=== PATIENT | male | born 1970 | race Caucasian/White ===

== ENCOUNTER 2022-06-12 12:04 | Inpatient (IN) ==
[2022-06-12] MEDS ORDERED: NALOXONE HCL 0.4 MG/1 ML VIAL/CARP ONE (12:19)
[2022-06-12] MEDS ORDERED: NALOXONE HCL 0.4 MG/1 ML VIAL/CARP IV STA (12:19)
--- NOTE | 2022-06-12 12:56 | CT Scan Report ---
CT SCAN OF THE BRAIN WITHOUT IV CONTRAST CLINICAL HISTORY: Change in mental status. COMPARISON STUDY: No priors TECHNIQUE: Unenhanced axial CT scan of the brain is performed from the vertex to the skull base. A d ose lowering technique was utilized adhering to the principles of ALARA. The patient was scanned twic e due to motion artifact. The examination is motion degraded. FINDINGS: Brain parenchyma: The brain parenchyma is normal in appearance. There is no hemorrhage, mass effect, or evidence of acute territorial ischemia by CT criteria. Seymour-white matter differentiation is preser ramone. No extra-axial fluid collection is seen. Ventricles, sulci, cisterns: Normal in configuration. Intracranial vasculature: The visualized intracranial vasculature at the skull base is normal in appe arance. Calvarium: Unremarkable. Sinuses and mastoids: There is trace mucosal thickening in the left maxillary antrum. The remaining p aranasal sinuses are clear. The mastoid air cells are well pneumatized. Orbits: The bony orbits are grossly intact. IMPRESSION: There is no hemorrhage, mass effect, or evidence of acute territorial ischemia by CT rashard flores. ACT 112: Negative or not required by law. Electronically signed by: Giovanni Vásquez M.D. 06/12/2022 12:54 PM
--- NOTE | 2022-06-12 13:00 | CT Scan Report ---
CT SCAN OF THE CERVICAL SPINE CLINICAL HISTORY: Change in mental status. Found unconscious. COMPARISON STUDY: No priors. TECHNIQUE: CT scan of the cervical spine is performed from the skull base to the upper thoracic spine . Images are reviewed in the axial, sagittal, and coronal planes. IV contrast was not administered fo r this examination. A dose lowering technique was utilized adhering to the principles of ALARA. CT DOSE: 2001.39 mGy.cm FINDINGS: Skeletal structures: The skeletal structures are well mineralized. There is no evidence of fracture o r subluxation involving the cervical spine. Vertebral body height and alignment are maintained. There are small anterior osteophytes. The odontoid process and lateral masses are intact. The atlantoaxial articulation is preserved no destructive productive degenerative change. The spinous processes appea r intact. Intervertebral discs: There is moderate to severe disc space narrowing at C6-C7. Only mild disc space narrowing is seen at the remaining cervical levels. Central canal: Posterior disc osteophyte complexes at C5-C6 and C6-C7 may contribute to mild acquired compromise of the central canal. Soft tissues: The prevertebral and paraspinous soft tissues are within normal limits. Calvarium: The visualized calvarium at the skull base appears intact. Brain parenchyma: Partially visualized brain parenchyma at the skull base is within normal limits. Sinuses and mastoids: The visualized paranasal sinuses are clear. The mastoid air cells are well pneu matized. Lung apices: Clear as visualized. IMPRESSION: There is no evidence of fracture or subluxation involving the cervical spine. ACT 112: Negative or not required by law. Electronically signed by: Giovanni Vásquez M.D. 06/12/2022 12:58 PM
[2022-06-12] MEDS ORDERED: SODIUM CHLORIDE 0.9% 1000ML 1,000 ML IV ONE (13:02)
[2022-06-12 13:15] LABS: Appearance Urine Cloudy (Clear); Bacteria Urine Automated Negative (Negative); Bilirubin Urine Negative (Negative); Blood Urine 2+ (Negative); Color Urine Yellow; Glucose Urine UA Negative (Negative); Ketones Urine 1+ (Negative); Leukocyte Esterase Urine Negative (Negative); Nitrite Urine Negative (Negative); Protein Urine Negative (Negative); RBC Urine Automated 0-4 /hpf (0-4); Urobilinogen Urine Negative (Negative); pH Urine 5.5 (4.5-7.5)
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
--- NOTE | 2022-06-12 13:27 | XRay Report ---
XR chest 1V portable CLINICAL HISTORY: ams TECHNIQUE: Single frontal radiograph of the chest was obtained. Comparison: None available at the time of this dictation. FINDINGS: No lines and tubes are seen. The cardiomediastinal silhouette is normal. The lungs are clear. No evid ence of pleural effusion or pneumothorax. IMPRESSION: No acute chest disease. ACT 112: Negative or not required by law. Electronically signed by: Dane Meadows M.D. 06/12/2022 1:25 PM
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
[2022-06-12 13:56] LABS: Acetaminophen < 3 ug/ml (10-30); Albumin Level 4.4 gm/dl (3.4-5.0); BUN Creatinine Ratio 20.5 (10-20); Bilirubin Direct 0.3 mg/dl (0-0.2); Bilirubin,Total 2.2 mg/dl (0.2-1.0); Creatinine Clr Calc Pharmacy 129.8 ml/min; Est GFR (African American) 115.3 ml/min; Est GFR (Non-African American) 99.5 ml/min; Magnesium 2.1 mg/dl (1.7-2.4); Potassium 3.8 mmol/L (3.5-5.1); Salicylate < 3.0 mg/dl (3.0-30); Total Protein 7.7 gm/dl (6.0-8.3)
[2022-06-12 13:59] LABS: Troponin I High Sensitivity 6.8 pg/ml (0-20)
[2022-06-12 14:00] LABS: Amphetamines+Metham, Urine Neg (Neg); Barbiturates, Urine Neg (Neg); Benzodiazepine, Urine Neg (Neg); Cocaine, Urine Neg (Neg); MDMA (Ecstacy), Urine Neg (Neg); Methadone, Urine Neg (Neg); Opiate, Urine Neg (Neg); Phencyclidine, Urine Neg (Neg)
[2022-06-12 14:17] LABS: Hematocrit (blood only) 44.4 % (40.1-51.0); Hemoglobin 15.3 g/dl (14.0-18.0); Mean Corpuscular Hemoglobin 30.7 pg (25.0-34.0); Mean Corpuscular Hgb Conc 34.5 g/dL (32.0-36.0); Mean Corpuscular Volume 89.2 fL (80.0-100.0); Mean Platelet Volume 9.6 fL (9.4-12.4); Platelet Count 280 K/uL (130-400); RDW Coefficient of Variation 13.2 % (11.5-14.5); RDW Standard Deviation 42.9 fL (36.4-46.3); Red Blood Count 4.98 M/uL (4.63-6.08)
[2022-06-12 14:20] LABS: INR 1.1 (0.9-1.1); Partial Thromboplastin Ratio 0.7; Partial Thromboplastin Time 20.5 Seconds (21.0-31.0); Prothrombin Time 11.3 Seconds (9.0-12.0)
[2022-06-12 14:28] LABS: Base Excess VBG 0.9 mEq/L; HCO3 VBG 24 mmol/L; Oxygen Saturation VBG 97.1 %; PCO2 VBG 32 mmHg (38-50); PO2 VBG 74 mmHg; pH VBG 7.48 (7.36-7.41)
[2022-06-12] MEDS ORDERED: RAPID SEQUENCE INDUCTION BAG ONE (14:29)
[2022-06-12 14:36] LABS: Basophils # (auto) 0.02 K/uL (0-0.2); Basophils % (auto) 0.1 %; Immature Granulocytes # (auto) 0.17 K/uL (0.00-0.02); Immature Granulocytes % (auto) 0.9 %; Lymphocytes # (auto) 0.73 K/uL (1.2-3.4); Lymphocytes % (auto) 3.8 %; Monocytes # (auto) 0.71 K/uL (0.24-0.82); Monocytes % (auto) 3.7 %; Neutrophils # (auto) 17.37 K/uL (1.4-6.5); Neutrophils % (auto) 91.5 %
[2022-06-12] MEDS ORDERED: PROPOFOL IV EMULSION 10 MG/ML 100 ML VIAL IV ONE (14:39)
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
[2022-06-12] MEDS ORDERED: VANCOMYCIN CONSULT ACTIVE PRN (14:47)
[2022-06-12] MEDS ORDERED: VANCOMYCIN HCL 2,750 MG in SODIUM CHLORIDE 0.9% 500 ML IV ONE (14:47)
[2022-06-12] MEDS ORDERED: cefTRIAXone SODIUM 2,000 MG/70 ML BAG IV STA (14:47)
[2022-06-12] MEDS: propofoL 1,000 MG/100 ML VIAL IV SCH ×3 (14:47→22:27)
[2022-06-12] MEDS ORDERED: fentaNYL citrate 2,500 MCG/250 ML BAG IV ONE (14:52)
[2022-06-12] MEDS ORDERED: fentaNYL BOLUS from BAG IV PRN (14:53)
[2022-06-12] MEDS ORDERED: PROPOFOL BOLUS FROM BAG IV PRN (14:53)
[2022-06-12] MEDS ORDERED: STAT IV Infusion **Titration per Protocol STA ×2 (14:53→16:45)
[2022-06-12] MEDS: fentaNYL citrate 2,500 MCG/250 ML BAG IV SCH (14:59)
[2022-06-12] MEDS ORDERED: VECURONIUM BROMIDE 10 MG VIAL IV ONE (15:19)
--- NOTE | 2022-06-12 15:30 | XRay Report ---
XR chest 1V portable CLINICAL HISTORY: ett placement TECHNIQUE: Single frontal radiograph of the chest was obtained. Comparison: Comparison is made to chest radiograph 06/12/2022 FINDINGS: An endotracheal tube is in place with the tip approximately 0.5 cm from the lissa. Cardiomegaly is n oted. Lungs are underinflated but clear. No evidence of pleural effusion or pneumothorax. IMPRESSION: Endotracheal tube is 0.5 cm above lissa and can be withdrawn approximately 2.5 cm for improved posit ioning. The lungs are clear. ACT 112: Negative or not required by law. Electronically signed by: Dane Meadows M.D. 06/12/2022 3:29 PM
[2022-06-12] MEDS ORDERED: XYLOCAINE 1%/SOD BICARB 20 ML VIAL INFIL ONE (15:33)
--- NOTE | 2022-06-12 16:42 | Electrocardiogram Report ---
Test Reason : Blood Pressure : / mmHG Vent. Rate : 078 BPM Atrial Rate : 078 BPM P-R Int : 162 ms QRS Dur : 108 ms QT Int : 384 ms P-R-T Axes : 040 047 042 degrees QTc Int : 437 ms Normal sinus rhythm Possible Left atrial enlargement Borderline ECG No previous ECGs available Confirmed by Oswaldo Osorio ([id number]) on 06/12/2022 4:42:18 PM Referred By: ED Confirmed By:Oswaldo Osorio
[2022-06-12] MEDS ORDERED: fentaNYL citrate 2,500 MCG/250 ML BAG IV SCH (16:45)
[2022-06-12] MEDS ORDERED: propofoL 1,000 MG/100 ML VIAL IV SCH (16:45)
[2022-06-12] MEDS ORDERED: AMPICILLIN 2,000 MG in SODIUM CHLOR 0.9% AD-VAN 100 ML IV STA (16:47)
[2022-06-12 16:51] LABS: Appearance CSF Hazy; CSF Count Tube # 3; CSF Xanthrochromic No xanthochromia; Color CSF Pink; Red Blood Cell CSF (A) 4000 /uL (0-); White Blood Cell CSF (A) 186 /uL (0-5)
[2022-06-12] MEDS ORDERED: DEXTROSE 5% IV STA (16:51)
[2022-06-12] MEDS ORDERED: ACYCLOVIR SOD IV STA (16:51)
[2022-06-12 16:57] LABS: Total Protein CSF 96.7 mg/dl (15-45)
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
[2022-06-12 17:41] LABS: Albumin Globulin Ratio 1.3 (0.9-2); Albumin Level 4.1 gm/dl (3.4-5.0); BUN Creatinine Ratio 20.2 (10-20); Calcium 8.2 mg/dl (8.5-10.1); Creatinine Clr Calc Pharmacy 109.8 ml/min; Est GFR (African American) 95.9 ml/min; Est GFR (Non-African American) 82.7 ml/min; Globulin 3.2 gm/dl (2.5-4.0); Phosphorus 2.4 mg/dl (2.5-4.9); Potassium 3.8 mmol/L (3.5-5.1); Total Protein 7.3 gm/dl (6.0-8.3)
[2022-06-12 17:44] LABS: Cryptococcus neoformans/ga PCR Not Detected (NotDetected); Cytomegalovirus PCR Not Detected (NotDetected); Enterovirus PCR Not Detected (NotDetected); Escherichia coli K1 PCR Not Detected (NotDetected); Haemophilius influenzae PCR Not Detected (NotDetected); Herpes Simplex Virus 1 PCR Not Detected (NotDetected); Herpes Simplex Virus 2 PCR Not Detected (NotDetected); Human Herpes Virus 6 PCR Not Detected (NotDetected); Human Parechovirus PCR Not Detected (NotDetected); Listeria monocytogenes PCR Not Detected (NotDetected); Neisseria meningitidis PCR Not Detected (NotDetected); Streptococcus agalactiae PCR Not Detected (NotDetected); Streptococcus pneumoniae PCR Not Detected (NotDetected); Varicella Zoster Virus PCR Not Detected (NotDetected)
--- NOTE | 2022-06-12 17:50 | Billing Data ---
Date of Service June 12, 2022 Coding Level of Care Code Critical Care 1st 30-74 mins Time Spent (min) 62
[2022-06-12] MEDS ORDERED: POTASSIUM PHOS 3 MMOL/1 ML INFUSION IV STA (17:53)
[2022-06-12] MEDS ORDERED: NORMOSOL-R 1,000 ML IV SCH (18:00)
[2022-06-12] MEDS ORDERED: ICU PROTOCOL FOR HYPERGLYCEMIA PRN (18:00)
[2022-06-12 18:13] LABS: Lyme Ab IgG w/WB Rflx Negative (Negative); Lyme Ab IgM w/WB Rflx Negative (Negative)
[2022-06-12 18:17] LABS: Mononuclear WBC CSF 85.9 %; Polynuclear WBC CSF 14.1 %
--- NOTE | 2022-06-12 18:44 | XRay Report ---
XR chest 1V portable HISTORY: NG tube placement. COMPARISON: Chest 06/12/2022. FINDINGS: Endotracheal tube terminates approximately 1.6 cm from the lissa. Nasogastric tube termina mireya below the diaphragm is within the distal stomach. No pneumothorax. No pleural effusions. There ar e low lung volumes. There is mild central pulmonary vascular congestion without overt edema. The hear t remains mildly enlarged. Right distal clavicle deformity appears to be chronic. Right suprahilar de nsity is likely due to the overlapping first rib. There is a right anterior shoulder dislocation. IMPRESSION: 1. The endotracheal tube terminates 1.6 cm from the lissa. 2. Nasogastric tube terminates at the distal stomach. 3. Right anterior shoulder dislocation. 4. Mild cardiomegaly with mild central pulmonary vascular congestion. ACT 112: Negative or not required by law. Electronically signed by: Oscar Vaughn M.D. 06/12/2022 6:42 PM
[2022-06-12] MEDS ORDERED: POTASSIUM PHOSPHATE 15 MMOL in SODIUM CHLORIDE 0.9% 250 ML IV ONE (18:45)
[2022-06-12] MEDS: PANTOprazole 40 MG in SYRINGE 0 ML IV SCH (18:57)
[2022-06-12 18:59] LABS: Thyroid Stimulating Hormone 0.287 uIu/ml (0.300-4.500)
[2022-06-12] MEDS: ACETAMINOPHEN 1000 MG/100 ML IV IV PRN (19:03)
[2022-06-12] MEDS: methylPREDNISolone 40 MG in SYRINGE 0 ML IV SCH (19:08)
[2022-06-12] MEDS ORDERED: ETOMIDATE 2 MG/ML 20 ML VIAL IV ONE (19:25)
[2022-06-12] MEDS ORDERED: SUCCINYLCHOLINE CHLORIDE 20 MG/ML 10 ML VIAL IV ONE (19:25)
[2022-06-12 19:39] LABS: T4 Free Thyroxine 0.71 ng/dl (0.61-1.60)
--- NOTE | 2022-06-12 20:33 | XRay Report ---
XR chest 1V portable HISTORY: while intubated, check line placments/lung wilson COMPARISON: Chest 06/12/2022. FINDINGS: There is a right anterior shoulder dislocation with a Hill-Sachs impaction fracture. This r emains unchanged. There are low lung volumes. The endotracheal tube terminates approximately 1.7 cm f rom the lissa. This remains unchanged. Nasogastric tube terminates in the distal stomach. The lungs appear clear. No pleural effusions. No pneumothorax. Stable mild cardiomegaly. Distal right clavicle deformity may represent an acute fracture. IMPRESSION: 1. Satisfactory support line placement as described above. 2. Right anterior shoulder dislocation with a Hill-Sachs impaction fracture. 3. Stable mild cardiomegaly. 4. Distal right clavicle deformity may represent an acute fracture. Follow-up dedicated right shoulde r radiograph recommended for further evaluation. ACT 112: Negative or not required by law. Electronically signed by: Oscar Vaughn M.D. 06/12/2022 8:31 PM
[2022-06-12] MEDS ORDERED: GADOBUTROL 65ML VIAL IV ONE (21:04)
[2022-06-12] MEDS: NORMOSOL-R 1,000 ML IV SCH (21:55)
[2022-06-12] MEDS: HEPARIN SOD 5,000 UNIT/0.5 ML VIAL SQ SCH (21:56)
[2022-06-12] MEDS ORDERED: ICU MODERATE HYPERGLYCEMIA PROTOCOL ONE (22:47)
[2022-06-12] MEDS ORDERED: PHARMACY GLYCEMIC MGMT CONSULT PRN (22:57)
[2022-06-12] MEDS ORDERED: CARBOHYDRATES FOR HYPOGLYCEMIA PO PRN (23:00)
[2022-06-12] MEDS ORDERED: GLUCAGON FOR INJ 1 MG VIAL IM PRN (23:00)
[2022-06-12] MEDS ORDERED: GLUCOSE 40% GEL 15 GM TUBE PO PRN (23:00)
[2022-06-12] MEDS ORDERED: DEXTROSE 50% 50 ML SYRINGE IV PRN (23:00)
[2022-06-12] MEDS ORDERED: GLUCOSE 10 TAB/TUBE PO PRN (23:00)
[2022-06-12] MEDS ORDERED: LANTUS PER UNIT CHARGE SQ ONE (23:15)
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
[2022-06-12] MEDS: INSULIN ASPART PER UNIT SC SCH (23:50)
[2022-06-12] MEDS: ALBUT/IPRATROP 3MG/0.5MG NEB 3 ML VIAL NEB SCH (23:56)
[2022-06-13] MEDS: propofoL 1,000 MG/100 ML VIAL IV SCH ×10 (00:56→21:29)
[2022-06-13] MEDS: AMPICILLIN 2,000 MG in SODIUM CHLOR 0.9% AD-VAN 100 ML IV SCH ×6 (01:37→21:48)
[2022-06-13] MEDS: cefTRIAXone SODIUM 2,000 MG in DEXTROSE 5% 50 ML IV SCH ×2 (03:02→15:10)
[2022-06-13] MEDS: VANCOMYCIN HCL 1,500 MG in SODIUM CHLORIDE 0.9% 500 ML IV SCH ×2 (03:36→15:11)
[2022-06-13] MEDS: INSULIN ASPART PER UNIT SC SCH ×5 (03:46→20:50)
[2022-06-13 04:34] LABS: iSTAT Allen Test Pass; iSTAT Art Bld Gas pCO2 Correct 44 mmHg (35-46); iSTAT Art Bld Gas pH Corrected 7.362 (7.35-7.45); iSTAT Arterial Blood Gas HCO3 25 meg/L (19-24); iSTAT Arterial Blood Gas pCO2 43 mmHg (35-46); iSTAT Arterial Blood Gas pH 7.37 (7.35-7.45); iSTAT Arterial Blood Gas pO2 90 mmHg (80-95); iSTAT Arterial Blood Gas pO2 C 94; iSTAT Carbon Dioxide 26 mmol/L (24-31); iSTAT FiO2 30 %; iSTAT Hematocrit 37 % (42-52); iSTAT Hemoglobin 12.6 g/dl (14.0-18.0); iSTAT Potassium 3.6 mmol/L (3.3-5.0); iSTAT Site L Radial; iSTAT Sodium 141 mmol/L (135-144)
[2022-06-13] MEDS: methylPREDNISolone 40 MG in SYRINGE 0 ML IV SCH ×2 (04:49→16:22)
[2022-06-13 05:15] LABS: Basophils # (auto) 0.02 K/uL (0-0.2); Basophils % (auto) 0.1 %; Hematocrit (blood only) 38.1 % (40.1-51.0); Hemoglobin 13.1 g/dl (14.0-18.0); Immature Granulocytes % (auto) 0.5 %; Lymphocytes # (auto) 1.58 K/uL (1.2-3.4); Lymphocytes % (auto) 8.1 %; Mean Corpuscular Hemoglobin 30.9 pg (25.0-34.0); Mean Corpuscular Hgb Conc 34.4 g/dL (32.0-36.0); Mean Corpuscular Volume 89.9 fL (80.0-100.0); Mean Platelet Volume 9.5 fL (9.4-12.4); Monocytes # (auto) 1.55 K/uL (0.24-0.82); Neutrophils # (auto) 16.15 K/uL (1.4-6.5); Neutrophils % (auto) 83.3 %; Platelet Count 195 K/uL (130-400); RDW Coefficient of Variation 13.5 % (11.5-14.5); RDW Standard Deviation 44.6 fL (36.4-46.3); Red Blood Count 4.24 M/uL (4.63-6.08)
[2022-06-13] MEDS: HEPARIN SOD 5,000 UNIT/0.5 ML VIAL SQ SCH ×3 (05:35→21:47)
[2022-06-13 05:47] LABS: Albumin Level 3.6 gm/dl (3.4-5.0); BUN Creatinine Ratio 21.3 (10-20); Bilirubin Direct 0.2 mg/dl (0-0.2); Bilirubin,Total 0.9 mg/dl (0.2-1.0); Calcium 7.7 mg/dl (8.5-10.1); Creatinine Clr Calc Pharmacy 103.9 ml/min; Est GFR (African American) 108.4 ml/min; Est GFR (Non-African American) 93.5 ml/min; Magnesium 2.2 mg/dl (1.7-2.4); Potassium 3.7 mmol/L (3.5-5.1); Total Protein 6.3 gm/dl (6.0-8.3)
[2022-06-13] MEDS: DEXTROSE 5% IV SCH ×3 (06:00→21:47)
[2022-06-13] MEDS: ACYCLOVIR SOD IV SCH ×3 (06:00→21:47)
[2022-06-13 06:24] LABS: A calco-baum cmplx NotReported Not Detected (NotDetected); Bact fragilis Not Reported Not Detected (NotDetected); C auris Not Reported Not Detected (NotDetected); Calbicans Not Reported Not Detected (NotDetected); Candida glabrata Not Reported Not Detected (NotDetected); Candida krusei Not Reported Not Detected (NotDetected); Cneoformans/gatti Not Reported Not Detected (NotDetected); Cparapsilosis Not Reported Not Detected (NotDetected); Ctropicalis Not Reported Not Detected (NotDetected); E cloacae compx Not Reported Not Detected (NotDetected); Efaecalis Not Reported Not Detected (NotDetected); Efaecium Not Reported Not Detected (NotDetected); Enterobacterales Not Reported Not Detected (NotDetected); Escherichia coli Not Reported Not Detected (NotDetected); H influenzae Not Reported Not Detected (NotDetected); K aerogenes Not Reported Not Detected (NotDetected); Koxytoca Not Reported Not Detected (NotDetected); Kpneumoniae grp Not Reported Not Detected (NotDetected); Lmonocyt Not Reported Not Detected (NotDetected); N meningitidis Not Reported Not Detected (NotDetected); P aeruginosa Not Reported Not Detected (NotDetected); Proteus spp Not Reported Not Detected (NotDetected); Salmonella spp Not Reported Not Detected (NotDetected); Smarcescens Not Reported Not Detected (NotDetected); Staph lugdunensis Not Reported DETECTED (NotDetected); Staph spp. Not Reported DETECTED (NotDetected); Staphaureus Not Reported Not Detected (NotDetected); Staphepi Not Reported DETECTED (NotDetected); Stenmaltophilia Not Reported Not Detected (NotDetected); Strep agal(GrpB) Not Reported Not Detected (NotDetected); Strep pneum Not Reported Not Detected (NotDetected); Strep pyog (GrpA) Not Reported Not Detected (NotDetected); Strep spp Not Reported Not Detected (NotDetected); mecAC Resistant Gene Not Detected (NotDetected)
[2022-06-13 06:27] LABS: Staphylococcus epidermidis DETECTED (NotDetected); Staphylococcus spp. DETECTED (NotDetected)
[2022-06-13 06:28] LABS: Staphylococcus lugdunensis DETECTED (NotDetected)
[2022-06-13] MEDS: ACETAMINOPHEN 1000 MG/100 ML IV IV PRN ×2 (06:33→16:22)
[2022-06-13] MEDS: NORMOSOL-R 1,000 ML IV SCH (06:46)
[2022-06-13] MEDS: ALBUT/IPRATROP 3MG/0.5MG NEB 3 ML VIAL NEB SCH ×3 (07:00→22:21)
--- NOTE | 2022-06-13 07:50 | XRay Report ---
SINGLE VIEW RIGHT SHOULDER CLINICAL HISTORY: Postreduction examination. FINDINGS: An AP view of the right shoulder is compared to study performed earlier the same day 022. The skeletal structures are well mineralized. There is persistent anterior shoulder dislocation. Again seen is a displaced avulsion fracture of the right humeral head and neck with a large dorsally displaced fragment. No additional fracture is clearly seen. Overlying soft tissue edema is noted pro ductive degenerative change is present at the acromioclavicular joint. The right lung parenchyma is c lear as imaged. IMPRESSION: 1. Persistent anterior shoulder dislocation. 2. A displaced fracture of the right humeral head and neck is again noted. Electronically signed by: Giovanni Vásquez M.D. 06/13/2022 7:49 AM
--- NOTE | 2022-06-13 08:11 | Magnetic Resonance Report ---
MRI OF THE BRAIN COMBO CLINICAL HISTORY: Change in mental status. Found unresponsive. Concern for meningitis. COMPARISON STUDY: CT of the brain dated 06/12/2022. TECHNIQUE: MRI of the brain was performed utilizing various T1 and T2-weighted sequences in the axial , sagittal, and coronal planes. Contrast-enhanced sequences were acquired following the administratio n of 12 cc of Gadavist. FINDINGS: Brain parenchyma: There is no hemorrhage or mass effect. There is no restricted diffusion to suggest acute ischemia. Question subtle leptomeningeal enhancement along the cerebellar cortex. This is best seen on axial postcontrast image #9. No enhancing mass lesion is identified on the postcontrast image s. Seymour-white matter differentiation is preserved. No extra-axial fluid collection is seen. The cereb ellar tonsils are normal in configuration. Ventricles, sulci, and cisterns: Normal in configuration. Pituitary and sella: Unremarkable. Intracranial vasculature: Normal flow voids are maintained at the skull base. Orbits: The bony orbits are grossly intact. Orbital contents are normal in appearance. Sinuses and mastoids: CT of the brain dated 06/12/2022. There is moderate mucosal thickening within th e ethmoid sinuses. Mild mucosal thickening is noted within the maxillary, frontal, and sphenoid sinus es. There is a small left mastoid effusion. Calvarium: Unremarkable. Cervical cord: Partially visualized cervical spinal cord is normal in morphology and signal intensity . IMPRESSION: 1. There is no hemorrhage, mass effect, or evidence of acute ischemia. 2. Question subtle leptomeningeal enhancement along the cerebellar cortex. This could be seen with me alex in the appropriate clinical setting. Correlate with clinical findings and lumbar puncture re sults. ACT 112: Negative or not required by law. Electronically signed by: Giovanni Vásquez M.D. 06/13/2022 8:08 AM
--- NOTE | 2022-06-13 08:34 | Critical Care Progress Note ---
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 (280-300) mOsm/kg Lactate (0.4-2.0) mmol/L Calcium (8.5-10.1) mg/dl Phosphorus (2.5-4.9) mg/dl Magnesium (1.7-2.4) mg/dl Total Bilirubin (0.2-1.0) mg/dl Direct Bilirubin (0-0.2) mg/dl AST (13-39) U/L ALT (7-52) U/L Alkaline Phosphatase (34-104) U/L Ammonia Troponin I High Sens (0-20) pg/ml Total Protein (6.0-8.3) gm/dl Albumin (3.4-5.0) gm/dl Globulin (2.5-4.0) gm/dl Albumin/Globulin Ratio (0.9-2) Lipase (11-82) U/L Procalcitonin (0-0.5) ng/ml TSH 0.287 L (0.300-4.500) uIu/ml Free T4 0.71 (0.61-1.60) ng/dl Prolactin ng/ml Urine Color Urine Appearance (Clear) Urine pH (4.5-7.5) Ur Specific [place] (1.000-1.030) Urine Protein (Negative) Urine Glucose (UA) (Negative) Urine Ketones (Negative) Urine Blood (Negative) Urine Nitrite (Negative) Urine Bilirubin (Negative) Urine Urobilinogen (Negative) Ur Leukocyte Esterase (Negative) Urine WBC (Auto) (0-5) /hpf Urine RBC (Auto) (0-4) /hpf U Hyaline Cast (Auto) (0-5) /lpf U Epithel Cells (Auto) (0-5) /lpf Urine Bacteria (Auto) (Negative) Urine Osmolality 741 (500-800) mOsm/kg Fluid Comment CSF Appearance CSF Color Xanthrochromic CSF WBC (0-5) /uL CSF RBC (0-) /uL CSF Cell Count Tube # CSF Mononuclear WBCs % % CSF Polynuclear WBCs % % CSF Chemistry Tube # CSF Glucose (40-70) mg/dl CSF Total Protein (15-45) mg/dl CSF VDRL CSF C.neoform/gat PCR (NotDetected) CSF CMV DNA (PCR) (NotDetected) CSF Enterovirus (PCR) (NotDetected) CSF E. coli K1 (PCR) (NotDetected) CSF H. influenzae (PCR) (NotDetected) CSF HSV I (PCR) (NotDetected) CSF HSV II (PCR) (NotDetected) CSF HHV 6 (PCR) (NotDetected) CSF L.monocytogenes PCR (NotDetected) CSF N. meningitidis PCR (NotDetected) CSF Parechovirus (PCR) (NotDetected) CSF S. agalactiae (PCR) (NotDetected) CSF S. pneumoniae (PCR) (NotDetected) CSF VZV DNA (PCR) (NotDetected) Nasal Screen MRSA (PCR) Negative (Negative) Salicylates (3.0-30) mg/dl Urine Opiates Screen (Neg) Ur Methadone, Qual (Neg) Acetaminophen (10-30) ug/ml Urine Barbiturates (Neg) Ur Phencyclidine (PCP) (Neg) U Amphetamin/Meth Scrn (Neg) MDMA (Ecstasy) Screen (Neg) U Benzodiazepines Scrn (Neg) Ur Cocaine Metabolite (Neg) U Marijuana (THC) Screen (Neg) U Marijuana THC Carboxy Drug Screen Comment Ethyl Alcohol mg/dL (<10.0) mg/dl Anaplasma Smear Babesia Smear Lyme Disease IgG Ab (Negative) Lyme IgG (Western Blot) Lyme IgG 18 kDa Band Lyme IgG 23 kDa Band Lyme IgG 28 kDa Band Lyme IgG 30 kDa Band Lyme IgG 39 kDa Band Lyme IgG 41 kDa Band Lyme IgG 45 kDa Band Lyme IgG 58 kDa Band Lyme IgG 66 kDa Band Lyme IgG 93 kDa Band Lyme IgM Ab (WB) Lyme Disease IgM Ab (Negative) Lyme IgM 23 kDa Band Lyme IgM 39 kDa Band Lyme IgM 41 kDa Band E.chaffeensis DNA (PCR) Q Fever Phase I IgG Ab Q Fever Phase I IgM Ab Q Fever Phase II IgG Ab Q Fever Phase II IgM Ab Rickettsia IgG Ab Rickettsia IgM Ab SARS-CoV-2, RNA, NAAT (NEGATIVE) Staphylococcus sp PCR (NotDetected) mecA/C-Methicil Resis Gene (NotDetected) Staph epidermidis (PCR) (NotDetected) Staph lugdunensis PCR (NotDetected) Typhus Fever IgG Ab Typhus Fever IgM Ab Bld Cult ID Panel PCR (NotDetected) 06/12/22 06/12/22 06/12/22 Range/Units 17:03 17:03 17:03 WBC (4.8-10.8) K/ul RBC (4.63-6.08) M/uL Hgb (14.0-18.0) g/dl POC Hgb (14.0-18.0) g/dl Hct (40.1-51.0) % POC Hct (42-52) % MCV (80.0-100.0) fL MCH (25.0-34.0) pg MCHC (32.0-36.0) g/dL RDW Std Deviation (36.4-46.3) fL RDW Coeff of Rob (11.5-14.5) % Plt Count (130-400) K/uL MPV (9.4-12.4) fL Immature Gran % (Auto) % Neut % (Auto) % Lymph % (Auto) % [place] % (Auto) % Eos % (Auto) % Baso % (Auto) % Neut # (Auto) (1.4-6.5) K/uL Lymph # (Auto) (1.2-3.4) K/uL [place] # (Auto) (0.24-0.82) K/uL Eos # (Auto) (0-0.50) K/uL Baso # (Auto) (0-0.2) K/uL Immature Gran # (Auto) (0.00-0.02) K/uL PT INR APTT PTT Ratio Sample Site POC pH (7.35-7.45) POC pCO2 (35-46) mmHg POC pO2 (80-95) mmHg POC HCO3 (19-24) angelito/L POC Total CO2 (24-31) mmol/L POC Base Excess (-9-1.8) angelito/L ABG pH (Temp Correct) (7.35-7.45) ABG pCO2 (Temp Corrct (35-46) mmHg POC ABG pO2 at Pt Temp POC ABG O2 Sat (90-95) % Lior Test VBG pH (7.36-7.41) VBG pCO2 (38-50) mmHg VBG pO2 mmHg VBG HCO3 mmol/L VBG O2 Saturation % VBG Base Excess mEq/L Carboxyhemoglobin % THgb O2 Delivery Device POC O2 Rate Minute Ventilation POC FiO2 % Tidal Volume PEEP POC Sodium (135-144) mmol/L Sodium (136-145) mmol/L POC Potassium (3.3-5.0) mmol/L Potassium (3.5-5.1) mmol/L Chloride (98-107) mmol/L Carbon Dioxide (21-32) mmol/L Anion Gap (3-11) BUN (6-23) mg/dl Creatinine (0.6-1.4) mg/dl Est Cr Clr Drug Dosing ml/min Est GFR ( Amer) ml/min Est GFR (Non-Af Amer) ml/min BUN/Creatinine Ratio (10-20) Glucose (70-99(Fasting)) mg/dl POC Glucose (70-99) mg/dl Osmolality (280-300) mOsm/kg Lactate (0.4-2.0) mmol/L Calcium (8.5-10.1) mg/dl Phosphorus (2.5-4.9) mg/dl Magnesium (1.7-2.4) mg/dl Total Bilirubin (0.2-1.0) mg/dl Direct Bilirubin (0-0.2) mg/dl AST (13-39) U/L ALT (7-52) U/L Alkaline Phosphatase (34-104) U/L Ammonia Troponin I High Sens (0-20) pg/ml Total Protein (6.0-8.3) gm/dl Albumin (3.4-5.0) gm/dl Globulin (2.5-4.0) gm/dl Albumin/Globulin Ratio (0.9-2) Lipase (11-82) U/L Procalcitonin (0-0.5) ng/ml TSH (0.300-4.500) uIu/ml Free T4 (0.61-1.60) ng/dl Prolactin ng/ml Urine Color Urine Appearance (Clear) Urine pH (4.5-7.5) Ur Specific [place] (1.000-1.030) Urine Protein (Negative) Urine Glucose (UA) (Negative) Urine Ketones (Negative) Urine Blood (Negative) Urine Nitrite (Negative) Urine Bilirubin (Negative) Urine Urobilinogen (Negative) Ur Leukocyte Esterase (Negative) Urine WBC (Auto) (0-5) /hpf Urine RBC (Auto) (0-4) /hpf U Hyaline Cast (Auto) (0-5) /lpf U Epithel Cells (Auto) (0-5) /lpf Urine Bacteria (Auto) (Negative) Urine Osmolality (500-800) mOsm/kg Fluid Comment CSF Appearance CSF Color Xanthrochromic CSF WBC (0-5) /uL CSF RBC (0-) /uL CSF Cell Count Tube # CSF Mononuclear WBCs % % CSF Polynuclear WBCs % % CSF Chemistry Tube # CSF Glucose (40-70) mg/dl CSF Total Protein (15-45) mg/dl CSF VDRL CSF C.neoform/gat PCR (NotDetected) CSF CMV DNA (PCR) (NotDetected) CSF Enterovirus (PCR) (NotDetected) CSF E. coli K1 (PCR) (NotDetected) CSF H. influenzae (PCR) (NotDetected) CSF HSV I (PCR) (NotDetected) CSF HSV II (PCR) (NotDetected) CSF HHV 6 (PCR) (NotDetected) CSF L.monocytogenes PCR (NotDetected) CSF N. meningitidis PCR (NotDetected) CSF Parechovirus (PCR) (NotDetected) CSF S. agalactiae (PCR) (NotDetected) CSF S. pneumoniae (PCR) (NotDetected) CSF VZV DNA (PCR) (NotDetected) Nasal Screen MRSA (PCR) (Negative) Salicylates (3.0-30) mg/dl Urine Opiates Screen (Neg) Ur Methadone, Qual (Neg) Acetaminophen (10-30) ug/ml Urine Barbiturates (Neg) Ur Phencyclidine (PCP) (Neg) U Amphetamin/Meth Scrn (Neg) MDMA (Ecstasy) Screen (Neg) U Benzodiazepines Scrn (Neg) Ur Cocaine Metabolite (Neg) U Marijuana (THC) Screen (Neg) U Marijuana THC Carboxy Drug Screen Comment Ethyl Alcohol mg/dL (<10.0) mg/dl Anaplasma Smear See Comment Babesia Smear See Comment Lyme Disease IgG Ab (Negative) Lyme IgG (Western Blot) Lyme IgG 18 kDa Band Lyme IgG 23 kDa Band Lyme IgG 28 kDa Band Lyme IgG 30 kDa Band Lyme IgG 39 kDa Band Lyme IgG 41 kDa Band Lyme IgG 45 kDa Band Lyme IgG 58 kDa Band Lyme IgG 66 kDa Band Lyme IgG 93 kDa Band Lyme IgM Ab (WB) Lyme Disease IgM Ab (Negative) Lyme IgM 23 kDa Band Lyme IgM 39 kDa Band Lyme IgM 41 kDa Band E.chaffeensis DNA (PCR) Pending Q Fever Phase I IgG Ab Pending Q Fever Phase I IgM Ab Pending Q Fever Phase II IgG Ab Pending Q Fever Phase II IgM Ab Pending [place] IgG Ab Pending [place] IgM Ab Pending SARS-CoV-2, RNA, NAAT (NEGATIVE) Staphylococcus sp PCR (NotDetected) mecA/C-Methicil Resis Gene (NotDetected) Staph epidermidis (PCR) (NotDetected) Staph lugdunensis PCR (NotDetected) Typhus Fever IgG Ab Pending Typhus Fever IgM Ab Pending Bld Cult ID Panel PCR (NotDetected) 06/12/22 06/12/22 06/12/22 Range/Units 17:03 16:36 16:36 WBC (4.8-10.8) K/ul RBC (4.63-6.08) M/uL Hgb (14.0-18.0) g/dl POC Hgb (14.0-18.0) g/dl Hct (40.1-51.0) % POC Hct (42-52) % MCV (80.0-100.0) fL MCH (25.0-34.0) pg MCHC (32.0-36.0) g/dL RDW Std Deviation (36.4-46.3) fL RDW Coeff of Rob (11.5-14.5) % Plt Count (130-400) K/uL MPV (9.4-12.4) fL Immature Gran % (Auto) % Neut % (Auto) % Lymph % (Auto) % [place] % (Auto) % Eos % (Auto) % Baso % (Auto) % Neut # (Auto) (1.4-6.5) K/uL Lymph # (Auto) (1.2-3.4) K/uL [place] # (Auto) (0.24-0.82) K/uL Eos # (Auto) (0-0.50) K/uL Baso # (Auto) (0-0.2) K/uL Immature Gran # (Auto) (0.00-0.02) K/uL PT INR APTT PTT Ratio Sample Site POC pH (7.35-7.45) POC pCO2 (35-46) mmHg POC pO2 (80-95) mmHg POC HCO3 (19-24) angelito/L POC Total CO2 (24-31) mmol/L POC Base Excess (-9-1.8) angelito/L ABG pH (Temp Correct) (7.35-7.45) ABG pCO2 (Temp Corrct (35-46) mmHg POC ABG pO2 at Pt Temp POC ABG O2 Sat (90-95) % Lior Test VBG pH (7.36-7.41) VBG pCO2 (38-50) mmHg VBG pO2 mmHg VBG HCO3 mmol/L VBG O2 Saturation % VBG Base Excess mEq/L Carboxyhemoglobin % THgb O2 Delivery Device POC O2 Rate Minute Ventilation POC FiO2 % Tidal Volume PEEP POC Sodium (135-144) mmol/L Sodium 139 (136-145) mmol/L POC Potassium (3.3-5.0) mmol/L Potassium 3.8 (3.5-5.1) mmol/L Chloride 108 H (98-107) mmol/L Carbon Dioxide 24 (21-32) mmol/L Anion Gap 7 (3-11) BUN 21 (6-23) mg/dl Creatinine 1.04 (0.6-1.4) mg/dl Est Cr Clr Drug Dosing 109.8 ml/min Est GFR ( Amer) 95.9 ml/min Est GFR (Non-Af Amer) 82.7 ml/min BUN/Creatinine Ratio 20.2 H (10-20) Glucose 169 H (70-99(Fasting)) mg/dl POC Glucose (70-99) mg/dl Osmolality (280-300) mOsm/kg Lactate (0.4-2.0) mmol/L Calcium 8.2 L (8.5-10.1) mg/dl Phosphorus 2.4 L (2.5-4.9) mg/dl Magnesium 2.0 (1.7-2.4) mg/dl Total Bilirubin 2.0 H (0.2-1.0) mg/dl Direct Bilirubin (0-0.2) mg/dl AST 31 (13-39) U/L ALT 25 (7-52) U/L Alkaline Phosphatase 39 (34-104) U/L Ammonia Troponin I High Sens (0-20) pg/ml Total Protein 7.3 (6.0-8.3) gm/dl Albumin 4.1 (3.4-5.0) gm/dl Globulin 3.2 (2.5-4.0) gm/dl Albumin/Globulin Ratio 1.3 (0.9-2) Lipase (11-82) U/L Procalcitonin (0-0.5) ng/ml TSH (0.300-4.500) uIu/ml Free T4 (0.61-1.60) ng/dl Prolactin ng/ml Urine Color Urine Appearance (Clear) Urine pH (4.5-7.5) Ur Specific [place] (1.000-1.030) Urine Protein (Negative) Urine Glucose (UA) (Negative) Urine Ketones (Negative) Urine Blood (Negative) Urine Nitrite (Negative) Urine Bilirubin (Negative) Urine Urobilinogen (Negative) Ur Leukocyte Esterase (Negative) Urine WBC (Auto) (0-5) /hpf Urine RBC (Auto) (0-4) /hpf U Hyaline Cast (Auto) (0-5) /lpf U Epithel Cells (Auto) (0-5) /lpf Urine Bacteria (Auto) (Negative) Urine Osmolality (500-800) mOsm/kg Fluid Comment CSF Appearance CSF Color Xanthrochromic CSF WBC (0-5) /uL CSF RBC (0-) /uL CSF Cell Count Tube # CSF Mononuclear WBCs % % CSF Polynuclear WBCs % % CSF Chemistry Tube # CSF Glucose (40-70) mg/dl CSF Total Protein (15-45) mg/dl CSF VDRL CSF C.neoform/gat PCR (NotDetected) CSF CMV DNA (PCR) (NotDetected) CSF Enterovirus (PCR) (NotDetected) CSF E. coli K1 (PCR) (NotDetected) CSF H. influenzae (PCR) (NotDetected) CSF HSV I (PCR) (NotDetected) CSF HSV II (PCR) (NotDetected) CSF HHV 6 (PCR) (NotDetected) CSF L.monocytogenes PCR (NotDetected) CSF N. meningitidis PCR (NotDetected) CSF Parechovirus (PCR) (NotDetected) CSF S. agalactiae (PCR) (NotDetected) CSF S. pneumoniae (PCR) (NotDetected) CSF VZV DNA (PCR) (NotDetected) Nasal Screen MRSA (PCR) (Negative) Salicylates (3.0-30) mg/dl Urine Opiates Screen (Neg) Ur Methadone, Qual (Neg) Acetaminophen (10-30) ug/ml Urine Barbiturates (Neg) Ur Phencyclidine (PCP) (Neg) U Amphetamin/Meth Scrn (Neg) MDMA (Ecstasy) Screen (Neg) U Benzodiazepines Scrn (Neg) Ur Cocaine Metabolite (Neg) U Marijuana (THC) Screen (Neg) U Marijuana THC Carboxy Drug Screen Comment Ethyl Alcohol mg/dL (<10.0) mg/dl Anaplasma Smear Babesia Smear Lyme Disease IgG Ab Negative (Negative) Lyme IgG (Western Blot) Pending Lyme IgG 18 kDa Band Pending Lyme IgG 23 kDa Band Pending Lyme IgG 28 kDa Band Pending Lyme IgG 30 kDa Band Pending Lyme IgG 39 kDa Band Pending Lyme IgG 41 kDa Band Pending Lyme IgG 45 kDa Band Pending Lyme IgG 58 kDa Band Pending Lyme IgG 66 kDa Band Pending Lyme IgG 93 kDa Band Pending Lyme IgM Ab (WB) Pending Lyme Disease IgM Ab Negative (Negative) Lyme IgM 23 kDa Band Pending Lyme IgM 39 kDa Band Pending Lyme IgM 41 kDa Band Pending E.chaffeensis DNA (PCR) Q Fever Phase I IgG Ab Q Fever Phase I IgM Ab Q Fever Phase II IgG Ab Q Fever Phase II IgM Ab [place]ettsia IgG Ab Rickettsia IgM Ab SARS-CoV-2, RNA, NAAT (NEGATIVE) Staphylococcus sp PCR (NotDetected) mecA/C-Methicil Resis Gene (NotDetected) Staph epidermidis (PCR) (NotDetected) Staph lugdunensis PCR (NotDetected) Typhus Fever IgG Ab Typhus Fever IgM Ab Bld Cult ID Panel PCR (NotDetected) 06/12/22 06/12/22 06/12/22 Range/Units 15:59 15:45 15:45 WBC (4.8-10.8) K/ul RBC (4.63-6.08) M/uL Hgb (14.0-18.0) g/dl POC Hgb (14.0-18.0) g/dl Hct (40.1-51.0) % POC Hct (42-52) % MCV (80.0-100.0) fL MCH (25.0-34.0) pg MCHC (32.0-36.0) g/dL RDW Std Deviation (36.4-46.3) fL RDW Coeff of Rob (11.5-14.5) % Plt Count (130-400) K/uL MPV (9.4-12.4) fL Immature Gran % (Auto) % Neut % (Auto) % Lymph % (Auto) % [place] % (Auto) % Eos % (Auto) % Baso % (Auto) % Neut # (Auto) (1.4-6.5) K/uL Lymph # (Auto) (1.2-3.4) K/uL [place] # (Auto) (0.24-0.82) K/uL Eos # (Auto) (0-0.50) K/uL Baso # (Auto) (0-0.2) K/uL Immature Gran # (Auto) (0.00-0.02) K/uL PT INR APTT PTT Ratio Sample Site POC pH (7.35-7.45) POC pCO2 (35-46) mmHg POC pO2 (80-95) mmHg POC HCO3 (19-24) angelito/L POC Total CO2 (24-31) mmol/L POC Base Excess (-9-1.8) angelito/L ABG pH (Temp Correct) (7.35-7.45) ABG pCO2 (Temp Corrct (35-46) mmHg POC ABG pO2 at Pt Temp POC ABG O2 Sat (90-95) % Lior Test VBG pH (7.36-7.41) VBG pCO2 (38-50) mmHg VBG pO2 mmHg VBG HCO3 mmol/L VBG O2 Saturation % VBG Base Excess mEq/L Carboxyhemoglobin % THgb O2 Delivery Device POC O2 Rate Minute Ventilation POC FiO2 % Tidal Volume PEEP POC Sodium (135-144) mmol/L Sodium (136-145) mmol/L POC Potassium (3.3-5.0) mmol/L Potassium (3.5-5.1) mmol/L Chloride (98-107) mmol/L Carbon Dioxide (21-32) mmol/L Anion Gap (3-11) BUN (6-23) mg/dl Creatinine (0.6-1.4) mg/dl Est Cr Clr Drug Dosing ml/min Est GFR ( Amer) ml/min Est GFR (Non-Af Amer) ml/min BUN/Creatinine Ratio (10-20) Glucose (70-99(Fasting)) mg/dl POC Glucose (70-99) mg/dl Osmolality (280-300) mOsm/kg Lactate (0.4-2.0) mmol/L Calcium (8.5-10.1) mg/dl Phosphorus (2.5-4.9) mg/dl Magnesium (1.7-2.4) mg/dl Total Bilirubin (0.2-1.0) mg/dl Direct Bilirubin (0-0.2) mg/dl AST (13-39) U/L ALT (7-52) U/L Alkaline Phosphatase (34-104) U/L Ammonia Troponin I High Sens (0-20) pg/ml Total Protein (6.0-8.3) gm/dl Albumin (3.4-5.0) gm/dl Globulin (2.5-4.0) gm/dl Albumin/Globulin Ratio (0.9-2) Lipase (11-82) U/L Procalcitonin (0-0.5) ng/ml TSH (0.300-4.500) uIu/ml Free T4 (0.61-1.60) ng/dl Prolactin ng/ml Urine Color Urine Appearance (Clear) Urine pH (4.5-7.5) Ur Specific [place] (1.000-1.030) Urine Protein (Negative) Urine Glucose (UA) (Negative) Urine Ketones (Negative) Urine Blood (Negative) Urine Nitrite (Negative) Urine Bilirubin (Negative) Urine Urobilinogen (Negative) Ur Leukocyte Esterase (Negative) Urine WBC (Auto) (0-5) /hpf Urine RBC (Auto) (0-4) /hpf U Hyaline Cast (Auto) (0-5) /lpf U Epithel Cells (Auto) (0-5) /lpf Urine Bacteria (Auto) (Negative) Urine Osmolality (500-800) mOsm/kg Fluid Comment CSF Appearance CSF Color Xanthrochromic CSF WBC (0-5) /uL CSF RBC (0-) /uL CSF Cell Count Tube # CSF Mononuclear WBCs % % CSF Polynuclear WBCs % % CSF Chemistry Tube # CSF Glucose (40-70) mg/dl CSF Total Protein (15-45) mg/dl CSF VDRL Pending CSF C.neoform/gat PCR Not Detected (NotDetected) CSF CMV DNA (PCR) Not Detected (NotDetected) CSF Enterovirus (PCR) Not Detected (NotDetected) CSF E. coli K1 (PCR) Not Detected (NotDetected) CSF H. influenzae (PCR) Not Detected (NotDetected) CSF HSV I (PCR) Not Detected (NotDetected) CSF HSV II (PCR) Not Detected (NotDetected) CSF HHV 6 (PCR) Not Detected (NotDetected) CSF L.monocytogenes PCR Not Detected (NotDetected) CSF N. meningitidis PCR Not Detected (NotDetected) CSF Parechovirus (PCR) Not Detected (NotDetected) CSF S. agalactiae (PCR) Not Detected (NotDetected) CSF S. pneumoniae (PCR) Not Detected (NotDetected) CSF VZV DNA (PCR) Not Detected (NotDetected) Nasal Screen MRSA (PCR) (Negative) Salicylates (3.0-30) mg/dl Urine Opiates Screen (Neg) Ur Methadone, Qual (Neg) Acetaminophen (10-30) ug/ml Urine Barbiturates (Neg) Ur Phencyclidine (PCP) (Neg) U Amphetamin/Meth Scrn (Neg) MDMA (Ecstasy) Screen (Neg) U Benzodiazepines Scrn (Neg) Ur Cocaine Metabolite (Neg) U Marijuana (THC) Screen (Neg) U Marijuana THC Carboxy Drug Screen Comment Ethyl Alcohol mg/dL (<10.0) mg/dl Anaplasma Smear Babesia Smear Lyme Disease IgG Ab (Negative) Lyme IgG (Western Blot) Lyme IgG 18 kDa Band Lyme IgG 23 kDa Band Lyme IgG 28 kDa Band Lyme IgG 30 kDa Band Lyme IgG 39 kDa Band Lyme IgG 41 kDa Band Lyme IgG 45 kDa Band Lyme IgG 58 kDa Band Lyme IgG 66 kDa Band Lyme IgG 93 kDa Band Lyme IgM Ab (WB) Lyme Disease IgM Ab (Negative) Lyme IgM 23 kDa Band Lyme IgM 39 kDa Band Lyme IgM 41 kDa Band E.chaffeensis DNA (PCR) Q Fever Phase I IgG Ab Q Fever Phase I IgM Ab Q Fever Phase II IgG Ab Q Fever Phase II IgM Ab [place]etts[place] IgG Ab Ricketts[place] IgM Ab SARS-CoV-2, RNA, NAAT NEGATIVE (NEGATIVE) Staphylococcus sp PCR (NotDetected) mecA/C-Methicil Resis Gene (NotDetected) Staph epidermidis (PCR) (NotDetected) Staph lugdunensis PCR (NotDetected) Typhus Fever IgG Ab Typhus Fever IgM Ab Bld Cult ID Panel PCR (NotDetected) 06/12/22 06/12/22 06/12/22 Range/Units 15:45 15:45 14:10 WBC (4.8-10.8) K/ul RBC (4.63-6.08) M/uL Hgb (14.0-18.0) g/dl POC Hgb (14.0-18.0) g/dl Hct (40.1-51.0) % POC Hct (42-52) % MCV (80.0-100.0) fL MCH (25.0-34.0) pg MCHC (32.0-36.0) g/dL RDW Std Deviation (36.4-46.3) fL RDW Coeff of Rob (11.5-14.5) % Plt Count (130-400) K/uL MPV (9.4-12.4) fL Immature Gran % (Auto) % Neut % (Auto) % Lymph % (Auto) % [place] % (Auto) % Eos % (Auto) % Baso % (Auto) % Neut # (Auto) (1.4-6.5) K/uL Lymph # (Auto) (1.2-3.4) K/uL [place] # (Auto) (0.24-0.82) K/uL Eos # (Auto) (0-0.50) K/uL Baso # (Auto) (0-0.2) K/uL Immature Gran # (Auto) (0.00-0.02) K/uL PT INR APTT PTT Ratio Sample Site POC pH (7.35-7.45) POC pCO2 (35-46) mmHg POC pO2 (80-95) mmHg POC HCO3 (19-24) angelito/L POC Total CO2 (24-31) mmol/L POC Base Excess (-9-1.8) angelito/L ABG pH (Temp Correct) (7.35-7.45) ABG pCO2 (Temp Corrct (35-46) mmHg POC ABG pO2 at Pt Temp POC ABG O2 Sat (90-95) % Lior Test VBG pH (7.36-7.41) VBG pCO2 (38-50) mmHg VBG pO2 mmHg VBG HCO3 mmol/L VBG O2 Saturation % VBG Base Excess mEq/L Carboxyhemoglobin % THgb O2 Delivery Device POC O2 Rate Minute Ventilation POC FiO2 % Tidal Volume PEEP POC Sodium (135-144) mmol/L Sodium (136-145) mmol/L POC Potassium (3.3-5.0) mmol/L Potassium (3.5-5.1) mmol/L Chloride (98-107) mmol/L Carbon Dioxide (21-32) mmol/L Anion Gap (3-11) BUN (6-23) mg/dl Creatinine (0.6-1.4) mg/dl Est Cr Clr Drug Dosing ml/min Est GFR ( Amer) ml/min Est GFR (Non-Af Amer) ml/min BUN/Creatinine Ratio (10-20) Glucose (70-99(Fasting)) mg/dl POC Glucose (70-99) mg/dl Osmolality (280-300) mOsm/kg Lactate (0.4-2.0) mmol/L Calcium (8.5-10.1) mg/dl Phosphorus (2.5-4.9) mg/dl Magnesium (1.7-2.4) mg/dl Total Bilirubin (0.2-1.0) mg/dl Direct Bilirubin (0-0.2) mg/dl AST (13-39) U/L ALT (7-52) U/L Alkaline Phosphatase (34-104) U/L Ammonia Troponin I High Sens (0-20) pg/ml Total Protein (6.0-8.3) gm/dl Albumin (3.4-5.0) gm/dl Globulin (2.5-4.0) gm/dl Albumin/Globulin Ratio (0.9-2) Lipase (11-82) U/L Procalcitonin (0-0.5) ng/ml TSH (0.300-4.500) uIu/ml Free T4 (0.61-1.60) ng/dl Prolactin ng/ml Urine Color Urine Appearance (Clear) Urine pH (4.5-7.5) Ur Specific [place] (1.000-1.030) Urine Protein (Negative) Urine Glucose (UA) (Negative) Urine Ketones (Negative) Urine Blood (Negative) Urine Nitrite (Negative) Urine Bilirubin (Negative) Urine Urobilinogen (Negative) Ur Leukocyte Esterase (Negative) Urine WBC (Auto) (0-5) /hpf Urine RBC (Auto) (0-4) /hpf U Hyaline Cast (Auto) (0-5) /lpf U Epithel Cells (Auto) (0-5) /lpf Urine Bacteria (Auto) (Negative) Urine Osmolality (500-800) mOsm/kg Fluid Comment CSF Appearance Hazy CSF Color [place] Xanthrochromic No xanthochromia CSF WBC 186 H* (0-5) /uL CSF RBC 4000 (0-) /uL CSF Cell Count Tube # 3 CSF Mononuclear WBCs % 85.9 % CSF Polynuclear WBCs % 14.1 % CSF Chemistry Tube # 1 CSF Glucose 109 H (40-70) mg/dl CSF Total Protein 96.7 H (15-45) mg/dl CSF VDRL CSF C.neoform/gat PCR (NotDetected) CSF CMV DNA (PCR) (NotDetected) CSF Enterovirus (PCR) (NotDetected) CSF E. coli K1 (PCR) (NotDetected) CSF H. influenzae (PCR) (NotDetected) CSF HSV I (PCR) (NotDetected) CSF HSV II (PCR) (NotDetected) CSF HHV 6 (PCR) (NotDetected) CSF L.monocytogenes PCR (NotDetected) CSF N. meningitidis PCR (NotDetected) CSF Parechovirus (PCR) (NotDetected) CSF S. agalactiae (PCR) (NotDetected) CSF S. pneumoniae (PCR) (NotDetected) CSF VZV DNA (PCR) (NotDetected) Nasal Screen MRSA (PCR) (Negative) Salicylates (3.0-30) mg/dl Urine Opiates Screen (Neg) Ur Methadone, Qual (Neg) Acetaminophen (10-30) ug/ml Urine Barbiturates (Neg) Ur Phencyclidine (PCP) (Neg) U Amphetamin/Meth Scrn (Neg) MDMA (Ecstasy) Screen (Neg) U Benzodiazepines Scrn (Neg) Ur Cocaine Metabolite (Neg) U Marijuana (THC) Screen (Neg) U Marijuana THC Carboxy Drug Screen Comment Ethyl Alcohol mg/dL < 10.0 (<10.0) mg/dl Anaplasma Smear Babesia Smear Lyme Disease IgG Ab (Negative) Lyme IgG (Western Blot) Lyme IgG 18 kDa Band Lyme IgG 23 kDa Band Lyme IgG 28 kDa Band Lyme IgG 30 kDa Band Lyme IgG 39 kDa Band Lyme IgG 41 kDa Band Lyme IgG 45 kDa Band Lyme IgG 58 kDa Band Lyme IgG 66 kDa Band Lyme IgG 93 kDa Band Lyme IgM Ab (WB) Lyme Disease IgM Ab (Negative) Lyme IgM 23 kDa Band Lyme IgM 39 kDa Band Lyme IgM 41 kDa Band E.chaffeensis DNA (PCR) Q Fever Phase I IgG Ab Q Fever Phase I IgM Ab Q Fever Phase II IgG Ab Q Fever Phase II IgM Ab [place] IgG Ab [place] IgM Ab SARS-CoV-2, RNA, NAAT (NEGATIVE) Staphylococcus sp PCR (NotDetected) mecA/C-Methicil Resis Gene (NotDetected) Staph epidermidis (PCR) (NotDetected) Staph lugdunensis PCR (NotDetected) Typhus Fever IgG Ab Typhus Fever IgM Ab Bld Cult ID Panel PCR (NotDetected) 06/12/22 06/12/22 06/12/22 Range/Units 14:08 14:08 14:07 WBC (4.8-10.8) K/ul RBC (4.63-6.08) M/uL Hgb (14.0-18.0) g/dl POC Hgb (14.0-18.0) g/dl Hct (40.1-51.0) % POC Hct (42-52) % MCV (80.0-100.0) fL MCH (25.0-34.0) pg MCHC (32.0-36.0) g/dL RDW Std Deviation (36.4-46.3) fL RDW Coeff of Rob (11.5-14.5) % Plt Count (130-400) K/uL MPV (9.4-12.4) fL Immature Gran % (Auto) % Neut % (Auto) % Lymph % (Auto) % [place] % (Auto) % Eos % (Auto) % Baso % (Auto) % Neut # (Auto) (1.4-6.5) K/uL Lymph # (Auto) (1.2-3.4) K/uL [place] # (Auto) (0.24-0.82) K/uL Eos # (Auto) (0-0.50) K/uL Baso # (Auto) (0-0.2) K/uL Immature Gran # (Auto) (0.00-0.02) K/uL PT INR APTT PTT Ratio Sample Site POC pH (7.35-7.45) POC pCO2 (35-46) mmHg POC pO2 (80-95) mmHg POC HCO3 (19-24) angelito/L POC Total CO2 (24-31) mmol/L POC Base Excess (-9-1.8) angelito/L ABG pH (Temp Correct) (7.35-7.45) ABG pCO2 (Temp Corrct (35-46) mmHg POC ABG pO2 at Pt Temp POC ABG O2 Sat (90-95) % Lior Test VBG pH (7.36-7.41) VBG pCO2 (38-50) mmHg VBG pO2 mmHg VBG HCO3 mmol/L VBG O2 Saturation % VBG Base Excess mEq/L Carboxyhemoglobin 2.3 % THgb O2 Delivery Device POC O2 Rate Minute Ventilation POC FiO2 % Tidal Volume PEEP POC Sodium (135-144) mmol/L Sodium (136-145) mmol/L POC Potassium (3.3-5.0) mmol/L Potassium (3.5-5.1) mmol/L Chloride (98-107) mmol/L Carbon Dioxide (21-32) mmol/L Anion Gap (3-11) BUN (6-23) mg/dl Creatinine (0.6-1.4) mg/dl Est Cr Clr Drug Dosing ml/min Est GFR ( Amer) ml/min Est GFR (Non-Af Amer) ml/min BUN/Creatinine Ratio (10-20) Glucose (70-99(Fasting)) mg/dl POC Glucose (70-99) mg/dl Osmolality 299 (280-300) mOsm/kg Lactate (0.4-2.0) mmol/L Calcium (8.5-10.1) mg/dl Phosphorus (2.5-4.9) mg/dl Magnesium (1.7-2.4) mg/dl Total Bilirubin (0.2-1.0) mg/dl Direct Bilirubin (0-0.2) mg/dl AST (13-39) U/L ALT (7-52) U/L Alkaline Phosphatase (34-104) U/L Ammonia Troponin I High Sens (0-20) pg/ml Total Protein (6.0-8.3) gm/dl Albumin (3.4-5.0) gm/dl Globulin (2.5-4.0) gm/dl Albumin/Globulin Ratio (0.9-2) Lipase (11-82) U/L Procalcitonin < 0.05 (0-0.5) ng/ml TSH (0.300-4.500) uIu/ml Free T4 (0.61-1.60) ng/dl Prolactin ng/ml Urine Color Urine Appearance (Clear) Urine pH (4.5-7.5) Ur Specific [place] (1.000-1.030) Urine Protein (Negative) Urine Glucose (UA) (Negative) Urine Ketones (Negative) Urine Blood (Negative) Urine Nitrite (Negative) Urine Bilirubin (Negative) Urine Urobilinogen (Negative) Ur Leukocyte Esterase (Negative) Urine WBC (Auto) (0-5) /hpf Urine RBC (Auto) (0-4) /hpf U Hyaline Cast (Auto) (0-5) /lpf U Epithel Cells (Auto) (0-5) /lpf Urine Bacteria (Auto) (Negative) Urine Osmolality (500-800) mOsm/kg Fluid Comment CSF Appearance CSF Color Xanthrochromic CSF WBC (0-5) /uL CSF RBC (0-) /uL CSF Cell Count Tube # CSF Mononuclear WBCs % % CSF Polynuclear WBCs % % CSF Chemistry Tube # CSF Glucose (40-70) mg/dl CSF Total Protein (15-45) mg/dl CSF VDRL CSF C.neoform/gat PCR (NotDetected) CSF CMV DNA (PCR) (NotDetected) CSF Enterovirus (PCR) (NotDetected) CSF E. coli K1 (PCR) (NotDetected) CSF H. influenzae (PCR) (NotDetected) CSF HSV I (PCR) (NotDetected) CSF HSV II (PCR) (NotDetected) CSF HHV 6 (PCR) (NotDetected) CSF L.monocytogenes PCR (NotDetected) CSF N. meningitidis PCR (NotDetected) CSF Parechovirus (PCR) (NotDetected) CSF S. agalactiae (PCR) (NotDetected) CSF S. pneumoniae (PCR) (NotDetected) CSF VZV DNA (PCR) (NotDetected) Nasal Screen MRSA (PCR) (Negative) Salicylates (3.0-30) mg/dl Urine Opiates Screen (Neg) Ur Methadone, Qual (Neg) Acetaminophen (10-30) ug/ml Urine Barbiturates (Neg) Ur Phencyclidine (PCP) (Neg) U Amphetamin/Meth Scrn (Neg) MDMA (Ecstasy) Screen (Neg) U Benzodiazepines Scrn (Neg) Ur Cocaine Metabolite (Neg) U Marijuana (THC) Screen (Neg) U Marijuana THC Carboxy Drug Screen Comment Ethyl Alcohol mg/dL (<10.0) mg/dl Anaplasma Smear Babesia Smear Lyme Disease IgG Ab (Negative) Lyme IgG (Western Blot) Lyme IgG 18 kDa Band Lyme IgG 23 kDa Band Lyme IgG 28 kDa Band Lyme IgG 30 kDa Band Lyme IgG 39 kDa Band Lyme IgG 41 kDa Band Lyme IgG 45 kDa Band Lyme IgG 58 kDa Band Lyme IgG 66 kDa Band Lyme IgG 93 kDa Band Lyme IgM Ab (WB) Lyme Disease IgM Ab (Negative) Lyme IgM 23 kDa Band Lyme IgM 39 kDa Band Lyme IgM 41 kDa Band E.chaffeensis DNA (PCR) Q Fever Phase I IgG Ab Q Fever Phase I IgM Ab Q Fever Phase II IgG Ab Q Fever Phase II IgM Ab [place]ettsia IgG Ab Rickettsia IgM Ab SARS-CoV-2, RNA, NAAT (NEGATIVE) Staphylococcus sp PCR (NotDetected) mecA/C-Methicil Resis Gene (NotDetected) Staph epidermidis (PCR) (NotDetected) Staph lugdunensis PCR (NotDetected) Typhus Fever IgG Ab Typhus Fever IgM Ab Bld Cult ID Panel PCR (NotDetected) 06/12/22 06/12/22 06/12/22 Range/Units 14:07 13:45 13:45 WBC (4.8-10.8) K/ul RBC (4.63-6.08) M/uL Hgb (14.0-18.0) g/dl POC Hgb (14.0-18.0) g/dl Hct (40.1-51.0) % POC Hct (42-52) % MCV (80.0-100.0) fL MCH (25.0-34.0) pg MCHC (32.0-36.0) g/dL RDW Std Deviation (36.4-46.3) fL RDW Coeff of Rob (11.5-14.5) % Plt Count (130-400) K/uL MPV (9.4-12.4) fL Immature Gran % (Auto) % Neut % (Auto) % Lymph % (Auto) % [place] % (Auto) % Eos % (Auto) % Baso % (Auto) % Neut # (Auto) (1.4-6.5) K/uL Lymph # (Auto) (1.2-3.4) K/uL [place] # (Auto) (0.24-0.82) K/uL Eos # (Auto) (0-0.50) K/uL Baso # (Auto) (0-0.2) K/uL Immature Gran # (Auto) (0.00-0.02) K/uL PT INR APTT PTT Ratio Sample Site POC pH (7.35-7.45) POC pCO2 (35-46) mmHg POC pO2 (80-95) mmHg POC HCO3 (19-24) angelito/L POC Total CO2 (24-31) mmol/L POC Base Excess (-9-1.8) angelito/L ABG pH (Temp Correct) (7.35-7.45) ABG pCO2 (Temp Corrct (35-46) mmHg POC ABG pO2 at Pt Temp POC ABG O2 Sat (90-95) % Lior Test VBG pH 7.48 H (7.36-7.41) VBG pCO2 32 L (38-50) mmHg VBG pO2 74 mmHg VBG HCO3 24 mmol/L VBG O2 Saturation 97.1 % VBG Base Excess 0.9 mEq/L Carboxyhemoglobin % THgb O2 Delivery Device POC O2 Rate Minute Ventilation POC FiO2 % Tidal Volume PEEP POC Sodium (135-144) mmol/L Sodium (136-145) mmol/L POC Potassium (3.3-5.0) mmol/L Potassium (3.5-5.1) mmol/L Chloride (98-107) mmol/L Carbon Dioxide (21-32) mmol/L Anion Gap (3-11) BUN (6-23) mg/dl Creatinine (0.6-1.4) mg/dl Est Cr Clr Drug Dosing ml/min Est GFR ( Amer) ml/min Est GFR (Non-Af Amer) ml/min BUN/Creatinine Ratio (10-20) Glucose (70-99(Fasting)) mg/dl POC Glucose (70-99) mg/dl Osmolality (280-300) mOsm/kg Lactate (0.4-2.0) mmol/L Calcium (8.5-10.1) mg/dl Phosphorus (2.5-4.9) mg/dl Magnesium (1.7-2.4) mg/dl Total Bilirubin (0.2-1.0) mg/dl Direct Bilirubin (0-0.2) mg/dl AST (13-39) U/L ALT (7-52) U/L Alkaline Phosphatase (34-104) U/L Ammonia 33.0 Troponin I High Sens (0-20) pg/ml Total Protein (6.0-8.3) gm/dl Albumin (3.4-5.0) gm/dl Globulin (2.5-4.0) gm/dl Albumin/Globulin Ratio (0.9-2) Lipase (11-82) U/L Procalcitonin (0-0.5) ng/ml TSH (0.300-4.500) uIu/ml Free T4 (0.61-1.60) ng/dl Prolactin ng/ml Urine Color Urine Appearance (Clear) Urine pH (4.5-7.5) Ur Specific [place] (1.000-1.030) Urine Protein (Negative) Urine Glucose (UA) (Negative) Urine Ketones (Negative) Urine Blood (Negative) Urine Nitrite (Negative) Urine Bilirubin (Negative) Urine Urobilinogen (Negative) Ur Leukocyte Esterase (Negative) Urine WBC (Auto) (0-5) /hpf Urine RBC (Auto) (0-4) /hpf U Hyaline Cast (Auto) (0-5) /lpf U Epithel Cells (Auto) (0-5) /lpf Urine Bacteria (Auto) (Negative) Urine Osmolality (500-800) mOsm/kg Fluid Comment CSF Appearance CSF Color Xanthrochromic CSF WBC (0-5) /uL CSF RBC (0-) /uL CSF Cell Count Tube # CSF Mononuclear WBCs % % CSF Polynuclear WBCs % % CSF Chemistry Tube # CSF Glucose (40-70) mg/dl CSF Total Protein (15-45) mg/dl CSF VDRL CSF C.neoform/gat PCR (NotDetected) CSF CMV DNA (PCR) (NotDetected) CSF Enterovirus (PCR) (NotDetected) CSF E. coli K1 (PCR) (NotDetected) CSF H. influenzae (PCR) (NotDetected) CSF HSV I (PCR) (NotDetected) CSF HSV II (PCR) (NotDetected) CSF HHV 6 (PCR) (NotDetected) CSF L.monocytogenes PCR (NotDetected) CSF N. meningitidis PCR (NotDetected) CSF Parechovirus (PCR) (NotDetected) CSF S. agalactiae (PCR) (NotDetected) CSF S. pneumoniae (PCR) (NotDetected) CSF VZV DNA (PCR) (NotDetected) Nasal Screen MRSA (PCR) (Negative) Salicylates (3.0-30) mg/dl Urine Opiates Screen (Neg) Ur Methadone, Qual (Neg) Acetaminophen (10-30) ug/ml Urine Barbiturates (Neg) Ur Phencyclidine (PCP) (Neg) U Amphetamin/Meth Scrn (Neg) MDMA (Ecstasy) Screen (Neg) U Benzodiazepines Scrn (Neg) Ur Cocaine Metabolite (Neg) U Marijuana (THC) Screen (Neg) U Marijuana THC Carboxy Drug Screen Comment Ethyl Alcohol mg/dL (<10.0) mg/dl Anaplasma Smear Babesia Smear Lyme Disease IgG Ab (Negative) Lyme IgG (Western Blot) Lyme IgG 18 kDa Band Lyme IgG 23 kDa Band Lyme IgG 28 kDa Band Lyme IgG 30 kDa Band Lyme IgG 39 kDa Band Lyme IgG 41 kDa Band Lyme IgG 45 kDa Band Lyme IgG 58 kDa Band Lyme IgG 66 kDa Band Lyme IgG 93 kDa Band Lyme IgM Ab (WB) Lyme Disease IgM Ab (Negative) Lyme IgM 23 kDa Band Lyme IgM 39 kDa Band Lyme IgM 41 kDa Band E.chaffeensis DNA (PCR) Q Fever Phase I IgG Ab Q Fever Phase I IgM Ab Q Fever Phase II IgG Ab Q Fever Phase II IgM Ab [place] IgG Ab Ricketts[place] IgM Ab SARS-CoV-2, RNA, NAAT (NEGATIVE) Staphylococcus sp PCR DETECTED A (NotDetected) mecA/C-Methicil Resis Gene Not Detected (NotDetected) Staph epidermidis (PCR) DETECTED A (NotDetected) Staph lugdunensis PCR DETECTED A (NotDetected) Typhus Fever IgG Ab Typhus Fever IgM Ab Bld Cult ID Panel PCR See PCR Comment (NotDetected) 06/12/22 06/12/22 06/12/22 Range/Units 13:45 13:45 13:45 WBC 19.00 H (4.8-10.8) K/ul RBC 4.98 (4.63-6.08) M/uL Hgb 15.3 (14.0-18.0) g/dl POC Hgb (14.0-18.0) g/dl Hct 44.4 (40.1-51.0) % POC Hct (42-52) % MCV 89.2 (80.0-100.0) fL MCH 30.7 (25.0-34.0) pg MCHC 34.5 (32.0-36.0) g/dL RDW Std Deviation 42.9 (36.4-46.3) fL RDW Coeff of Rob 13.2 (11.5-14.5) % Plt Count 280 (130-400) K/uL MPV 9.6 (9.4-12.4) fL Immature Gran % (Auto) 0.9 % Neut % (Auto) 91.5 % Lymph % (Auto) 3.8 % [place] % (Auto) 3.7 % Eos % (Auto) 0.0 % Baso % (Auto) 0.1 % Neut # (Auto) 17.37 H (1.4-6.5) K/uL Lymph # (Auto) 0.73 L (1.2-3.4) K/uL [place] # (Auto) 0.71 (0.24-0.82) K/uL Eos # (Auto) 0.00 (0-0.50) K/uL Baso # (Auto) 0.02 (0-0.2) K/uL Immature Gran # (Auto) 0.17 H (0.00-0.02) K/uL PT 11.3 INR 1.1 APTT 20.5 L PTT Ratio 0.7 Sample Site POC pH (7.35-7.45) POC pCO2 (35-46) mmHg POC pO2 (80-95) mmHg POC HCO3 (19-24) angelito/L POC Total CO2 (24-31) mmol/L POC Base Excess (-9-1.8) angelito/L ABG pH (Temp Correct) (7.35-7.45) ABG pCO2 (Temp Corrct (35-46) mmHg POC ABG pO2 at Pt Temp POC ABG O2 Sat (90-95) % Lior Test VBG pH (7.36-7.41) VBG pCO2 (38-50) mmHg VBG pO2 mmHg VBG HCO3 mmol/L VBG O2 Saturation % VBG Base Excess mEq/L Carboxyhemoglobin % THgb O2 Delivery Device POC O2 Rate Minute Ventilation POC FiO2 % Tidal Volume PEEP POC Sodium (135-144) mmol/L Sodium (136-145) mmol/L POC Potassium (3.3-5.0) mmol/L Potassium (3.5-5.1) mmol/L Chloride (98-107) mmol/L Carbon Dioxide (21-32) mmol/L Anion Gap (3-11) BUN (6-23) mg/dl Creatinine (0.6-1.4) mg/dl Est Cr Clr Drug Dosing ml/min Est GFR ( Amer) ml/min Est GFR (Non-Af Amer) ml/min BUN/Creatinine Ratio (10-20) Glucose (70-99(Fasting)) mg/dl POC Glucose (70-99) mg/dl Osmolality (280-300) mOsm/kg Lactate (0.4-2.0) mmol/L Calcium (8.5-10.1) mg/dl Phosphorus (2.5-4.9) mg/dl Magnesium (1.7-2.4) mg/dl Total Bilirubin (0.2-1.0) mg/dl Direct Bilirubin (0-0.2) mg/dl AST (13-39) U/L ALT (7-52) U/L Alkaline Phosphatase (34-104) U/L Ammonia Troponin I High Sens (0-20) pg/ml Total Protein (6.0-8.3) gm/dl Albumin (3.4-5.0) gm/dl Globulin (2.5-4.0) gm/dl Albumin/Globulin Ratio (0.9-2) Lipase (11-82) U/L Procalcitonin (0-0.5) ng/ml TSH (0.300-4.500) uIu/ml Free T4 (0.61-1.60) ng/dl Prolactin 2.57 ng/ml Urine Color Urine Appearance (Clear) Urine pH (4.5-7.5) Ur Specific [place] (1.000-1.030) Urine Protein (Negative) Urine Glucose (UA) (Negative) Urine Ketones (Negative) Urine Blood (Negative) Urine Nitrite (Negative) Urine Bilirubin (Negative) Urine Urobilinogen (Negative) Ur Leukocyte Esterase (Negative) Urine WBC (Auto) (0-5) /hpf Urine RBC (Auto) (0-4) /hpf U Hyaline Cast (Auto) (0-5) /lpf U Epithel Cells (Auto) (0-5) /lpf Urine Bacteria (Auto) (Negative) Urine Osmolality (500-800) mOsm/kg Fluid Comment CSF Appearance CSF Color Xanthrochromic CSF WBC (0-5) /uL CSF RBC (0-) /uL CSF Cell Count Tube # CSF Mononuclear WBCs % % CSF Polynuclear WBCs % % CSF Chemistry Tube # CSF Glucose (40-70) mg/dl CSF Total Protein (15-45) mg/dl CSF VDRL CSF C.neoform/gat PCR (NotDetected) CSF CMV DNA (PCR) (NotDetected) CSF Enterovirus (PCR) (NotDetected) CSF E. coli K1 (PCR) (NotDetected) CSF H. influenzae (PCR) (NotDetected) CSF HSV I (PCR) (NotDetected) CSF HSV II (PCR) (NotDetected) CSF HHV 6 (PCR) (NotDetected) CSF L.monocytogenes PCR (NotDetected) CSF N. meningitidis PCR (NotDetected) CSF Parechovirus (PCR) (NotDetected) CSF S. agalactiae (PCR) (NotDetected) CSF S. pneumoniae (PCR) (NotDetected) CSF VZV DNA (PCR) (NotDetected) Nasal Screen MRSA (PCR) (Negative) Salicylates (3.0-30) mg/dl Urine Opiates Screen (Neg) Ur Methadone, Qual (Neg) Acetaminophen (10-30) ug/ml Urine Barbiturates (Neg) Ur Phencyclidine (PCP) (Neg) U Amphetamin/Meth Scrn (Neg) MDMA (Ecstasy) Screen (Neg) U Benzodiazepines Scrn (Neg) Ur Cocaine Metabolite (Neg) U Marijuana (THC) Screen (Neg) U Marijuana THC Carboxy Drug Screen Comment Ethyl Alcohol mg/dL (<10.0) mg/dl Anaplasma Smear Babesia Smear Lyme Disease IgG Ab (Negative) Lyme IgG (Western Blot) Lyme IgG 18 kDa Band Lyme IgG 23 kDa Band Lyme IgG 28 kDa Band Lyme IgG 30 kDa Band Lyme IgG 39 kDa Band Lyme IgG 41 kDa Band Lyme IgG 45 kDa Band Lyme IgG 58 kDa Band Lyme IgG 66 kDa Band Lyme IgG 93 kDa Band Lyme IgM Ab (WB) Lyme Disease IgM Ab (Negative) Lyme IgM 23 kDa Band Lyme IgM 39 kDa Band Lyme IgM 41 kDa Band E.chaffeensis DNA (PCR) Q Fever Phase I IgG Ab Q Fever Phase I IgM Ab Q Fever Phase II IgG Ab Q Fever Phase II IgM Ab [place] IgG Ab [place] IgM Ab SARS-CoV-2, RNA, NAAT (NEGATIVE) Staphylococcus sp PCR (NotDetected) mecA/C-Methicil Resis Gene (NotDetected) Staph epidermidis (PCR) (NotDetected) Staph lugdunensis PCR (NotDetected) Typhus Fever IgG Ab Typhus Fever IgM Ab Bld Cult ID Panel PCR (NotDetected) 06/12/22 06/12/22 06/12/22 Range/Units 13:13 13:13 13:13 WBC (4.8-10.8) K/ul RBC (4.63-6.08) M/uL Hgb (14.0-18.0) g/dl POC Hgb (14.0-18.0) g/dl Hct (40.1-51.0) % POC Hct (42-52) % MCV (80.0-100.0) fL MCH (25.0-34.0) pg MCHC (32.0-36.0) g/dL RDW Std Deviation (36.4-46.3) fL RDW Coeff of Rob (11.5-14.5) % Plt Count (130-400) K/uL MPV (9.4-12.4) fL Immature Gran % (Auto) % Neut % (Auto) % Lymph % (Auto) % [place] % (Auto) % Eos % (Auto) % Baso % (Auto) % Neut # (Auto) (1.4-6.5) K/uL Lymph # (Auto) (1.2-3.4) K/uL [place] # (Auto) (0.24-0.82) K/uL Eos # (Auto) (0-0.50) K/uL Baso # (Auto) (0-0.2) K/uL Immature Gran # (Auto) (0.00-0.02) K/uL PT Cancelled INR Cancelled APTT Cancelled PTT Ratio Cancelled Sample Site POC pH (7.35-7.45) POC pCO2 (35-46) mmHg POC pO2 (80-95) mmHg POC HCO3 (19-24) angelito/L POC Total CO2 (24-31) mmol/L POC Base Excess (-9-1.8) angelito/L ABG pH (Temp Correct) (7.35-7.45) ABG pCO2 (Temp Corrct (35-46) mmHg POC ABG pO2 at Pt Temp POC ABG O2 Sat (90-95) % Lior Test VBG pH (7.36-7.41) VBG pCO2 (38-50) mmHg VBG pO2 mmHg VBG HCO3 mmol/L VBG O2 Saturation % VBG Base Excess mEq/L Carboxyhemoglobin % THgb O2 Delivery Device POC O2 Rate Minute Ventilation POC FiO2 % Tidal Volume PEEP POC Sodium (135-144) mmol/L Sodium (136-145) mmol/L POC Potassium (3.3-5.0) mmol/L Potassium (3.5-5.1) mmol/L Chloride (98-107) mmol/L Carbon Dioxide (21-32) mmol/L Anion Gap (3-11) BUN (6-23) mg/dl Creatinine (0.6-1.4) mg/dl Est Cr Clr Drug Dosing ml/min Est GFR ( Amer) ml/min Est GFR (Non-Af Amer) ml/min BUN/Creatinine Ratio (10-20) Glucose (70-99(Fasting)) mg/dl POC Glucose (70-99) mg/dl Osmolality (280-300) mOsm/kg Lactate 2.0 (0.4-2.0) mmol/L Calcium (8.5-10.1) mg/dl Phosphorus (2.5-4.9) mg/dl Magnesium (1.7-2.4) mg/dl Total Bilirubin (0.2-1.0) mg/dl Direct Bilirubin (0-0.2) mg/dl AST (13-39) U/L ALT (7-52) U/L Alkaline Phosphatase (34-104) U/L Ammonia Troponin I High Sens (0-20) pg/ml Total Protein (6.0-8.3) gm/dl Albumin (3.4-5.0) gm/dl Globulin (2.5-4.0) gm/dl Albumin/Globulin Ratio (0.9-2) Lipase (11-82) U/L Procalcitonin (0-0.5) ng/ml TSH (0.300-4.500) uIu/ml Free T4 (0.61-1.60) ng/dl Prolactin ng/ml Urine Color Urine Appearance (Clear) Urine pH (4.5-7.5) Ur Specific [place] (1.000-1.030) Urine Protein (Negative) Urine Glucose (UA) (Negative) Urine Ketones (Negative) Urine Blood (Negative) Urine Nitrite (Negative) Urine Bilirubin (Negative) Urine Urobilinogen (Negative) Ur Leukocyte Esterase (Negative) Urine WBC (Auto) (0-5) /hpf Urine RBC (Auto) (0-4) /hpf U Hyaline Cast (Auto) (0-5) /lpf U Epithel Cells (Auto) (0-5) /lpf Urine Bacteria (Auto) (Negative) Urine Osmolality (500-800) mOsm/kg Fluid Comment CSF Appearance CSF Color Xanthrochromic CSF WBC (0-5) /uL CSF RBC (0-) /uL CSF Cell Count Tube # CSF Mononuclear WBCs % % CSF Polynuclear WBCs % % CSF Chemistry Tube # CSF Glucose (40-70) mg/dl CSF Total Protein (15-45) mg/dl CSF VDRL CSF C.neoform/gat PCR (NotDetected) CSF CMV DNA (PCR) (NotDetected) CSF Enterovirus (PCR) (NotDetected) CSF E. coli K1 (PCR) (NotDetected) CSF H. influenzae (PCR) (NotDetected) CSF HSV I (PCR) (NotDetected) CSF HSV II (PCR) (NotDetected) CSF HHV 6 (PCR) (NotDetected) CSF L.monocytogenes PCR (NotDetected) CSF N. meningitidis PCR (NotDetected) CSF Parechovirus (PCR) (NotDetected) CSF S. agalactiae (PCR) (NotDetected) CSF S. pneumoniae (PCR) (NotDetected) CSF VZV DNA (PCR) (NotDetected) Nasal Screen MRSA (PCR) (Negative) Salicylates < 3.0 L (3.0-30) mg/dl Urine Opiates Screen (Neg) Ur Methadone, Qual (Neg) Acetaminophen < 3 L (10-30) ug/ml Urine Barbiturates (Neg) Ur Phencyclidine (PCP) (Neg) U Amphetamin/Meth Scrn (Neg) MDMA (Ecstasy) Screen (Neg) U Benzodiazepines Scrn (Neg) Ur Cocaine Metabolite (Neg) U Marijuana (THC) Screen (Neg) U Marijuana THC Carboxy Drug Screen Comment Ethyl Alcohol mg/dL (<10.0) mg/dl Anaplasma Smear Babesia Smear Lyme Disease IgG Ab (Negative) Lyme IgG (Western Blot) Lyme IgG 18 kDa Band Lyme IgG 23 kDa Band Lyme IgG 28 kDa Band Lyme IgG 30 kDa Band Lyme IgG 39 kDa Band Lyme IgG 41 kDa Band Lyme IgG 45 kDa Band Lyme IgG 58 kDa Band Lyme IgG 66 kDa Band Lyme IgG 93 kDa Band Lyme IgM Ab (WB) Lyme Disease IgM Ab (Negative) Lyme IgM 23 kDa Band Lyme IgM 39 kDa Band Lyme IgM 41 kDa Band E.chaffeensis DNA (PCR) Q Fever Phase I IgG Ab Q Fever Phase I IgM Ab Q Fever Phase II IgG Ab Q Fever Phase II IgM Ab [place] IgG Ab [place] IgM Ab SARS-CoV-2, RNA, NAAT (NEGATIVE) Staphylococcus sp PCR (NotDetected) mecA/C-Methicil Resis Gene (NotDetected) Staph epidermidis (PCR) (NotDetected) Staph lugdunensis PCR (NotDetected) Typhus Fever IgG Ab Typhus Fever IgM Ab Bld Cult ID Panel PCR (NotDetected) 06/12/22 06/12/22 06/12/22 Range/Units 13:13 13:13 12:14 WBC (4.8-10.8) K/ul RBC (4.63-6.08) M/uL Hgb (14.0-18.0) g/dl POC Hgb (14.0-18.0) g/dl Hct (40.1-51.0) % POC Hct (42-52) % MCV (80.0-100.0) fL MCH (25.0-34.0) pg MCHC (32.0-36.0) g/dL RDW Std Deviation (36.4-46.3) fL RDW Coeff of Rob (11.5-14.5) % Plt Count (130-400) K/uL MPV (9.4-12.4) fL Immature Gran % (Auto) % Neut % (Auto) % Lymph % (Auto) % [place] % (Auto) % Eos % (Auto) % Baso % (Auto) % Neut # (Auto) (1.4-6.5) K/uL Lymph # (Auto) (1.2-3.4) K/uL [place] # (Auto) (0.24-0.82) K/uL Eos # (Auto) (0-0.50) K/uL Baso # (Auto) (0-0.2) K/uL Immature Gran # (Auto) (0.00-0.02) K/uL PT INR APTT PTT Ratio Sample Site POC pH (7.35-7.45) POC pCO2 (35-46) mmHg POC pO2 (80-95) mmHg POC HCO3 (19-24) angelito/L POC Total CO2 (24-31) mmol/L POC Base Excess (-9-1.8) angelito/L ABG pH (Temp Correct) (7.35-7.45) ABG pCO2 (Temp Corrct (35-46) mmHg POC ABG pO2 at Pt Temp POC ABG O2 Sat (90-95) % Lior Test VBG pH (7.36-7.41) VBG pCO2 (38-50) mmHg VBG pO2 mmHg VBG HCO3 mmol/L VBG O2 Saturation % VBG Base Excess mEq/L Carboxyhemoglobin % THgb O2 Delivery Device POC O2 Rate Minute Ventilation POC FiO2 % Tidal Volume PEEP POC Sodium (135-144) mmol/L Sodium 140 (136-145) mmol/L POC Potassium (3.3-5.0) mmol/L Potassium 3.8 (3.5-5.1) mmol/L Chloride 107 (98-107) mmol/L Carbon Dioxide 23 (21-32) mmol/L Anion Gap 10 (3-11) BUN 18 (6-23) mg/dl Creatinine 0.88 (0.6-1.4) mg/dl Est Cr Clr Drug Dosing 129.8 ml/min Est GFR ( Amer) 115.3 ml/min Est GFR (Non-Af Amer) 99.5 ml/min BUN/Creatinine Ratio 20.5 H (10-20) Glucose 168 H (70-99(Fasting)) mg/dl POC Glucose 155 H (70-99) mg/dl Osmolality (280-300) mOsm/kg Lactate (0.4-2.0) mmol/L Calcium 9.0 (8.5-10.1) mg/dl Phosphorus (2.5-4.9) mg/dl Magnesium 2.1 (1.7-2.4) mg/dl Total Bilirubin 2.2 H (0.2-1.0) mg/dl Direct Bilirubin 0.3 H (0-0.2) mg/dl AST 26 (13-39) U/L ALT 26 (7-52) U/L Alkaline Phosphatase 40 (34-104) U/L Ammonia Cancelled Troponin I High Sens 6.8 (0-20) pg/ml Total Protein 7.7 (6.0-8.3) gm/dl Albumin 4.4 (3.4-5.0) gm/dl Globulin (2.5-4.0) gm/dl Albumin/Globulin Ratio (0.9-2) Lipase 21 (11-82) U/L Procalcitonin (0-0.5) ng/ml TSH (0.300-4.500) uIu/ml Free T4 (0.61-1.60) ng/dl Prolactin ng/ml Urine Color Urine Appearance (Clear) Urine pH (4.5-7.5) Ur Specific [place] (1.000-1.030) Urine Protein (Negative) Urine Glucose (UA) (Negative) Urine Ketones (Negative) Urine Blood (Negative) Urine Nitrite (Negative) Urine Bilirubin (Negative) Urine Urobilinogen (Negative) Ur Leukocyte Esterase (Negative) Urine WBC (Auto) (0-5) /hpf Urine RBC (Auto) (0-4) /hpf U Hyaline Cast (Auto) (0-5) /lpf U Epithel Cells (Auto) (0-5) /lpf Urine Bacteria (Auto) (Negative) Urine Osmolality (500-800) mOsm/kg Fluid Comment CSF Appearance CSF Color Xanthrochromic CSF WBC (0-5) /uL CSF RBC (0-) /uL CSF Cell Count Tube # CSF Mononuclear WBCs % % CSF Polynuclear WBCs % % CSF Chemistry Tube # CSF Glucose (40-70) mg/dl CSF Total Protein (15-45) mg/dl CSF VDRL CSF C.neoform/gat PCR (NotDetected) CSF CMV DNA (PCR) (NotDetected) CSF Enterovirus (PCR) (NotDetected) CSF E. coli K1 (PCR) (NotDetected) CSF H. influenzae (PCR) (NotDetected) CSF HSV I (PCR) (NotDetected) CSF HSV II (PCR) (NotDetected) CSF HHV 6 (PCR) (NotDetected) CSF L.monocytogenes PCR (NotDetected) CSF N. meningitidis PCR (NotDetected) CSF Parechovirus (PCR) (NotDetected) CSF S. agalactiae (PCR) (NotDetected) CSF S. pneumoniae (PCR) (NotDetected) CSF VZV DNA (PCR) (NotDetected) Nasal Screen MRSA (PCR) (Negative) Salicylates (3.0-30) mg/dl Urine Opiates Screen (Neg) Ur Methadone, Qual (Neg) Acetaminophen (10-30) ug/ml Urine Barbiturates (Neg) Ur Phencyclidine (PCP) (Neg) U Amphetamin/Meth Scrn (Neg) MDMA (Ecstasy) Screen (Neg) U Benzodiazepines Scrn (Neg) Ur Cocaine Metabolite (Neg) U Marijuana (THC) Screen (Neg) U Marijuana THC Carboxy Drug Screen Comment Ethyl Alcohol mg/dL (<10.0) mg/dl Anaplasma Smear Babesia Smear Lyme Disease IgG Ab (Negative) Lyme IgG (Western Blot) Lyme IgG 18 kDa Band Lyme IgG 23 kDa Band Lyme IgG 28 kDa Band Lyme IgG 30 kDa Band Lyme IgG 39 kDa Band Lyme IgG 41 kDa Band Lyme IgG 45 kDa Band Lyme IgG 58 kDa Band Lyme IgG 66 kDa Band Lyme IgG 93 kDa Band Lyme IgM Ab (WB) Lyme Disease IgM Ab (Negative) Lyme IgM 23 kDa Band Lyme IgM 39 kDa Band Lyme IgM 41 kDa Band E.chaffeensis DNA (PCR) Q Fever Phase I IgG Ab Q Fever Phase I IgM Ab Q Fever Phase II IgG Ab Q Fever Phase II IgM Ab Rickettsia IgG Ab Rickettsia IgM Ab SARS-CoV-2, RNA, NAAT (NEGATIVE) Staphylococcus sp PCR (NotDetected) mecA/C-Methicil Resis Gene (NotDetected) Staph epidermidis (PCR) (NotDetected) Staph lugdunensis PCR (NotDetected) Typhus Fever IgG Ab Typhus Fever IgM Ab Bld Cult ID Panel PCR (NotDetected) Medications Administered Current Inpatient Medications Acetaminophen (Acetaminophen 1000 Mg/100 Ml Iv) 1,000 mg IV Q8 PRN PRN Reason: Temp > 38 C Stop: 06/15/22 16:42 Last Admin: 06/13/22 06:33 Dose: 1,000 mg Albuterol (Albut/Ipratrop 3mg/0.5mg Neb 3 Ml Vial) 3 ml NEB Q8R REZA; Protocol Stop: 07/12/22 22:59 Last Admin: 06/13/22 07:00 Dose: 3 ml Dextrose (Dextrose 50% 50 Ml Syringe) 25 - 50 ml IV UD PRN; Protocol PRN Reason: Hypoglycemia Protocol Stop: 07/12/22 22:59 Fentanyl Citrate (Fentanyl Bolus From Bag) 50 mcg IV Q60M PRN PRN Reason: Pain or Agitation Stop: 06/26/22 16:44 Glucagon (Glucagon For Inj 1 Mg Vial) 1 mg IM UD PRN; Protocol PRN Reason: Hypoglycemia Protocol Stop: 07/12/22 22:59 Glucose (Glucose 40% Gel 15 Gm Tube) 15 - 30 gm PO UD PRN; Protocol PRN Reason: Hypoglycemia Protocol Stop: 07/12/22 22:59 Glucose (Glucose 10 Tab/Tube) 4 - 8 tab PO UD PRN; Protocol PRN Reason: Hypoglycemia Protocol Stop: 07/12/22 22:59 Heparin Sodium (Porcine) (Heparin Sod 5,000 Unit/0.5 Ml Vial) 5,000 units SQ Q8 [facility] Stop: 07/12/22 21:59 Last Admin: 06/13/22 05:35 Dose: 5,000 units Propofol (Diprivan) 1,000 mg in 100 mls @ 18.225 mls/hr IV .Q5H30M [facility]; Protocol Stop: 06/15/22 14:59 Last Admin: 06/13/22 07:31 Dose: Not Given Fentanyl Citrate (Fentanyl Citrate) 2,500 mcg in 250 mls @ 5 mls/hr IV .Q50H [facility]; Protocol Stop: 06/26/22 14:59 Last Titration: 06/13/22 07:00 Dose: 50 mcg/hr, 5 mls/hr Methylprednisolone 40 mg/ (Syringe) 0.64 mls @ 1.5 mls/min IV Q12H [facility] Stop: 07/12/22 17:14 Last Admin: 06/13/22 04:49 Dose: 1.5 mls/min Ceftriaxone Sodium 2,000 mg/ (Dextrose) 70 mls @ 100 mls/hr IV Q12H [facility]; Protocol Stop: 06/15/22 03:59 Last Infusion: 06/13/22 03:46 Dose: Infused Pantoprazole Sodium 40 mg/ (Syringe) 10 mls @ 5 mls/min IV DAILY [facility] Stop: 07/12/22 18:14 Last Admin: 06/12/22 18:57 Dose: 5 mls/min Vancomycin HCl 1,500 mg/ (Sodium Chloride) 530 mls @ 200 mls/hr IV Q12H [facility] Stop: 06/23/22 03:59 Last Infusion: 06/13/22 06:19 Dose: Infused Acyclovir Sodium 920 mg/ (Dextrose) 268.4 mls @ 250 mls/hr IV Q8H [facility] Stop: 06/23/22 00:59 Last Infusion: 06/13/22 07:07 Dose: Infused Ampicillin Sodium 2,000 mg/ (Sodium Chloride) 100 mls @ 200 mls/hr IV Q4H [facility] Stop: 06/22/22 21:59 Last Infusion: 06/13/22 06:06 Dose: Infused Insulin Aspart (Insulin Aspart Per Unit) 0 units SC Q4 [facility] Stop: 07/12/22 22:59 Last Admin: 06/13/22 03:46 Dose: Not Given Miscellaneous (Carbohydrates For Hypoglycemia ) 15 - 30 gm PO UD PRN PRN Reason: Hypoglycemia Treatment Stop: 07/12/22 22:59 Miscellaneous Information (Vancomycin Consult Active) 1 each N/A UD PRN PRN Reason: Consult Stop: 07/12/22 14:46 Miscellaneous Information (Pharmacy Glycemic Mgmt Consult) 1 each N/A UD PRN; Protocol PRN Reason: Consult Stop: 07/12/22 22:56 Propofol (Propofol Bolus From Bag) 20 mg IV Q5M PRN PRN Reason: Sedation Stop: 06/15/22 16:44 Resident Activity Tracking Resident Involvement: Resident Care Provided Care Provided: Adult Hospital Medicine
[2022-06-13] MEDS: PANTOprazole 40 MG in SYRINGE 0 ML IV SCH (08:59)
--- NOTE | 2022-06-13 10:32 | XRay Report ---
SINGLE VIEW RIGHT SHOULDER CLINICAL HISTORY: Right shoulder injury. FINDINGS: An AP view of the right shoulder is obtained. No prior studies are available for comparison at the time of dictation. The skeletal structures are well mineralized. There is anterior shoulder d islocation. There is a displaced avulsion fracture of the right humeral head and neck with a large do rsally displaced fragment. No additional fracture is clearly seen. Overlying soft tissue edema is not ed. Productive degenerative change is present at the acromioclavicular joint. The right lung parenchy ma is clear as imaged. IMPRESSION: 1. Anterior shoulder dislocation. 2. Displaced fracture of the right humeral head and neck. Electronically signed by: Giovanni Vásquez M.D. 06/13/2022 10:31 AM
--- NOTE | 2022-06-13 10:39 | Pharmacy Report ---
Pharmacy Vanc AUC Short Note - Date of Service June 13, 2022 - Assessment & Plan Assessment * 52 year old M receiving VANCOMYCIN + CEFTRIAXONE + AMPICILLIN + ACYCLOVIR for treatment of meningitis/encephalitis. * Pertinent microbiologic data includes: * CSF fluid: WBC 186, RBC 4000, protein 96.7, Glu 109 * CSF gram stain: many WBC but no organisms ID'd * CSF biofire panel negative * BLCX's: 1/2 growing GPC in clusters. * BLCX biofire: two CoN staph species ID'd: staph lugdunensis and staph epi, no methicillin resistance gene ID'd * anaplasma and babesia smears negative * multiple serologies pending: Lyme bands, e chaffeensis, q fever, rickettsia, typhus, CSF VDRL * Pharmacy is consulted to dose Vancomycin Plan Vancomycin * AUC/DARIAN is the preferred PK/PD target for vancomycin * AUC guided dosing is effective and associated with decreased risk of neph rotoxicity compared to traditional trough targets * 2750mg load x 1 given yesterday * Maint dose of 1500mg IV Q 12 hrs is predicted to achieve target AUC/DARIAN of 400-600 mg/L.hr and may be associated with a 15 % risk of nephrotoxicity * Will check trough w/ 3rd maint dose Pharmacy will continue to follow and will adjust dose/frequency as necessary. Thank you.
--- NOTE | 2022-06-13 10:42 | XRay Report ---
SINGLE VIEW CHEST CLINICAL HISTORY: Respiratory failure. FINDINGS: An AP, portable, upright chest radiograph is compared to study dated 06/12/2022. An enteric tube has been placed. This projects below the diaphragm over the distal stomach. An endotracheal tube is unchanged in position. The cardiomediastinal silhouette is top normal for projection. There is bi basilar scarring/atelectasis. No airspace consolidation or large pleural effusion is identified. No p neumothorax is seen. The bony thorax is grossly intact. IMPRESSION: 1. Endotracheal and enteric tubes are in place as above. 2. The lungs appear clear. ACT 112: Negative or not required by law. Electronically signed by: Giovanni Vásquez M.D. 06/13/2022 10:41 AM
--- NOTE | 2022-06-13 11:06 | Pharmacy Report ---
Pharmacy Glycemic Short Note 2 - Date of Service June 13, 2022 - Glycemic Short BSG Results (Last 24 hours): 06/12/22 06/12/22 06/12/22 12:14 13:13 17:03 Glucose 168 H 169 H POC Glucose 155 H 06/12/22 06/13/22 06/13/22 22:37 03:43 05:04 Glucose 135 H POC Glucose 188 H 167 H 06/13/22 08:18 Glucose POC Glucose 138 H OUTPATIENT ANTIDIABETIC REGIMEN: * No home meds reported * a1C = ? ASSESSMENT: * Critically ill 52 yo admitted to ICU for altered mental status, possible meningitis/encephalitis, need for mechanical ventilation * No known h/o diabetes however access to PMH limited. No A1c available for review. * Pt is currently receiving IV steroid, abx, and mechanical ventilation likely to continue at this time. Pt remains NPO, no plans for feeds yet. * Lantus 30 units given last night, however will hold off on ordering additional given uncertain PMH and ongoing NPO status * Novolog was started based upon weight and "moderate" stress level - would be reasonable to continue at this time. PLAN FOR INPATIENT GLYCEMIC CONTROL: * Check A1c * Basal insulin * None at this time * Bolus insulin * NovoLog per scale Q 4 hrs * Goal Range: Low 110 mg/dL - High 180 mg/dL * Correction Factor: 20 mg/dL/unit * Nutritional / Prandial insulin per carb ratio of 1 unit per 7 grams CHO consumed
--- NOTE | 2022-06-13 11:41 | Billing Data ---
Date of Service June 13, 2022 Coding Level of Care Code Critical Care 1st 30-74 mins Time Spent (min) 45
--- NOTE | 2022-06-13 12:14 | XRay Report ---
XR shoulder RT min 2V routine HISTORY: 52 years-old Male shoulder dislocation follow-up study in a patient with recent shoulder di slocation COMPARISON: Right shoulder radiographs 06/12/2022 TECHNIQUE: 2 views the right shoulder FINDINGS: The glenohumeral joint is located. Mild glenohumeral and AC joint osteoarthritis. Bony spurring versu s bone fragment along the inferior anterior margin of the glenoid. There is an acute fracture of the greater tuberosity and posterior surgical neck of the humerus which is displaced posterior laterally 11 mm. Possible acute nondisplaced distal right clavicular fracture. IMPRESSION: 1. Acute and displaced fracture of the greater tuberosity humerus and cortex of the surgical neck red emonstrated. 2. No dislocation. 3. Equivocal bone fragment along the anteroinferior glenoid. 4. Cortical irregularity of the distal clavicle redemonstrated. Correlate with point tenderness to ex clude an acute nondisplaced distal clavicular fracture. ACT 112: Negative or not required by law. The above report was generated using voice recognition software. It may contain grammatical, syntax o r spelling errors. Electronically signed by: Juancho Rutherford M.D. 06/13/2022 12:12 PM
[2022-06-13 13:09] LABS: Estimated Average Glucose 126 mg/dl
[2022-06-13] MEDS: TUBE FEEDING WATER FLUSH OG SCH ×4 (15:38→22:58)
[2022-06-13] MEDS: PROPOFOL BOLUS FROM BAG IV PRN ×2 (15:39→18:06)
[2022-06-13] MEDS: fentaNYL BOLUS from BAG IV PRN ×2 (15:40→18:06)
[2022-06-13] MEDS: fentaNYL citrate 2,500 MCG/250 ML BAG IV SCH (16:21)
[2022-06-13] MEDS: PEPTAMEN INTENSE VHP 1.0 CAL 1,000 ML BAG OG SCH (16:22)
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
[2022-06-13] MEDS: Patient's ALLERGY Info needs ENTERED SCH ×4 (17:11→18:36)
--- NOTE | 2022-06-13 17:13 | Hospitalist Progress Note ---
Date of Service June 13, 2022 Assessment & Plan (1) Altered mental state: Plan: Altered mental status. DDx includes toxic/drug-induced and infectious - Per Daughter Khushi: history of chest pain and hypertension. Does not take any prescription medications. No history of heart attack to their knowledge. Per daughter smokes electronic vaping/marijuana but not sure how much or often or where he gets it.Thinks ~twice per week. Smokes cigarettes. No other drug use to her knowledge. Does not think he drinks alcohol. No recent history of illnesses to her knowledge. Family is coming from [place] and will be arriving today/tomorrow. DIL #[phone] Ifeanyi will be available if other phone number does not work. Reduce GCS of 9 with clinical decline. Intubated in ER. Patient on propofol drip for sedation Family #[phone]. Given Rocephin in ER No anion gap, no acidosis -CThead: No acute findings CTC-spine: No acute fracture/subluxation -CXR: No acute findings -CT of the abdomen/pelvis degraded by motion artifact, T12/L1 compression fracture appreciated, hepatic steatosis, no bowel wall thickening/obstruction, normal appendix. Leukocytosis to 19 Hemoglobin normal VBG 7.4 8/32/74/24. Carboxyhemoglobin 2.3% Sodium, potassium, creatinine normal No transaminitis. Total bili 2.2. Prolactin normal. UA not infected appearing Toxicology positive for marijuana, otherwise negative. Ethyl alcohol pending. LP on 06/12 with [employer] negative. => Still intubated in ICU. Presently on empiric treatment for meningitis per ICU provider while we await culture data. DVT prophylaxis: SCDs Diet: N.p.o. Disposition: ICU, ETT in place (2) Endotracheally intubated: Admission and Anticipated Discharge Date Admission Date: June 12, 2022 Subjective Intubated and sedated Review of Systems Review of Systems: Unobtainable due to endotracheal tube and Unobtainable due to reduced consciousness Physical Exam Constitutional: + acute distress and + ill appearing Eyes: no conjunctival abnormality and + EOM not intact (Unable to participate) ENMT: external ear and nose normal, oropharynx normal Neck: trachea midline, no thyromegaly normal visual inspection Intubated Respiratory: normal respiratory effort, lungs clear to auscultation no respiratory distress Cardiovascular: RRR, no murmur, no edema Gastrointestinal (Abdomen): Inspection/Auscultation: abdomen normal to inspection; abdomen not distended Skin: no rashes, warm and dry Neurologic: + does not move all extremities and + not awake Psychiatric: Orientation: + not alert Results & Data Results & Data ([facility]) Vital Signs (Past 12 Hours) Vital Signs Temp Pulse Pulse Resp BP Pulse Ox O2 Del Method 06/13/22 15:30 38.0 C H 84 17 89 L 06/13/22 15:30 121/75 06/13/22 15:00 38.0 C H 80 19 06/13/22 15:00 113/61 06/13/22 14:30 38.1 C H 66 15 06/13/22 14:30 120/67 06/13/22 14:00 37.9 C H 71 17 06/13/22 14:00 125/68 06/13/22 13:30 37.9 C H 68 16 95 06/13/22 13:30 118/67 06/13/22 13:00 37.9 C H 70 17 06/13/22 13:00 114/68 06/13/22 12:30 37.7 C H 72 22 95 06/13/22 12:30 139/85 06/13/22 12:00 37.5 C 70 21 06/13/22 12:00 131/72 06/13/22 11:30 37.5 C 68 16 95 06/13/22 11:30 114/67 06/13/22 11:00 37.5 C 66 16 06/13/22 11:00 113/65 06/13/22 10:30 37.5 C 69 19 06/13/22 10:30 112/70 06/13/22 10:00 37.6 C H 69 18 06/13/22 10:00 117/66 06/13/22 09:30 37.6 C H 72 18 94 06/13/22 09:30 116/68 06/13/22 09:00 37.7 C H 75 17 06/13/22 09:00 105/68 06/13/22 16:00 06/13/22 08:00 Mechanical Vent 06/13/22 12:00 06/13/22 15:11 66 21 94 06/13/22 14:41 20 97 Mechanical Vent 06/13/22 10:58 66 20 98 06/13/22 08:30 37.6 C H 80 20 06/13/22 08:30 119/72 06/13/22 08:00 37.6 C H 86 21 90 06/13/22 08:00 135/80 06/13/22 07:30 119/74 06/13/22 07:30 37.6 C H 87 24 06/13/22 07:00 37.6 C H 72 22 91 06/13/22 07:00 130/67 06/13/22 08:00 06/13/22 07:11 74 18 97 06/13/22 07:10 74 18 97 Mechanical Vent 06/13/22 06:30 37.7 C H 72 18 106/72 95 Mechanical Vent 06/13/22 06:00 37.8 C H 68 20 110/66 96 Mechanical Vent 06/13/22 05:30 104/65 06/13/22 05:30 37.8 C H 69 21 104/65 95 Mechanical Vent FiO2 06/13/22 15:30 06/13/22 15:30 06/13/22 15:00 06/13/22 15:00 06/13/22 14:30 06/13/22 14:30 06/13/22 14:00 06/13/22 14:00 06/13/22 13:30 06/13/22 13:30 06/13/22 13:00 06/13/22 13:00 06/13/22 12:30 06/13/22 12:30 06/13/22 12:00 06/13/22 12:00 06/13/22 11:30 06/13/22 11:30 06/13/22 11:00 06/13/22 11:00 06/13/22 10:30 06/13/22 10:30 06/13/22 10:00 06/13/22 10:00 06/13/22 09:30 06/13/22 09:30 06/13/22 09:00 06/13/22 09:00 06/13/22 16:00 30 06/13/22 08:00 30 06/13/22 12:00 30 06/13/22 15:11 30 06/13/22 14:41 30 06/13/22 10:58 30 06/13/22 08:30 06/13/22 08:30 06/13/22 08:00 06/13/22 08:00 06/13/22 07:30 06/13/22 07:30 06/13/22 07:00 06/13/22 07:00 06/13/22 08:00 30 06/13/22 07:11 30 06/13/22 07:10 30 06/13/22 06:30 30 06/13/22 06:00 30 06/13/22 05:30 06/13/22 05:30 30 PG Care Time/CCT Total # of Minutes Spent Total Time Spent with Patient: Total time spent is greater than 50% in coordination of care (as documented) at patient's floor/unit and/or counseling patient: Coding Level of Care Code 09722 Subseq Hosp Care Lvl 3 Diagnoses Altered mental state R41.82 Endotracheally intubated Z97.8
--- NOTE | 2022-06-13 22:15 | CT Scan Report ---
CT shoulder RT wo con CLINICAL HISTORY: r/o humeral head/glenoid fx TECHNIQUE: Multidetector row helical CT of the right shoulder was performed without intravenous contr ast. Coronal and sagittal reformations were obtained. Automated dose lowering techniques and/or adjus tment according to patient size were utilized for this examination. CT DOSE: 1455.54 mGy.cm Comparison: Comparison is made to right shoulder radiographs 06/13/2022 FINDINGS: There is a acute comminuted fracture of the humerus at the greater tuberosity which does not involve the humeral head. Bone fragments are seen in the anterior inferior aspect of the glenoid. The glenohu meral articulation is a normal anatomic arrangement. No joint effusion is seen. Soft tissue swelling and intramuscular hematoma of the subscapularis are seen. A few foci of subcutaneous emphysema are s een. Well-corticated ossicle at the tip of the glenoid is a chronic finding. IMPRESSION: 1. Acute displaced fracture of the greater tuberosity of the humerus in the cortex of the surgical n ever. 2. There is a mildly comminuted fracture of the anterior-inferior glenoid. 3. No shoulder dislocation. 4. The distal clavicle demonstrates a well-corticated ossicle which is a chronic finding. 5. Soft tissue swelling, subcutaneous emphysema, and intramuscular hematoma the subscapularis. ACT 112: Negative or not required by law. Electronically signed by: Dane Meadows M.D. 06/13/2022 10:12 PM
[2022-06-14] MEDS: propofoL 1,000 MG/100 ML VIAL IV SCH ×11 (00:16→21:45)
[2022-06-14] MEDS: INSULIN ASPART PER UNIT SC SCH ×7 (00:27→23:36)
[2022-06-14] MEDS: AMPICILLIN 2,000 MG in SODIUM CHLOR 0.9% AD-VAN 100 ML IV SCH ×6 (01:54→21:29)
[2022-06-14] MEDS: TUBE FEEDING WATER FLUSH OG SCH ×6 (03:10→23:32)
[2022-06-14] MEDS ORDERED: VANCOMYCIN LEVEL ONE (03:30)
[2022-06-14 03:41] LABS: Basophils # (auto) 0.02 K/uL (0-0.2); Basophils % (auto) 0.1 %; Hematocrit (blood only) 34.4 % (40.1-51.0); Hemoglobin 11.7 g/dl (14.0-18.0); Immature Granulocytes # (auto) 0.11 K/uL (0.00-0.02); Immature Granulocytes % (auto) 0.6 %; Lymphocytes # (auto) 1.49 K/uL (1.2-3.4); Lymphocytes % (auto) 8.7 %; Mean Corpuscular Volume 91.2 fL (80.0-100.0); Mean Platelet Volume 9.6 fL (9.4-12.4); Monocytes # (auto) 1.32 K/uL (0.24-0.82); Monocytes % (auto) 7.7 %; Neutrophils # (auto) 14.28 K/uL (1.4-6.5); Neutrophils % (auto) 82.9 %; Platelet Count 177 K/uL (130-400); RDW Coefficient of Variation 13.3 % (11.5-14.5); RDW Standard Deviation 44.9 fL (36.4-46.3); Red Blood Count 3.77 M/uL (4.63-6.08); White Blood Count 17.22 K/ul (4.8-10.8)
[2022-06-14] MEDS: cefTRIAXone SODIUM 2,000 MG in DEXTROSE 5% 50 ML IV SCH ×2 (03:41→15:38)
[2022-06-14] MEDS: VANCOMYCIN HCL 1,500 MG in SODIUM CHLORIDE 0.9% 500 ML IV SCH (03:42)
[2022-06-14 04:06] LABS: Alanine Aminotransferase 21 U/L (7-52); Albumin Level 3.2 gm/dl (3.4-5.0); Alkaline Phosphatase 27 U/L (34-104); Anion Gap 1 (3-11); Aspartate Aminotransferase 25 U/L (13-39); BUN Creatinine Ratio 23.4 (10-20); Bilirubin,Total 0.5 mg/dl (0.2-1.0); Blood Urea Nitrogen 18 mg/dl (6-23); Calcium 7.8 mg/dl (8.5-10.1); Carbon Dioxide 29 mmol/L (21-32); Chloride 108 mmol/L (98-107); Est GFR (African American) 121.8 ml/min; Est GFR (Non-African American) 105.1 ml/min; Glucose 120 mg/dl (70-99(Fasting)); Magnesium 2.5 mg/dl (1.7-2.4); Potassium 4.4 mmol/L (3.5-5.1); Sodium 138 mmol/L (136-145)
[2022-06-14] MEDS: methylPREDNISolone 40 MG in SYRINGE 0 ML IV SCH (04:24)
[2022-06-14] MEDS: HEPARIN SOD 5,000 UNIT/0.5 ML VIAL SQ SCH ×3 (05:24→21:29)
[2022-06-14] MEDS: ACYCLOVIR SOD IV SCH ×3 (05:27→21:28)
[2022-06-14] MEDS: DEXTROSE 5% IV SCH ×3 (05:27→21:28)
[2022-06-14] MEDS: fentaNYL citrate 2,500 MCG/250 ML BAG IV SCH ×3 (07:38→13:06)
[2022-06-14] MEDS: ALBUT/IPRATROP 3MG/0.5MG NEB 3 ML VIAL NEB SCH ×2 (07:41→15:05)
--- NOTE | 2022-06-14 07:53 | Critical Care Progress Note ---
Date of Service June 14, 2022 Assessment & Plan (1) Endotracheally intubated: Plan: ICU Assessment and Plans Reason Critically Ill: 52yo Male with PMH chest pain HTN brought to ED by EMS found in AMS which progressed to reduced consciousness, admitted to ICU for AMS tachypnea and fever. Neuro - [facility] ICU: POSITIVE Sedation: Propofol, fentanyl Analgesia: PRN fentanyl, IV tylenol RASS -2 AMS -based on chart check, patient arrived altered later became unresponsive -urine drug screen +marijuana -ammonia 33, no anion gap -no response to naloxone -Head CT and cervical spine CT unremarkable -CXR: Endotracheal tube is 0.5 cm above lissa and can be withdrawn approximately 2.5 cm for improved positioning. The lungs are clear. -CT Abd/Pelvis: Suboptimal study due to the motion and streak artifact. Acute to subacute mild superior endplate compression fractures at T12 and L1. Hepatic steatosis. No bowel wall thickening or obstruction. Normal appendix. Cardiac - HTN -on admit 173/88 improved with propofol -EKG Normal sinus rhythm. Possible Left atrial enlargement -echo ordered, dificult study given body habitus. Normal EF. Unable to assess endocarditis Respiratory - Intubated -CXR: Endotracheal tube is 0.5 cm above lissa and can be withdrawn approximately 2.5 cm for improved positioning. The lungs are clear. -POC pH 7.37, pCO2 43 -VT 450, RR 15, PEEP 5, FiO2 30 -noted breathing over vent. Wheeze-improved -ordered methylprednisolone 40mg IV daily -albuterol NEB q8R GI - NPO NG tube in place, recieiving nutritional formula UD Protonix 40mg IV Daily RENAL/LYTES - No significant electrolyte derangement. Replace lytes as needed Mg 2.5 Ca 7.8 - No concerns at this time. De La Vega present ENDO - No concerns at this time SSI A1c 6 TSH 0.287, free t4 wnl HEME - Stable H&H. 13.1-->11.7 Will monitor for any drops in the setting of Heparin gtt ID - Concern for Meningitis -Ongoing fever 37.7C, WBC 19.4-->17.22 -IV tylenol q8 -lactate procal wnl, normal prolactin -continue Rocephin for possible strep -continue Vancomycin for possible rocephin-resistant strep -continue Acyclovir for possible herpes -continue ampicillin for possible listeria -hold doxycycline for tick borne illness at this time peripheral smear negative tick panel pending -UA neg -CSF culture pending -blood culture pending -CSF WBC 186, glu 109, TP 96.7, biofire neg -Brain MRI: Question subtle leptomeningeal enhancement along the cerebellar cortex. This could be seen with meningitis in the appropriate clinical setting. Bacteremia -serology + staph, staph epidermidis, staph lugdunensis -blood cultures gram + cocci in clusters, blood cultures repeated 06/13, awaiting sensitivities INTEGUMENTARY - skin clean dry intact no rashes noted Anterior dislocation of right shoulder -reduced in ED, confirmed by shoulder XR -ortho consulted, noted fracture, repeat CT when stable, may repair in 2 weeks when stable -right arm in sling LINES/IV ACCESS - PIVs intact. Intubated NG tube present De La Vega present soft restraints on right and left wrist for removal of medical equipment DVT PROPHYLAXIS - Heparin gtt. Thank you for allowing us to be part of this patient's care. Please refer to Dr. Fletcher's documentation for any further recommendations. (2) Altered mental state: (3) Hypertension: Admission and Anticipated Discharge Date Admission Date: June 12, 2022 Supervising Physician Co-Signing Physician Notes Dr. Jackson was the resident-physician during care of patient. I separately evaluated patient for slater portions of the history and the exam. I was present during the critical portion of medical decision making, and I discussed the case with the resident. I generally agree with the findings and plan except for any additions/exceptions noted. Patient seen and examined at bedside. No acute distress, no adverse events overnight. Patient is still spiking fever T-max 37.7. He was fighting the vent at the time of examination for which she was given bolus of propofol as well as fentanyl was increased Constitutional: No acute distress HEENT: PERRLA, positive ETT Respiratory system: Decreased air entry bilaterally, no wheeze, no rhonchi, no crackles CVS: S1-S2 positive, no murmurs or gallops Abdomen: Soft, nontender, nondistended, positive bowel sounds x4, obese Extremities: +2 pulses bilaterally radialis/ dorsalis pedis, no cyanosis, no ed danna, right arm in sling Neuro: Intubated and sedated, breathing over the vent, opening his eyes, not following commands Psych: Unable to assess G/U: Positive De La Vega --Prophylaxis VTE: Heparin GI: Protonix Lines: Peripheral Diet: Start tube feeds Plan: In/out: +2.9 L, urine output 1475 Chest x-ray does not show any significant change compared to yesterday. ET tube we will titrate by 1 cm again We will give a dose of Lasix 20 mg Decreased Solu-Medrol to 40 mg once a day 2D echo was a poor study. Valvular structures were not able to be visualized properly. Repeat blood cultures have been negative so far. I do not think there is indication for RIANA. CT of the right shoulder does acute displaced fracture of the greater tuberosity of the humerus, mildly comminuted fracture of the anterior-inferior glenoid. No dislocation. Continue with antibiotics for meningitis. Patient's family was at bedside but updated regarding patient's condition. I have personally spent 40 minutes of critical care time in the direct management of this patient. This is a life/limb threatening event. This includes time spent evaluating patient, direct bedside care, chart review, placing orders, interpretation of diagnostic studies, discussion with c onsultants, patient, and/or family members regarding treatment decisions, as well as other required patient management activities. This time is exclusive of all separately billable procedures, and teaching time and separate from and in addition to any other critical care service time. Subjective Patient seen at bedside, intubated sedated will open eyes in response to physical stimulation, still unable to follow commands. No acute events overnight. Review of Systems Review of Systems: Unobtainable due to reduced consciousness Physical Exam Constitutional: + morbidly obese, + altered mental status and + mechanically ventilated Eyes: PERRL ENMT: external ear and nose normal, oropharynx normal Neck: trachea midline, no thyromegaly Respiratory: Auscultation: no crackles, no rales and no wheezes decreased air entry b/l, breathing over vent Cardiovascular: RRR, no murmur, no edema Gastrointestinal (Abdomen): Inspection/Auscultation: abdomen normal to inspection Percussion/Palpation: abdomen soft Skin: no rashes, warm and dry Neurologic: + obtunded Genitourinary: De La Vega present Results & Data Results & Data ([facility]) Vital Signs (Past 12 Hours) Vital Signs Temp Pulse Pulse Resp BP Pulse Ox O2 Del Method 06/14/22 06:30 37.3 C 66 17 92 06/14/22 06:30 109/59 L 06/14/22 06:00 37.4 C 67 14 94 06/14/22 06:00 108/59 L 06/14/22 05:30 37.3 C 63 13 95 06/14/22 05:30 105/63 06/14/22 05:00 37.3 C 61 14 96 06/14/22 05:00 108/61 06/14/22 04:30 37.3 C 62 16 96 06/14/22 04:30 104/57 L 06/14/22 04:00 37.3 C 62 15 96 06/14/22 04:00 104/61 06/14/22 03:30 37.3 C 64 15 95 06/14/22 03:30 103/62 06/14/22 04:00 06/14/22 02:35 67 16 95 06/14/22 03:00 37.3 C 67 16 106/57 L 95 Mechanical Vent 06/14/22 02:45 37.3 C 67 16 103/58 L 95 Mechanical Vent 06/14/22 02:30 37.3 C 68 16 106/62 95 Mechanical Vent 06/14/22 02:15 37.3 C 68 17 100/63 95 Mechanical Vent 06/14/22 02:00 37.3 C 68 17 103/56 L 95 Mechanical Vent 06/14/22 01:30 37.4 C 75 18 110/55 L 95 Mechanical Vent 06/14/22 01:15 37.4 C 77 19 108/58 L 95 Mechanical Vent 06/14/22 01:00 37.5 C 78 19 104/59 L 95 Mechanical Vent 06/14/22 00:45 37.5 C 74 23 116/66 95 Mechanical Vent 06/14/22 00:30 37.5 C 80 18 104/59 L 95 Mechanical Vent 06/14/22 00:15 37.5 C 81 18 105/59 L 95 Mechanical Vent 06/14/22 00:00 37.5 C 85 20 121/60 94 Mechanical Vent 06/13/22 23:30 37.5 C 87 20 117/63 91 Mechanical Vent 06/13/22 23:15 37.5 C 90 19 104/66 91 Mechanical Vent 06/14/22 00:00 06/13/22 23:20 93 H 06/13/22 23:00 37.5 C 92 H 21 90 06/13/22 23:00 108/62 06/13/22 22:45 37.5 C 93 H 23 91 06/13/22 22:45 110/58 L 06/13/22 22:30 37.5 C 78 19 94 06/13/22 22:30 104/48 L 06/13/22 22:15 109/57 L 06/13/22 22:15 37.6 C H 70 18 94 06/13/22 22:00 37.6 C H 65 17 94 06/13/22 22:00 109/57 L 06/13/22 21:45 37.7 C H 65 17 94 06/13/22 21:45 106/55 L 06/13/22 21:30 37.7 C H 65 17 94 06/13/22 21:30 106/59 L 06/13/22 21:19 105/59 L 06/13/22 21:19 37.7 C H 66 18 94 06/13/22 22:43 93 H 19 93 06/13/22 22:43 73 19 94 Mechanical Vent 06/13/22 20:00 Mechanical Vent 06/13/22 21:00 37.7 C H 68 19 94 06/13/22 20:30 37.8 C H 69 19 93 06/13/22 20:13 68 20 93 06/13/22 20:13 97/59 L 06/13/22 20:01 72 21 94 06/13/22 20:00 06/13/22 20:08 69 20 93 FiO2 06/14/22 06:30 06/14/22 06:30 06/14/22 06:00 06/14/22 06:00 06/14/22 05:30 06/14/22 05:30 06/14/22 05:00 06/14/22 05:00 06/14/22 04:30 06/14/22 04:30 06/14/22 04:00 06/14/22 04:00 06/14/22 03:30 06/14/22 03:30 06/14/22 04:00 30 06/14/22 02:35 30 06/14/22 03:00 30 06/14/22 02:45 06/14/22 02:30 06/14/22 02:15 06/14/22 02:00 06/14/22 01:30 06/14/22 01:15 06/14/22 01:00 06/14/22 00:45 06/14/22 00:30 06/14/22 00:15 06/14/22 00:00 06/13/22 23:30 06/13/22 23:15 06/14/22 00:00 06/13/22 23:20 06/13/22 23:00 06/13/22 23:00 06/13/22 22:45 06/13/22 22:45 06/13/22 22:30 06/13/22 22:30 06/13/22 22:15 06/13/22 22:15 06/13/22 22:00 06/13/22 22:00 06/13/22 21:45 06/13/22 21:45 06/13/22 21:30 06/13/22 21:30 06/13/22 21:19 06/13/22 21:19 06/13/22 22:43 06/13/22 22:43 30 06/13/22 20:00 30 06/13/22 21:00 06/13/22 20:30 06/13/22 20:13 06/13/22 20:13 06/13/22 20:01 06/13/22 20:00 06/13/22 20:08 30 Laboratory Results 06/14/22 06/14/22 06/14/22 Range/Units 07:44 03:35 03:30 WBC (4.8-10.8) K/ul RBC (4.63-6.08) M/uL Hgb (14.0-18.0) g/dl Hct (40.1-51.0) % MCV (80.0-100.0) fL MCH (25.0-34.0) pg MCHC (32.0-36.0) g/dL RDW Std Deviation (36.4-46.3) fL RDW Coeff of Rob (11.5-14.5) % Plt Count (130-400) K/uL MPV (9.4-12.4) fL Immature Gran % (Auto) % Neut % (Auto) % Lymph % (Auto) % [place] % (Auto) % Eos % (Auto) % Baso % (Auto) % Neut # (Auto) (1.4-6.5) K/uL Lymph # (Auto) (1.2-3.4) K/uL [place] # (Auto) (0.24-0.82) K/uL Eos # (Auto) (0-0.50) K/uL Baso # (Auto) (0-0.2) K/uL Immature Gran # (Auto) (0.00-0.02) K/uL Sodium (136-145) mmol/L Potassium (3.5-5.1) mmol/L Chloride (98-107) mmol/L Carbon Dioxide (21-32) mmol/L Anion Gap (3-11) BUN (6-23) mg/dl Creatinine (0.6-1.4) mg/dl Est Cr Clr Drug Dosing ml/min Est GFR ( Amer) ml/min Est GFR (Non-Af Amer) ml/min BUN/Creatinine Ratio (10-20) Glucose (70-99(Fasting)) mg/dl POC Glucose 110 H 121 H (70-99) mg/dl Estimat Average Glucose mg/dl Hemoglobin A1c (4.5-5.6) % Calcium (8.5-10.1) mg/dl Phosphorus (2.5-4.9) mg/dl Magnesium (1.7-2.4) mg/dl Total Bilirubin (0.2-1.0) mg/dl Direct Bilirubin AST (13-39) U/L ALT (7-52) U/L Alkaline Phosphatase (34-104) U/L Total Protein (6.0-8.3) gm/dl Albumin (3.4-5.0) gm/dl Vancomycin Trough 5.8 L (10-20) mcg/ml 06/14/22 06/14/22 06/13/22 Range/Units 03:30 03:30 Unknown WBC 17.22 H (4.8-10.8) K/ul RBC 3.77 L (4.63-6.08) M/uL Hgb 11.7 L (14.0-18.0) g/dl Hct 34.4 L (40.1-51.0) % MCV 91.2 (80.0-100.0) fL MCH 31.0 (25.0-34.0) pg MCHC 34.0 (32.0-36.0) g/dL RDW Std Deviation 44.9 (36.4-46.3) fL RDW Coeff of Rob 13.3 (11.5-14.5) % Plt Count 177 (130-400) K/uL MPV 9.6 (9.4-12.4) fL Immature Gran % (Auto) 0.6 % Neut % (Auto) 82.9 % Lymph % (Auto) 8.7 % [place] % (Auto) 7.7 % Eos % (Auto) 0.0 % Baso % (Auto) 0.1 % Neut # (Auto) 14.28 H (1.4-6.5) K/uL Lymph # (Auto) 1.49 (1.2-3.4) K/uL [place] # (Auto) 1.32 H (0.24-0.82) K/uL Eos # (Auto) 0.00 (0-0.50) K/uL Baso # (Auto) 0.02 (0-0.2) K/uL Immature Gran # (Auto) 0.11 H (0.00-0.02) K/uL Sodium 138 (136-145) mmol/L Potassium 4.4 (3.5-5.1) mmol/L Chloride 108 H (98-107) mmol/L Carbon Dioxide 29 (21-32) mmol/L Anion Gap 1 L (3-11) BUN 18 (6-23) mg/dl Creatinine 0.77 (0.6-1.4) mg/dl Est Cr Clr Drug Dosing 148.0 ml/min Est GFR ( Amer) 121.8 ml/min Est GFR (Non-Af Amer) 105.1 ml/min BUN/Creatinine Ratio 23.4 H (10-20) Glucose 120 H (70-99(Fasting)) mg/dl POC Glucose (70-99) mg/dl Estimat Average Glucose 126 mg/dl Hemoglobin A1c 6.0 H (4.5-5.6) % Calcium 7.8 L (8.5-10.1) mg/dl Phosphorus 3.0 (2.5-4.9) mg/dl Magnesium 2.5 H (1.7-2.4) mg/dl Total Bilirubin 0.5 (0.2-1.0) mg/dl Direct Bilirubin TNP AST 25 (13-39) U/L ALT 21 (7-52) U/L Alkaline Phosphatase 27 L (34-104) U/L Total Protein 6.0 (6.0-8.3) gm/dl Albumin 3.2 L (3.4-5.0) gm/dl Vancomycin Trough (10-20) mcg/ml 06/13/22 06/13/22 06/13/22 Range/Units 23:53 20:34 15:29 WBC (4.8-10.8) K/ul RBC (4.63-6.08) M/uL Hgb (14.0-18.0) g/dl Hct (40.1-51.0) % MCV (80.0-100.0) fL MCH (25.0-34.0) pg MCHC (32.0-36.0) g/dL RDW Std Deviation (36.4-46.3) fL RDW Coeff of Rob (11.5-14.5) % Plt Count (130-400) K/uL MPV (9.4-12.4) fL Immature Gran % (Auto) % Neut % (Auto) % Lymph % (Auto) % [place] % (Auto) % Eos % (Auto) % Baso % (Auto) % Neut # (Auto) (1.4-6.5) K/uL Lymph # (Auto) (1.2-3.4) K/uL [place] # (Auto) (0.24-0.82) K/uL Eos # (Auto) (0-0.50) K/uL Baso # (Auto) (0-0.2) K/uL Immature Gran # (Auto) (0.00-0.02) K/uL Sodium (136-145) mmol/L Potassium (3.5-5.1) mmol/L Chloride (98-107) mmol/L Carbon Dioxide (21-32) mmol/L Anion Gap (3-11) BUN (6-23) mg/dl Creatinine (0.6-1.4) mg/dl Est Cr Clr Drug Dosing ml/min Est GFR ( Amer) ml/min Est GFR (Non-Af Amer) ml/min BUN/Creatinine Ratio (10-20) Glucose (70-99(Fasting)) mg/dl POC Glucose 137 H 124 H 121 H (70-99) mg/dl Estimat Average Glucose mg/dl Hemoglobin A1c (4.5-5.6) % Calcium (8.5-10.1) mg/dl Phosphorus (2.5-4.9) mg/dl Magnesium (1.7-2.4) mg/dl Total Bilirubin (0.2-1.0) mg/dl Direct Bilirubin AST (13-39) U/L ALT (7-52) U/L Alkaline Phosphatase (34-104) U/L Total Protein (6.0-8.3) gm/dl Albumin (3.4-5.0) gm/dl Vancomycin Trough (10-20) mcg/ml 06/13/22 Range/Units 12:50 WBC (4.8-10.8) K/ul RBC (4.63-6.08) M/uL Hgb (14.0-18.0) g/dl Hct (40.1-51.0) % MCV (80.0-100.0) fL MCH (25.0-34.0) pg MCHC (32.0-36.0) g/dL RDW Std Deviation (36.4-46.3) fL RDW Coeff of Rob (11.5-14.5) % Plt Count (130-400) K/uL MPV (9.4-12.4) fL Immature Gran % (Auto) % Neut % (Auto) % Lymph % (Auto) % [place] % (Auto) % Eos % (Auto) % Baso % (Auto) % Neut # (Auto) (1.4-6.5) K/uL Lymph # (Auto) (1.2-3.4) K/uL [place] # (Auto) (0.24-0.82) K/uL Eos # (Auto) (0-0.50) K/uL Baso # (Auto) (0-0.2) K/uL Immature Gran # (Auto) (0.00-0.02) K/uL Sodium (136-145) mmol/L Potassium (3.5-5.1) mmol/L Chloride (98-107) mmol/L Carbon Dioxide (21-32) mmol/L Anion Gap (3-11) BUN (6-23) mg/dl Creatinine (0.6-1.4) mg/dl Est Cr Clr Drug Dosing ml/min Est GFR ( Amer) ml/min Est GFR (Non-Af Amer) ml/min BUN/Creatinine Ratio (10-20) Glucose (70-99(Fasting)) mg/dl POC Glucose 128 H (70-99) mg/dl Estimat Average Glucose mg/dl Hemoglobin A1c (4.5-5.6) % Calcium (8.5-10.1) mg/dl Phosphorus (2.5-4.9) mg/dl Magnesium (1.7-2.4) mg/dl Total Bilirubin (0.2-1.0) mg/dl Direct Bilirubin AST (13-39) U/L ALT (7-52) U/L Alkaline Phosphatase (34-104) U/L Total Protein (6.0-8.3) gm/dl Albumin (3.4-5.0) gm/dl Vancomycin Trough (10-20) mcg/ml Medications Administered Current Inpatient Medications Acetaminophen (Acetaminophen 1000 Mg/100 Ml Iv) 1,000 mg IV Q8 PRN PRN Reason: Temp > 38 C Stop: 06/15/22 16:42 Last Admin: 06/14/22 00:00 Dose: 1,000 mg Albuterol (Albut/Ipratrop 3mg/0.5mg Neb 3 Ml Vial) 3 ml NEB Q8R REZA; Protocol Stop: 07/12/22 22:59 Last Admin: 06/14/22 07:41 Dose: 3 ml Dextrose (Dextrose 50% 50 Ml Syringe) 25 - 50 ml IV UD PRN; Protocol PRN Reason: Hypoglycemia Protocol Stop: 07/12/22 22:59 Fentanyl Citrate (Fentanyl Bolus From Bag) 50 mcg IV Q60M PRN PRN Reason: Pain or Agitation Stop: 06/26/22 16:44 Last Admin: 06/13/22 18:06 Dose: 50 mcg Glucagon (Glucagon For Inj 1 Mg Vial) 1 mg IM UD PRN; Protocol PRN Reason: Hypoglycemia Protocol Stop: 07/12/22 22:59 Glucose (Glucose 40% Gel 15 Gm Tube) 15 - 30 gm PO UD PRN; Protocol PRN Reason: Hypoglycemia Protocol Stop: 07/12/22 22:59 Glucose (Glucose 10 Tab/Tube) 4 - 8 tab PO UD PRN; Protocol PRN Reason: Hypoglycemia Protocol Stop: 07/12/22 22:59 Heparin Sodium (Porcine) (Heparin Sod 5,000 Unit/0.5 Ml Vial) 5,000 units SQ Q8 REZA Stop: 07/12/22 21:59 Last Admin: 06/14/22 05:24 Dose: 5,000 units Propofol (Diprivan) 1,000 mg in 100 mls @ 29.16 mls/hr IV .Q3H26M REZA; Protocol Stop: 06/15/22 14:59 Last Admin: 06/14/22 08:51 Dose: Not Given Fentanyl Citrate (Fentanyl Citrate) 2,500 mcg in 250 mls @ 12.5 mls/hr IV .Q20H REZA; Protocol Stop: 06/26/22 14:59 Last Admin: 06/14/22 07:38 Dose: Not Given Ceftriaxone Sodium 2,000 mg/ (Dextrose) 70 mls @ 100 mls/hr IV Q12H [facility]; Protocol Stop: 06/15/22 03:59 Last Infusion: 06/14/22 04:25 Dose: Infused Pantoprazole Sodium 40 mg/ (Syringe) 10 mls @ 5 mls/min IV DAILY [facility] Stop: 07/12/22 18:14 Last Admin: 06/14/22 08:06 Dose: 5 mls/min Acyclovir Sodium 920 mg/ (Dextrose) 268.4 mls @ 250 mls/hr IV Q8H [facility] Stop: 06/23/22 00:59 Last Infusion: 06/14/22 06:34 Dose: Infused Ampicillin Sodium 2,000 mg/ (Sodium Chloride) 100 mls @ 200 mls/hr IV Q4H REZA Stop: 06/22/22 21:59 Last Infusion: 06/14/22 06:01 Dose: Infused Vancomycin HCl 1,250 mg/ (Sodium Chloride) 275 mls @ 200 mls/hr IV Q8H [facility] Stop: 06/23/22 11:59 Methylprednisolone 40 mg/ (Syringe) 0.64 mls @ 1.5 mls/min IV DAILY [facility] Stop: 07/15/22 08:59 Insulin Aspart (Insulin Aspart Per Unit) 0 units SC Q4 REZA Stop: 07/12/22 22:59 Last Admin: 06/14/22 08:05 Dose: Not Given Miscellaneous (Carbohydrates For Hypoglycemia ) 15 - 30 gm PO UD PRN PRN Reason: Hypoglycemia Treatment Stop: 07/12/22 22:59 Miscellaneous Information (Vancomycin Consult Active) 1 each N/A UD PRN PRN Reason: Consult Stop: 07/12/22 14:46 Miscellaneous Information (Pharmacy Glycemic Mgmt Consult) 1 each N/A UD PRN; Protocol PRN Reason: Consult Stop: 07/12/22 22:56 Nutritional Formula (Peptamen Intense Vhp 1.0 Iban 1,000 Ml Bag) 1,000 ml OG UD REZA; Protocol Stop: 07/13/22 11:29 Last Admin: 06/13/22 16:22 Dose: 1,000 ml Propofol (Propofol Bolus From Bag) 20 mg IV Q5M PRN PRN Reason: Sedation Stop: 06/15/22 16:44 Last Admin: 06/13/22 18:06 Dose: 20 mg Sterile Water (Tube Feeding Water Flush) 175 ml OG Q4H REZA Stop: 07/13/22 11:14 Last Admin: 06/14/22 08:06 Dose: 175 ml Resident Activity Tracking Resident Involvement: Resident Care Provided Care Provided: Adult Hospital Medicine
[2022-06-14] MEDS: PANTOprazole 40 MG in SYRINGE 0 ML IV SCH (08:06)
[2022-06-14] MEDS ORDERED: FUROSEMIDE INJ 20 MG/2 ML VIAL IV ONE (08:15)
--- NOTE | 2022-06-14 09:06 | XRay Report ---
XR chest 1V portable HISTORY: Respiratory failure. while intubated, check line placments/lung wilson COMPARISON: Chest 06/13/2022. FINDINGS: Endotracheal tube terminates approximately 1.4 cm from the lissa. Nasogastric tube termina mireya below the diaphragm. The tip is not included on this study. Right shoulder fractures are better a ppreciated on the prior CT examination. No pneumothorax. No pleural effusions. And a few bibasilar li near densities.. The heart remains enlarged. There is mild central pulmonary vascular congestion with out overt edema. IMPRESSION: 1. Endotracheal tube terminates 1.4 cm from the lissa. This could be pulled back by approximately 1 to 2 cm. 2. Low lung volumes with bibasilar linear densities suggesting subsegmental atelectasis. 3. Nasogastric tube terminates below the diaphragm. 4. Mild central pulmonary vascular congestion without overt edema. 5. Right shoulder fractures are better appreciated on the prior CT examination. ACT 112: Negative or not required by law. Electronically signed by: Oscar Vaughn M.D. 06/14/2022 9:05 AM
--- NOTE | 2022-06-14 09:55 | Orthopedic Progress Note ---
Date of Service June 14, 2022 Assessment & Plan (1) Dislocation of right shoulder joint: Plan: Fracture dislocation with unstable fracture pattern right shoulder. Definitive treatment is going to require an open reduction internal fixation of greater tuberosity fracture and repair of any rotator cuff tear associated with the injury and an open bony Bankart type repair. Timing of this should be within the next 2 weeks when patient is cleared medically for procedure. Admission and Anticipated Discharge Date Admission Date: June 12, 2022 Results & Data ([facility]) Vital Signs (Past 12 Hours) Vital Signs Temp Pulse Pulse Resp BP Pulse Ox O2 Del Method 06/14/22 09:00 37.6 C H 90 19 90 06/14/22 09:00 119/69 06/14/22 08:26 114/67 06/14/22 08:26 37.5 C 95 H 20 95 06/14/22 08:00 37.4 C 98 H 26 H 93 06/14/22 08:00 120/73 06/14/22 07:30 116/70 06/14/22 07:30 37.4 C 67 17 93 06/14/22 07:00 37.3 C 71 15 93 06/14/22 07:00 119/75 06/14/22 06:30 37.3 C 66 17 92 06/14/22 06:30 109/59 L 06/14/22 06:00 37.4 C 67 14 94 06/14/22 06:00 108/59 L 06/14/22 05:30 37.3 C 63 13 95 06/14/22 05:30 105/63 06/14/22 05:00 37.3 C 61 14 96 06/14/22 05:00 108/61 06/14/22 04:30 37.3 C 62 16 96 06/14/22 04:30 104/57 L 06/14/22 04:00 37.3 C 62 15 96 06/14/22 04:00 104/61 06/14/22 03:30 37.3 C 64 15 95 06/14/22 03:30 103/62 06/14/22 04:00 06/14/22 02:35 67 16 95 06/14/22 03:00 37.3 C 67 16 106/57 L 95 Mechanical Vent 06/14/22 02:45 37.3 C 67 16 103/58 L 95 Mechanical Vent 06/14/22 02:30 37.3 C 68 16 106/62 95 Mechanical Vent 06/14/22 02:15 37.3 C 68 17 100/63 95 Mechanical Vent 06/14/22 02:00 37.3 C 68 17 103/56 L 95 Mechanical Vent 06/14/22 01:30 37.4 C 75 18 110/55 L 95 Mechanical Vent 06/14/22 01:15 37.4 C 77 19 108/58 L 95 Mechanical Vent 06/14/22 01:00 37.5 C 78 19 104/59 L 95 Mechanical Vent 06/14/22 00:45 37.5 C 74 23 116/66 95 Mechanical Vent 06/14/22 00:30 37.5 C 80 18 104/59 L 95 Mechanical Vent 06/14/22 00:15 37.5 C 81 18 105/59 L 95 Mechanical Vent 06/14/22 00:00 37.5 C 85 20 121/60 94 Mechanical Vent 06/13/22 23:30 37.5 C 87 20 117/63 91 Mechanical Vent 06/13/22 23:15 37.5 C 90 19 104/66 91 Mechanical Vent 06/14/22 00:00 06/13/22 23:20 93 H 06/13/22 23:00 37.5 C 92 H 21 90 06/13/22 23:00 108/62 06/13/22 22:45 37.5 C 93 H 23 91 06/13/22 22:45 110/58 L 06/13/22 22:30 37.5 C 78 19 94 06/13/22 22:30 104/48 L 06/13/22 22:15 109/57 L 06/13/22 22:15 37.6 C H 70 18 94 06/13/22 22:00 37.6 C H 65 17 94 06/13/22 22:00 109/57 L 06/13/22 22:43 93 H 19 93 06/13/22 22:43 73 19 94 Mechanical Vent FiO2 06/14/22 09:00 06/14/22 09:00 06/14/22 08:26 06/14/22 08:26 06/14/22 08:00 06/14/22 08:00 06/14/22 07:30 06/14/22 07:30 06/14/22 07:00 06/14/22 07:00 06/14/22 06:30 06/14/22 06:30 06/14/22 06:00 06/14/22 06:00 06/14/22 05:30 06/14/22 05:30 06/14/22 05:00 06/14/22 05:00 06/14/22 04:30 06/14/22 04:30 06/14/22 04:00 06/14/22 04:00 06/14/22 03:30 06/14/22 03:30 06/14/22 04:00 30 06/14/22 02:35 30 06/14/22 03:00 30 06/14/22 02:45 30 06/14/22 02:30 30 06/14/22 02:15 06/14/22 02:00 06/14/22 01:30 30 06/14/22 01:15 30 06/14/22 01:00 06/14/22 00:45 30 06/14/22 00:30 30 06/14/22 00:15 30 06/14/22 00:00 30 06/13/22 23:30 30 06/13/22 23:15 30 06/14/22 00:00 30 06/13/22 23:20 06/13/22 23:00 06/13/22 23:00 06/13/22 22:45 06/13/22 22:45 06/13/22 22:30 06/13/22 22:30 06/13/22 22:15 06/13/22 22:15 06/13/22 22:00 06/13/22 22:00 06/13/22 22:43 30 06/13/22 22:[address] scan reviewed demonstrates shoulder is normally located however patient has a bony Bankart lesion inferior glenoid with large fragment and has a displaced large greater tuberosity fracture. Does not apparently have a neck fracture.
[2022-06-14] MEDS: ACETAMINOPHEN 1000 MG/100 ML IV IV PRN ×3 (10:28→20:13)
[2022-06-14] MEDS: VANCOMYCIN HCL 1,250 MG in SODIUM CHLORIDE 0.9% 250 ML IV SCH ×2 (10:45→20:40)
--- NOTE | 2022-06-14 12:44 | Pharmacy Report ---
Pharmacy Vanc AUC Short Note - Date of Service June 14, 2022 - Assessment & Plan Assessment * 52 year old M receiving VANCOMYCIN + CEFTRIAXONE + AMPICILLIN + ACYCLOVIR for treatment of meningitis/encephalitis. * Pertinent microbiologic data includes: * CSF fluid: WBC 186, RBC 4000, protein 96.7, Glu 109 * CSF gram stain: many WBC but no organisms ID'd * CSF biofire panel negative * BLCX's: 1/2 growing GPC in clusters. * BLCX biofire: two CoN staph species ID'd: staph lugdunensis and staph epi, no methicillin resistance gene ID'd * anaplasma and babesia smears negative * multiple serologies pending: Lyme bands, e chaffeensis, q fever, rickettsia, typhus, CSF VDRL * Pharmacy is consulted to dose Vancomycin * Today is Day # 2 ABX therapy Plan Vancomycin * AUC/DARIAN is the preferred PK/PD target for vancomycin * AUC guided dosing is effective and associated with decreased risk of nephrotoxicity compared to traditional trough targets * Patient has been receiving 1500mg IV Q 12 hrs. * Trough level obtained prior to 3rd maint dose = 5.8. Will escalate dose to 1250mg IV q 8 hrs in order to achieve target AUC/DARIAN of 400-600 mg/L.hr This new maint dose may be associated with a 8 % risk of nephrotoxicity * Will check trough w/ 4rd dose of new regimen Pharmacy will continue to follow and will adjust dose/frequency as necessary. Thank you.
--- NOTE | 2022-06-14 13:48 | Billing Data ---
Date of Service June 14, 2022 Coding Level of Care Code Critical Care 1st 30-74 mins Time Spent (min) 40
--- NOTE | 2022-06-14 14:33 | Hospitalist Progress Note ---
Date of Service June 14, 2022 Assessment & Plan (1) Altered mental state: Plan: Altered mental status. DDx includes toxic/drug-induced and infectious Patient arrived hospital and altered mental status, was intubated in the emergency department to protect his airways -CT scan of the head was done, we did not show any acute findings -CT C-spine did not show any fracture or dislocation -Chest x-ray did not show any acute pathology -CT abdomen showed evidence of T12/L1 compression fracture but otherwise normal -Toxicology was positive for marijuana, which his daughter corroborates that he takes -Lumbar puncture has been done, cultures pending -Continues to be intubated and ventilated in the ICU - Family is coming from [place] and will be arriving today/tomorrow. DIL #[phone] Ifeanyi will be available if other phone number does not work. Reduce GCS of 9 with clinical decline. Intubated in ER. Patient on propofol drip for sedation Family #[phone]. => Still intubated in ICU. Presently on empiric treatment for meningitis per ICU provider while we await culture data. (2) Endotracheally intubated: Plan: Intubated and ventilated in the ICU Wean as tolerated (3) Hypertension: Plan: BP 132/80 today Continue to monitor (4) Dislocation of right shoulder joint: Plan: Has been reduced However, per Ortho will need definitive ORIF when medically stable (5) Bacteremia: Plan: Growing gram-positive cocci in clusters Full characterization pending. Continue empiric IV antibiotics Plan DVT prophylaxis: SCDs Diet: N.p.o. Disposition: ICU, ETT in place Admission and Anticipated Discharge Date Admission Date: June 12, 2022 Subjective Patient intubated and ventilated and sedated Review of Systems Review of Systems: unable to obtain Physical Exam Physical Exam: Intubated and Ventilated HEENT--PERRL, EOMI, mucous membranes and oropharynx mildly dry Neck--supple. No JVD. No bruits. Thyroid normal, trachea midline, no adenopathy. Heart--normal S1 and S2. No murmurs, rubs or gallops. Lungs--Reduced air entry Abdomen--normal bowel sounds and soft. Mild epigastric and left sided abdominal pain Extremities--no cyanosis or clubbing. No edema. Dermatologic--normal skin turgor, normal color, no abnormal lymph nodes, no rash. Neurologic--cranial nerves II through XII grossly intact. Rheumatologic--normal range of motion. Psychiatric--unable to assess. Results & Data Results & Data ([facility]) Vital Signs (Past 12 Hours) Vital Signs Temp Pulse Resp BP Pulse Ox O2 Del Method FiO2 06/14/22 14:00 99.7 F H 75 15 94 06/14/22 14:00 132/80 06/14/22 13:00 99.7 F H 63 15 93 06/14/22 13:00 109/61 06/14/22 12:00 99.7 F H 66 15 93 06/14/22 12:00 109/58 L 06/14/22 12:00 30 06/14/22 11:10 71 16 93 30 06/14/22 11:00 99.5 F 74 12 92 06/14/22 11:00 119/63 06/14/22 10:00 99.7 F H 78 15 91 06/14/22 10:00 112/61 06/14/22 08:00 Mechanical Vent 06/14/22 08:00 30 06/14/22 08:00 Mechanical Vent 30 06/14/22 07:35 76 18 96 30 06/14/22 09:00 99.7 F H 90 19 90 06/14/22 09:00 119/69 06/14/22 08:26 114/67 06/14/22 08:26 99.5 F 95 H 20 95 06/14/22 08:00 99.3 F 98 H 26 H 93 06/14/22 08:00 120/73 06/14/22 07:30 116/70 06/14/22 07:30 99.3 F 67 17 93 06/14/22 07:00 99.1 F 71 15 93 06/14/22 07:00 119/75 06/14/22 06:30 99.1 F 66 17 92 06/14/22 06:30 109/59 L 06/14/22 06:00 99.3 F 67 14 94 06/14/22 06:00 108/59 L 06/14/22 05:30 99.1 F 63 13 95 06/14/22 05:30 105/63 06/14/22 05:00 99.1 F 61 14 96 06/14/22 05:00 108/61 06/14/22 04:30 99.1 F 62 16 96 06/14/22 04:30 104/57 L 06/14/22 04:00 99.1 F 62 15 96 06/14/22 04:00 104/61 06/14/22 03:30 99.1 F 64 15 95 06/14/22 03:30 103/62 06/14/22 04:00 30 06/14/22 02:35 67 16 95 30 06/14/22 03:00 99.1 F 67 16 106/57 L 95 Mechanical Vent 30 06/14/22 02:45 99.1 F 67 16 103/58 L 95 Mechanical Vent 30 06/14/22 02:30 99.1 F 68 16 106/62 95 Mechanical Vent 30 PG Care Time/CCT Total # of Minutes Spent Total Time Spent with Patient: Total time spent is greater than 50% in coordination of care (as documented) at patient's floor/unit and/or counseling patient: Coding Level of Care Code 06191 Subseq Hosp Care Lvl 2 Diagnoses Altered mental state R41.82 Endotracheally intubated Z97.8 Hypertension I10 Dislocation of right shoulder joint S43.004A Bacteremia R78.81 Time Spent (min) 35
[2022-06-14 20:41] LABS: Marijuana Quant, GCMS Urine 990 ng/mL (<5)
[2022-06-15] MEDS: ALBUT/IPRATROP 3MG/0.5MG NEB 3 ML VIAL NEB SCH ×4 (00:13→22:51)
[2022-06-15] MEDS: propofoL 1,000 MG/100 ML VIAL IV SCH ×5 (00:38→09:30)
[2022-06-15] MEDS: AMPICILLIN 2,000 MG in SODIUM CHLOR 0.9% AD-VAN 100 ML IV SCH ×6 (02:01→21:45)
[2022-06-15] MEDS: TUBE FEEDING WATER FLUSH OG SCH ×3 (02:01→09:31)
[2022-06-15 02:36] LABS: 18KDIGG Band NON-REACTIVE; 23KDIGG Band NON-REACTIVE; 23KDIGM Band NON-REACTIVE; 28KDIGG Band NON-REACTIVE; 30KDIGG Band NON-REACTIVE; 39KDIGG Band NON-REACTIVE; 39KDIGM Band NON-REACTIVE; 41KDIGG Band NON-REACTIVE; 41KDIGM Band NON-REACTIVE; 45KDIGG Band NON-REACTIVE; 58KDIGG Band REACTIVE; 66KDIGG Band NON-REACTIVE; 93KDIGG Band REACTIVE; Lyme Antibodies, WB IgG NEGATIVE (NEGATIVE); Lyme Antibodies, WB IgM NEGATIVE (NEGATIVE)
[2022-06-15] MEDS: VANCOMYCIN HCL 1,250 MG in SODIUM CHLORIDE 0.9% 250 ML IV SCH ×2 (03:49→12:00)
[2022-06-15] MEDS: INSULIN ASPART PER UNIT SC SCH ×5 (03:56→21:34)
[2022-06-15] MEDS ORDERED: fentaNYL citrate 2,500 MCG/250 ML BAG IV SCH (04:30)
[2022-06-15 04:33] LABS: Basophils # (auto) 0.03 K/uL (0-0.2); Basophils % (auto) 0.2 %; Eosinophils # (auto) 0.02 K/uL (0-0.50); Eosinophils % (auto) 0.2 %; Hematocrit (blood only) 34.1 % (40.1-51.0); Hemoglobin 11.5 g/dl (14.0-18.0); Immature Granulocytes # (auto) 0.17 K/uL (0.00-0.02); Immature Granulocytes % (auto) 1.3 %; Lymphocytes # (auto) 1.96 K/uL (1.2-3.4); Lymphocytes % (auto) 15.5 %; Mean Corpuscular Hemoglobin 30.4 pg (25.0-34.0); Mean Corpuscular Hgb Conc 33.7 g/dL (32.0-36.0); Mean Corpuscular Volume 90.2 fL (80.0-100.0); Monocytes # (auto) 1.09 K/uL (0.24-0.82); Monocytes % (auto) 8.6 %; Neutrophils # (auto) 9.41 K/uL (1.4-6.5); Neutrophils % (auto) 74.2 %; Platelet Count 189 K/uL (130-400); RDW Coefficient of Variation 13.4 % (11.5-14.5); RDW Standard Deviation 44.9 fL (36.4-46.3); Red Blood Count 3.78 M/uL (4.63-6.08); White Blood Count 12.68 K/ul (4.8-10.8)
[2022-06-15] MEDS: PEPTAMEN INTENSE VHP 1.0 CAL 1,000 ML BAG OG SCH (05:18)
[2022-06-15] MEDS: ACYCLOVIR SOD IV SCH ×3 (05:19→21:44)
[2022-06-15] MEDS: DEXTROSE 5% IV SCH ×3 (05:19→21:44)
[2022-06-15 05:25] LABS: BUN Creatinine Ratio 28.1 (10-20); Calcium 7.9 mg/dl (8.5-10.1); Creatinine Clr Calc Pharmacy 203.2 ml/min; Est GFR (African American) 137.8 ml/min; Est GFR (Non-African American) 118.9 ml/min; Magnesium 1.8 mg/dl (1.7-2.4); Phosphorus 2.7 mg/dl (2.5-4.9); Potassium 3.4 mmol/L (3.5-5.1)
[2022-06-15] MEDS: HEPARIN SOD 5,000 UNIT/0.5 ML VIAL SQ SCH ×2 (05:34→14:05)
[2022-06-15] MEDS ORDERED: POTASSIUM CHLORIDE 20 MEQ/15 ML UDC PO STA (06:19)
[2022-06-15 06:28] LABS: iSTAT Allen Test Pass; iSTAT Arterial Blood Gas HCO3 30 meg/L (19-24); iSTAT Arterial Blood Gas pCO2 50 mmHg (35-46); iSTAT Arterial Blood Gas pH 7.38 (7.35-7.45); iSTAT Arterial Blood Gas pO2 73 mmHg (80-95); iSTAT Carbon Dioxide 31 mmol/L (24-31); iSTAT FiO2 30 %; iSTAT Site R Radial
[2022-06-15] MEDS: MAGNESIUM SULFATE / D5W 1 GM/100 ML BAG IV SCH ×2 (06:28→09:13)
--- NOTE | 2022-06-15 08:14 | Critical Care Progress Note ---
Date of Service June 15, 2022 Assessment & Plan (1) Endotracheally intubated: Plan: ICU Assessment and Plans Reason Critically Ill: 52yo Male with PMH chest pain HTN brought to ED by EMS found in AMS which progressed to reduced consciousness, admitted to ICU for AMS tachypnea and fever. Neuro - [facility] ICU: Negative Sedation: Propofol, fentanyl Analgesia: PRN fentanyl, IV tylenol RASS -1 AMS -based on chart check, patient arrived altered later became unresponsive -urine drug screen +marijuana, no response to naloxone -ammonia 33, no anion gap -Head CT and cervical spine CT unremarkable -CT Abd/Pelvis: Suboptimal study due to the motion and streak artifact. Acute to subacute mild superior endplate compression fractures at T12 and L1. Hepatic steatosis. No bowel wall thickening or obstruction. Normal appendix. Cardiac - HTN -on admit 173/88 improved with propofol -EKG Normal sinus rhythm. Possible Left atrial enlargement -echo ordered, dificult study given body habitus. Normal EF. Unable to assess valves for endocarditis Respiratory - Intubated --> extubated -CXR: Endotracheal tube is 0.5 cm above lissa and can be withdrawn approximately 2.5 cm for improved positioning. The lungs are clear. -POC pH 7.38, pCO2 50 Wheeze-improved -on methylprednisolone 40mg IV daily -albuterol NEB q8R GI - NPO NG tube in place, receiving nutritional formula UD Protonix 40mg IV Daily RENAL/LYTES - No significant electrolyte derangement. Replace lytes as needed - No concerns at this time. De La Vega present ENDO - No concerns at this time SSI A1c 6 TSH 0.287, free t4 wnl HEME - Stable H&H. Will monitor for any drops in the setting of Heparin gtt ID - Concern for Meningitis -Max temp 39.9, WBC 19.4 downtrending -IV tylenol q8 -lactate procal wnl, normal prolactin -continue Rocephin for possible strep -continue Vancomycin for possible rocephin-resistant strep -continue Acyclovir for possible herpes -continue ampicillin for possible listeria -hold doxycycline for tick borne illness at this time peripheral smear negative tick panel 2+ lyme bands, overall negative lyme -UA neg -CSF culture pending -blood culture pending -CSF WBC 186, glu 109, TP 96.7, biofire neg -Brain MRI: Question subtle leptomeningeal enhancement along the cerebellar cortex. This could be seen with meningitis in the appropriate clinical setting. Bacteremia -serology + staph, staph epidermidis, staph lugdunensis -blood cultures gram + cocci in clusters, blood cultures repeated 06/13, awaiting sensitivities INTEGUMENTARY - skin clean dry intact no rashes noted Anterior dislocation of right shoulder -reduced in ED, confirmed by shoulder XR -ortho consulted, noted fracture, repeat CT when stable, may repair in 2 weeks when stable -right arm in sling LINES/IV ACCESS - PIVs intact. Extubated NG tube present De La Vega present soft restraints removed DVT PROPHYLAXIS - Heparin gtt. Thank you for allowing us to be part of this patient's care. Please refer to Blossom Fletcher's documentation for any further recommendations. (2) Altered mental state: (3) Hypertension: Admission and Anticipated Discharge Date Admission Date: June 12, 2022 Supervising Physician Co-Signing Physician Notes Dr. Jackson was the resident-physician during care of patient. I separately evaluated patient for slater portions of the history and the exam. I was present during the critical portion of medical decision making, and I discussed the case with the resident. I generally agree with the findings and plan except for any additions/exceptions noted. Patient seen and examined at bedside. No acute distress, no adverse events ov ernight. T-max 37.8 He was on pressure support at time of examination Fentanyl and propofol were paused He was answering questions appropriately. Following commands. Denied any headache, no chest pain, no abdominal pain. Constitutional: No acute distress HEENT: PERRLA, positive ETT Respiratory system: Decreased air entry bilaterally, no wheeze, no rhonchi, positive crackles bilateral lower lobes CVS: S1-S2 positive, no murmurs or gallops Abdomen: Soft, nontender, nondistended, positive bowel sounds x4, obese Extremities: +2 pulses bilaterally radialis/ dorsalis pedis, no cyanosis, no edema, right arm in sling Neuro: Intubated and sedated, breathing over the vent, opening his eyes, following commands Psych: Unable to assess G/U: Positive De La Vega --Prophylaxis VTE: Heparin GI: Protonix Lines: Peripheral Diet: Start tube feeds Plan: In/out: +2.1 L, urine output 2600 mL Chest x-ray from today still shows mild vascular congestion. Improved from yesterday. Will give 40 mg of Lasix today. CSF culture is negative to date. Probability of viral meningitis at presentation is still there. Would continue with antibiotics for the time being. We will try to get infectious disease involved to help with duration and de-escalation of antibiotics. Repeat blood culture was negative. Hypokalemia and hypomagnesemia being replaced. Patient's blood pressure is on the higher side. We will start the patient on hydralazine 10 mg every 6 hours PE RN systolic blood pressure greater than 160 Trial of extubation today. VALENTIN keys today I have personally spent 35 minutes of critical care time in the direct management of this patient. This is a life/limb threatening event. This includes time spent evaluating patient, direct bedside care, chart review, placing orders, interpretation of diagnostic studies, discussion with consultants, patient, and/or family members regarding treatment decisions, as well as other required patient management activities. This time is exclusive of all separately billable procedures, and teaching time and separate from and in addition to any other critical care service time. Subjective Patient seen at bedside awake breathing over vent in distress. NG tube feeds stopped, patient extubated placed on CPAP doing well. Soft restraints removed Review of Systems Review of Systems: Unobtainable due to cognitive status Physical Exam Constitutional: + morbidly obese and + altered mental status Eyes: PERRL ENMT: external ear and nose normal, oropharynx normal Neck: trachea midline, no thyromegaly Respiratory: Auscultation: no crackles, no rales and no wheezes Cardiovascular: RRR, no murmur, no edema Gastrointestinal (Abdomen): Inspection/Auscultation: abdomen normal to inspection Percussion/Palpation: abdomen soft Skin: no rashes, warm and dry Results & Data Results & Data ([facility]) Vital Signs (Past 12 Hours) Vital Signs Temp Pulse Pulse Resp BP BP Pulse Ox 06/15/22 07:28 06/15/22 07:12 16 06/15/22 07:35 37.0 C 84 14 126/65 96 06/15/22 07:29 06/15/22 05:00 16 06/15/22 06:00 37.8 C H 60 16 117/57 L 94 06/15/22 05:30 37.9 C H 58 L 15 94 06/15/22 05:00 37.9 C H 61 16 117/62 94 06/15/22 04:45 37.9 C H 61 18 94 06/15/22 04:30 37.8 C H 64 16 93 06/15/22 04:15 37.8 C H 64 17 92 06/15/22 04:00 37.8 C H 66 20 93 06/15/22 04:00 128/74 06/15/22 03:45 37.8 C H 61 17 93 06/15/22 03:30 37.8 C H 64 18 93 06/15/22 03:15 37.8 C H 60 15 94 06/15/22 03:00 37.8 C H 61 15 94 06/15/22 03:00 119/74 06/15/22 02:45 37.8 C H 61 15 94 06/15/22 02:30 37.8 C H 60 15 95 06/15/22 02:15 37.8 C H 60 15 95 06/15/22 02:00 37.8 C H 60 15 94 06/15/22 02:00 110/65 06/15/22 01:45 37.8 C H 60 15 94 06/15/22 01:30 37.8 C H 60 15 94 06/15/22 01:15 37.8 C H 61 17 94 06/15/22 01:00 37.8 C H 60 17 94 06/15/22 01:00 109/64 06/15/22 00:45 37.8 C H 60 16 94 06/15/22 00:30 37.7 C H 58 L 15 94 06/15/22 00:15 37.7 C H 59 L 16 94 06/15/22 00:00 37.7 C H 59 L 16 94 06/15/22 00:00 104/59 L 06/14/22 23:45 37.6 C H 60 15 94 06/14/22 23:30 37.7 C H 63 15 94 06/14/22 23:15 37.7 C H 65 14 93 06/14/22 23:00 37.7 C H 65 14 93 06/14/22 23:00 110/63 06/14/22 22:45 37.8 C H 67 14 93 06/14/22 22:30 37.8 C H 70 16 93 06/14/22 22:15 37.8 C H 70 15 93 06/14/22 22:00 37.9 C H 76 16 94 06/14/22 22:00 131/75 06/14/22 21:45 38.0 C H 72 17 94 06/14/22 21:30 38.0 C H 69 14 94 06/14/22 21:15 38.1 C H 72 14 94 06/15/22 04:00 06/15/22 00:00 06/14/22 23:54 66 16 94 06/14/22 22:00 65 06/14/22 21:00 38.1 C H 73 15 125/69 93 06/14/22 20:52 65 16 94 O2 Del Method FiO2 06/15/22 07:28 30 06/15/22 07:12 30 06/15/22 07:35 Mechanical Vent 30 06/15/22 07:29 Mechanical Vent 30 06/15/22 05:00 30 06/15/22 06:00 Mechanical Vent 30 06/15/22 05:30 Mechanical Vent 30 06/15/22 05:00 Mechanical Vent 30 06/15/22 04:45 06/15/22 04:30 06/15/22 04:15 06/15/22 04:00 06/15/22 04:00 06/15/22 03:45 06/15/22 03:30 06/15/22 03:15 06/15/22 03:00 06/15/22 03:00 06/15/22 02:45 06/15/22 02:30 06/15/22 02:15 06/15/22 02:00 06/15/22 02:00 06/15/22 01:45 06/15/22 01:30 06/15/22 01:15 06/15/22 01:00 06/15/22 01:00 06/15/22 00:45 06/15/22 00:30 06/15/22 00:15 06/15/22 00:00 06/15/22 00:00 06/14/22 23:45 06/14/22 23:30 06/14/22 23:15 06/14/22 23:00 06/14/22 23:00 06/14/22 22:45 06/14/22 22:30 06/14/22 22:15 06/14/22 22:00 06/14/22 22:00 06/14/22 21:45 06/14/22 21:30 06/14/22 21:15 06/15/22 04:00 30 06/15/22 00:00 30 06/14/22 23:54 30 06/14/22 22:00 06/14/22 21:00 Mechanical Vent 30 06/14/22 20:52 30 Laboratory Results 06/15/22 06/15/22 06/15/22 Range/Units 05:54 04:16 04:16 WBC 12.68 H (4.8-10.8) K/ul RBC 3.78 L (4.63-6.08) M/uL Hgb 11.5 L (14.0-18.0) g/dl Hct 34.1 L (40.1-51.0) % MCV 90.2 (80.0-100.0) fL MCH 30.4 (25.0-34.0) pg MCHC 33.7 (32.0-36.0) g/dL RDW Std Deviation 44.9 (36.4-46.3) fL RDW Coeff of Rob 13.4 (11.5-14.5) % Plt Count 189 (130-400) K/uL MPV 10.0 (9.4-12.4) fL Immature Gran % (Auto) 1.3 % Neut % (Auto) 74.2 % Lymph % (Auto) 15.5 % [place] % (Auto) 8.6 % Eos % (Auto) 0.2 % Baso % (Auto) 0.2 % Neut # (Auto) 9.41 H (1.4-6.5) K/uL Lymph # (Auto) 1.96 (1.2-3.4) K/uL [place] # (Auto) 1.09 H (0.24-0.82) K/uL Eos # (Auto) 0.02 (0-0.50) K/uL Baso # (Auto) 0.03 (0-0.2) K/uL Immature Gran # (Auto) 0.17 H (0.00-0.02) K/uL Sample Site R Radial POC pH 7.38 (7.35-7.45) POC pCO2 50 H (35-46) mmHg POC pO2 73 L (80-95) mmHg POC HCO3 30 H (19-24) angelito/L POC Total CO2 31 (24-31) mmol/L POC Base Excess 5.0 H (-9-1.8) angelito/L POC ABG O2 Sat 94.0 (90-95) % Lior Test Pass O2 Delivery Device Ventilator POC O2 Rate 15 POC FiO2 30 % Tidal Volume 450 PEEP 5 Sodium 140 (136-145) mmol/L Potassium 3.4 L D (3.5-5.1) mmol/L Chloride 106 (98-107) mmol/L Carbon Dioxide 30 (21-32) mmol/L Anion Gap 4 (3-11) BUN 16 (6-23) mg/dl Creatinine 0.57 L (0.6-1.4) mg/dl Est Cr Clr Drug Dosing 203.2 ml/min Est GFR ( Amer) 137.8 ml/min Est GFR (Non-Af Amer) 118.9 ml/min BUN/Creatinine Ratio 28.1 H (10-20) Glucose 98 (70-99(Fasting)) mg/dl POC Glucose (70-99) mg/dl Calcium 7.9 L (8.5-10.1) mg/dl Phosphorus 2.7 (2.5-4.9) mg/dl Magnesium 1.8 (1.7-2.4) mg/dl U Marijuana THC Carboxy (<5) ng/mL Drug Screen Comment Lyme IgG (Western Blot) (NEGATIVE) Lyme IgG 18 kDa Band Lyme IgG 23 kDa Band Lyme IgG 28 kDa Band Lyme IgG 30 kDa Band Lyme IgG 39 kDa Band Lyme IgG 41 kDa Band Lyme IgG 45 kDa Band Lyme IgG 58 kDa Band Lyme IgG 66 kDa Band Lyme IgG 93 kDa Band Lyme IgM Ab (WB) (NEGATIVE) Lyme IgM 23 kDa Band Lyme IgM 39 kDa Band Lyme IgM 41 kDa Band 06/15/22 06/14/22 06/14/22 Range/Units 03:54 23:31 20:05 WBC (4.8-10.8) K/ul RBC (4.63-6.08) M/uL Hgb (14.0-18.0) g/dl Hct (40.1-51.0) % MCV (80.0-100.0) fL MCH (25.0-34.0) pg MCHC (32.0-36.0) g/dL RDW Std Deviation (36.4-46.3) fL RDW Coeff of Rob (11.5-14.5) % Plt Count (130-400) K/uL MPV (9.4-12.4) fL Immature Gran % (Auto) % Neut % (Auto) % Lymph % (Auto) % [place] % (Auto) % Eos % (Auto) % Baso % (Auto) % Neut # (Auto) (1.4-6.5) K/uL Lymph # (Auto) (1.2-3.4) K/uL [place] # (Auto) (0.24-0.82) K/uL Eos # (Auto) (0-0.50) K/uL Baso # (Auto) (0-0.2) K/uL Immature Gran # (Auto) (0.00-0.02) K/uL Sample Site POC pH (7.35-7.45) POC pCO2 (35-46) mmHg POC pO2 (80-95) mmHg POC HCO3 (19-24) angelito/L POC Total CO2 (24-31) mmol/L POC Base Excess (-9-1.8) angelito/L POC ABG O2 Sat (90-95) % Lior Test O2 Delivery Device POC O2 Rate POC FiO2 % Tidal Volume PEEP Sodium (136-145) mmol/L Potassium (3.5-5.1) mmol/L Chloride (98-107) mmol/L Carbon Dioxide (21-32) mmol/L Anion Gap (3-11) BUN (6-23) mg/dl Creatinine (0.6-1.4) mg/dl Est Cr Clr Drug Dosing ml/min Est GFR ( Amer) ml/min Est GFR (Non-Af Amer) ml/min BUN/Creatinine Ratio (10-20) Glucose (70-99(Fasting)) mg/dl POC Glucose 88 91 90 (70-99) mg/dl Calcium (8.5-10.1) mg/dl Phosphorus (2.5-4.9) mg/dl Magnesium (1.7-2.4) mg/dl U Marijuana THC Carboxy (<5) ng/mL Drug Screen Comment Lyme IgG (Western Blot) (NEGATIVE) Lyme IgG 18 kDa Band Lyme IgG 23 kDa Band Lyme IgG 28 kDa Band Lyme IgG 30 kDa Band Lyme IgG 39 kDa Band Lyme IgG 41 kDa Band Lyme IgG 45 kDa Band Lyme IgG 58 kDa Band Lyme IgG 66 kDa Band Lyme IgG 93 kDa Band Lyme IgM Ab (WB) (NEGATIVE) Lyme IgM 23 kDa Band Lyme IgM 39 kDa Band Lyme IgM 41 kDa Band 06/14/22 06/14/22 06/12/22 Range/Units 15:42 10:34 Unknown WBC (4.8-10.8) K/ul RBC (4.63-6.08) M/uL Hgb (14.0-18.0) g/dl Hct (40.1-51.0) % MCV (80.0-100.0) fL MCH (25.0-34.0) pg MCHC (32.0-36.0) g/dL RDW Std Deviation (36.4-46.3) fL RDW Coeff of Rob (11.5-14.5) % Plt Count (130-400) K/uL MPV (9.4-12.4) fL Immature Gran % (Auto) % Neut % (Auto) % Lymph % (Auto) % [place] % (Auto) % Eos % (Auto) % Baso % (Auto) % Neut # (Auto) (1.4-6.5) K/uL Lymph # (Auto) (1.2-3.4) K/uL [place] # (Auto) (0.24-0.82) K/uL Eos # (Auto) (0-0.50) K/uL Baso # (Auto) (0-0.2) K/uL Immature Gran # (Auto) (0.00-0.02) K/uL Sample Site POC pH (7.35-7.45) POC pCO2 (35-46) mmHg POC pO2 (80-95) mmHg POC HCO3 (19-24) angelito/L POC Total CO2 (24-31) mmol/L POC Base Excess (-9-1.8) angelito/L POC ABG O2 Sat (90-95) % Lior Test O2 Delivery Device POC O2 Rate POC FiO2 % Tidal Volume PEEP Sodium (136-145) mmol/L Potassium (3.5-5.1) mmol/L Chloride (98-107) mmol/L Carbon Dioxide (21-32) mmol/L Anion Gap (3-11) BUN (6-23) mg/dl Creatinine (0.6-1.4) mg/dl Est Cr Clr Drug Dosing ml/min Est GFR ( Amer) ml/min Est GFR (Non-Af Amer) ml/min BUN/Creatinine Ratio (10-20) Glucose (70-99(Fasting)) mg/dl POC Glucose 110 H 132 H (70-99) mg/dl Calcium (8.5-10.1) mg/dl Phosphorus (2.5-4.9) mg/dl Magnesium (1.7-2.4) mg/dl U Marijuana THC Carboxy 990 H (<5) ng/mL Drug Screen Comment SEE NOTE Lyme IgG (Western Blot) (NEGATIVE) Lyme IgG 18 kDa Band Lyme IgG 23 kDa Band Lyme IgG 28 kDa Band Lyme IgG 30 kDa Band Lyme IgG 39 kDa Band Lyme IgG 41 kDa Band Lyme IgG 45 kDa Band Lyme IgG 58 kDa Band Lyme IgG 66 kDa Band Lyme IgG 93 kDa Band Lyme IgM Ab (WB) (NEGATIVE) Lyme IgM 23 kDa Band Lyme IgM 39 kDa Band Lyme IgM 41 kDa Band 09/20/22 Range/Units 16:36 WBC (4.8-10.8) K/ul RBC (4.63-6.08) M/uL Hgb (14.0-18.0) g/dl Hct (40.1-51.0) % MCV (80.0-100.0) fL MCH (25.0-34.0) pg MCHC (32.0-36.0) g/dL RDW Std Deviation (36.4-46.3) fL RDW Coeff of Rob (11.5-14.5) % Plt Count (130-400) K/uL MPV (9.4-12.4) fL Immature Gran % (Auto) % Neut % (Auto) % Lymph % (Auto) % [place] % (Auto) % Eos % (Auto) % Baso % (Auto) % Neut # (Auto) (1.4-6.5) K/uL Lymph # (Auto) (1.2-3.4) K/uL [place] # (Auto) (0.24-0.82) K/uL Eos # (Auto) (0-0.50) K/uL Baso # (Auto) (0-0.2) K/uL Immature Gran # (Auto) (0.00-0.02) K/uL Sample Site POC pH (7.35-7.45) POC pCO2 (35-46) mmHg POC pO2 (80-95) mmHg POC HCO3 (19-24) angelito/L POC Total CO2 (24-31) mmol/L POC Base Excess (-9-1.8) angelito/L POC ABG O2 Sat (90-95) % Lior Test O2 Delivery Device POC O2 Rate POC FiO2 % Tidal Volume PEEP Sodium (136-145) mmol/L Potassium (3.5-5.1) mmol/L Chloride (98-107) mmol/L Carbon Dioxide (21-32) mmol/L Anion Gap (3-11) BUN (6-23) mg/dl Creatinine (0.6-1.4) mg/dl Est Cr Clr Drug Dosing ml/min Est GFR ( Amer) ml/min Est GFR (Non-Af Amer) ml/min BUN/Creatinine Ratio (10-20) Glucose (70-99(Fasting)) mg/dl POC Glucose (70-99) mg/dl Calcium (8.5-10.1) mg/dl Phosphorus (2.5-4.9) mg/dl Magnesium (1.7-2.4) mg/dl U Marijuana THC Carboxy (<5) ng/mL Drug Screen Comment Lyme IgG (Western Blot) NEGATIVE (NEGATIVE) Lyme IgG 18 kDa Band NON-REACTIVE Lyme IgG 23 kDa Band NON-REACTIVE Lyme IgG 28 kDa Band NON-REACTIVE Lyme IgG 30 kDa Band NON-REACTIVE Lyme IgG 39 kDa Band NON-REACTIVE Lyme IgG 41 kDa Band NON-REACTIVE Lyme IgG 45 kDa Band NON-REACTIVE Lyme IgG 58 kDa Band REACTIVE A Lyme IgG 66 kDa Band NON-REACTIVE Lyme IgG 93 kDa Band REACTIVE A Lyme IgM Ab (WB) NEGATIVE (NEGATIVE) Lyme IgM 23 kDa Band NON-REACTIVE Lyme IgM 39 kDa Band NON-REACTIVE Lyme IgM 41 kDa Band NON-REACTIVE Medications Administered Current Inpatient Medications Acetaminophen (Acetaminophen 1000 Mg/100 Ml Iv) 1,000 mg IV Q8 PRN PRN Reason: Temp > 38 C Stop: 06/15/22 16:42 Last Admin: 06/14/22 20:13 Dose: 1,000 mg Albuterol (Albut/Ipratrop 3mg/0.5mg Neb 3 Ml Vial) 3 ml NEB Q8R REZA; Protocol Stop: 07/12/22 22:59 Last Admin: 06/15/22 06:54 Dose: 3 ml Dextrose (Dextrose 50% 50 Ml Syringe) 25 - 50 ml IV UD PRN; Protocol PRN Reason: Hypoglycemia Protocol Stop: 07/12/22 22:59 Fentanyl Citrate (Fentanyl Bolus From Bag) 50 mcg IV Q60M PRN PRN Reason: Pain or Agitation Stop: 06/26/22 16:44 Last Admin: 06/13/22 18:06 Dose: 50 mcg Glucagon (Glucagon For Inj 1 Mg Vial) 1 mg IM UD PRN; Protocol PRN Reason: Hypoglycemia Protocol Stop: 07/12/22 22:59 Glucose (Glucose 40% Gel 15 Gm Tube) 15 - 30 gm PO UD PRN; Protocol PRN Reason: Hypoglycemia Protocol Stop: 07/12/22 22:59 Glucose (Glucose 10 Tab/Tube) 4 - 8 tab PO UD PRN; Protocol PRN Reason: Hypoglycemia Protocol Stop: 07/12/22 22:59 Heparin Sodium (Porcine) (Heparin Sod 5,000 Unit/0.5 Ml Vial) 5,000 units SQ Q8 REZA Stop: 07/12/22 21:59 Last Admin: 06/15/22 05:34 Dose: 5,000 units Propofol (Diprivan) 1,000 mg in 100 mls @ 29.16 mls/hr IV .Q3H26M [facility]; Protocol Stop: 06/15/22 14:59 Last Admin: 06/15/22 07:05 Dose: 40 mcg/kg/min, 29.2 mls/hr Pantoprazole Sodium 40 mg/ (Syringe) 10 mls @ 5 mls/min IV DAILY REZA Stop: 07/12/22 18:14 Last Admin: 06/14/22 08:06 Dose: 5 mls/min Acyclovir Sodium 920 mg/ (Dextrose) 268.4 mls @ 250 mls/hr IV Q8H [facility] Stop: 06/23/22 00:59 Last Infusion: 06/15/22 06:30 Dose: Infused Ampicillin Sodium 2,000 mg/ (Sodium Chloride) 100 mls @ 200 mls/hr IV Q4H [facility] Stop: 06/22/22 21:59 Last Infusion: 06/15/22 05:53 Dose: Infused Vancomycin HCl 1,250 mg/ (Sodium Chloride) 275 mls @ 200 mls/hr IV Q8H [facility] Stop: 06/23/22 11:59 Last Infusion: 06/15/22 05:32 Dose: Infused Methylprednisolone 40 mg/ (Syringe) 0.64 mls @ 1.5 mls/min IV DAILY [facility] Stop: 07/15/22 08:59 Fentanyl Citrate (Fentanyl Citrate) 2,500 mcg in 250 mls @ 12.5 mls/hr IV .Q20H [facility]; Protocol Stop: 06/29/22 04:29 Last Titration: 06/15/22 07:03 Dose: 125 mcg/hr, 12.5 mls/hr Magnesium Sulfate/Dextrose (Magnesium Sulfate / D5w) 1 gm in 100 mls @ 50 mls/hr IV Q2H [facility] Stop: 06/15/22 10:29 Last Admin: 06/15/22 06:28 Dose: 50 mls/hr Ceftriaxone Sodium 2,000 mg/ (Dextrose) 70 mls @ 140 mls/hr IV Q12H [facility]; Protocol Stop: 06/22/22 23:59 Potassium Chloride (K Derick / Wtr) 10 meq in 100 mls @ 100 mls/hr IV Q1H [facility] Stop: 06/15/22 10:29 Insulin Aspart (Insulin Aspart Per Unit) 0 units SC Q4 [facility] Stop: 07/12/22 22:59 Last Admin: 06/15/22 03:56 Dose: Not Given Miscellaneous (Carbohydrates For Hypoglycemia ) 15 - 30 gm PO UD PRN PRN Reason: Hypoglycemia Treatment Stop: 07/12/22 22:59 Miscellaneous Information (Vancomycin Consult Active) 1 each N/A UD PRN PRN Reason: Consult Stop: 07/12/22 14:46 Miscellaneous Information (Pharmacy Glycemic Mgmt Consult) 1 each N/A UD PRN; Protocol PRN Reason: Consult Stop: 07/12/22 22:56 Nutritional Formula (Peptamen Intense Vhp 1.0 Iban 1,000 Ml Bag) 1,000 ml OG UD [facility]; Protocol Stop: 07/13/22 11:29 Last Admin: 06/15/22 05:18 Dose: 1,000 ml Propofol (Propofol Bolus From Bag) 20 mg IV Q5M PRN PRN Reason: Sedation Stop: 06/15/22 16:44 Last Admin: 06/13/22 18:06 Dose: 20 mg Sterile Water (Tube Feeding Water Flush) 175 ml OG Q4H REZA Stop: 07/13/22 11:14 Last Admin: 06/15/22 02:01 Dose: 175 ml Resident Activity Tracking Resident Involvement: Resident Care Provided Care Provided: Adult [facility]
[2022-06-15] MEDS ORDERED: FUROSEMIDE 40 MG/4 ML VIAL IV ONE (08:16)
[2022-06-15] MEDS: POTASSIUM CHLORIDE / WTR 10 MEQ/100 ML PLCT IV SCH ×2 (09:13→09:53)
[2022-06-15] MEDS: PANTOprazole 40 MG in SYRINGE 0 ML IV SCH (09:15)
[2022-06-15] MEDS: methylPREDNISolone 40 MG in SYRINGE 0 ML IV SCH (09:16)
--- NOTE | 2022-06-15 09:25 | XRay Report ---
XR chest 1V portable HISTORY: Respiratory failure. Follow-up. COMPARISON: Chest 06/14/2022. FINDINGS: Endotracheal tube terminates 2.1 cm from the lissa. Nasogastric tube terminates below the diaphragm. The tip is not included on this study. No pneumothorax. Low lung volumes. The heart remain s enlarged. Mild pulmonary vascular congestion has slightly improved. Bibasilar linear densities renan in unchanged in favor subsegmental atelectasis. Right shoulder fractures are again noted. IMPRESSION: 1. Satisfactory support line placement. 2. Slight improvement in the pulmonary vascular congestion. 3. Right shoulder fractures again noted. ACT 112: Negative or not required by law. Electronically signed by: Oscar Vaughn M.D. 06/15/2022 9:24 AM
[2022-06-15] MEDS: cefTRIAXone SODIUM 2,000 MG in DEXTROSE 5% 50 ML IV SCH ×2 (09:49→20:45)
--- NOTE | 2022-06-15 10:21 | Billing Data ---
Date of Service June 15, 2022 Coding Level of Care Code Critical Care 1st 30-74 mins Time Spent (min) 35
[2022-06-15] MEDS: fentaNYL citrate 2,500 MCG/250 ML BAG IV SCH (10:53)
--- NOTE | 2022-06-15 11:06 | Pharmacy Report ---
Pharmacy Glycemic Short Note 2 - Date of Service June 15, 2022 - Glycemic Short BSG Results (Last 24 hours): 06/14/22 06/14/22 06/14/22 15:42 20:05 23:31 Glucose POC Glucose 110 H 90 91 06/15/22 06/15/22 06/15/22 03:54 04:16 09:09 Glucose 98 POC Glucose 88 100 H OUTPATIENT ANTIDIABETIC REGIMEN: * No home meds reported * a1C = 6% 06/13/22 ASSESSMENT: 06/15 * BSGs well controlled over last 24 hrs with receipt of only 4 units insulin to cover carbs delivered in tube feeds. BSGs have remained 132 or less over last 24 hrs. Patient's stressors appear to be lessening (extubated, continuous tube feeds stopped, steroid dose decreased yesterday). Given patient's recent A1c of 6%, he may not even need prandial insulin. Will continue to hold basal insulin and d/c prandial insulin. Will offer only correctional insulin at this time. 06/13 * Critically ill 52 yo admitted to ICU for altered mental status, possible meningitis/encephalitis, need for mechanical ventilation * No known h/o diabetes however access to PMH limited. No A1c available for review. * Pt is currently receiving IV steroid, abx, and mechanical ventilation likely to continue at this time. Pt remains NPO, no plans for feeds yet. * Lantus 30 units given last night, however will hold off on ordering additional given uncertain PMH and ongoing NPO status * Novolog was started based upon weight and "moderate" stress level - would be reasonable to continue at this time. PLAN FOR INPATIENT GLYCEMIC CONTROL: * Check A1c * Basal insulin * None at this time * Bolus insulin * NovoLog per scale Q 6 hr or ACHS if ordered a diet * Goal Range: Low 110 mg/dL - High 180 mg/dL * Correction Factor: 25 mg/dL/unit * Nutritional / Prandial insulin: hold
[2022-06-15] MEDS: hydrALAZINE HCL 20 MG/ML VIAL IV PRN ×2 (11:28→20:58)
[2022-06-15] MEDS ORDERED: VANCOMYCIN LEVEL ONE (11:30)
[2022-06-15] MEDS ORDERED: Nursing to Pharmacy Communication SCH (11:30)
--- NOTE | 2022-06-15 11:57 | Hospitalist Progress Note ---
Date of Service June 15, 2022 Assessment & Plan (1) Altered mental state: Plan: Now resolved -Patient has been extubated. Awake, alert oriented -Says he is from [facility] [place] -Only complaint is right shoulder pain -Although does not remeber the events leading up to his hospitalization -CT scan of the head was done, we did not show any acute findings -CT C-spine did not show any fracture or dislocation -Chest x-ray did not show any acute pathology -CT abdomen showed evidence of T12/L1 compression fracture but otherwise normal -Toxicology was positive for marijuana, which his daughter corroborates that he takes -Lumbar puncture has been done, cultures pending - Family is coming from [place], DIL #[phone] Ifeanyi will be available if other phone number does not work. Family #[phone]. (2) Endotracheally intubated: Plan: extubated, saturatin well on room air (3) Bacteremia: Plan: Growing gram-positive cocci in clusters Full characterization pending. Continue empiric IV antibiotics (4) Hypertension: Plan: BP 169/107 today will start on clonidine patch Continue to monitor (5) Dislocation of right shoulder joint: Plan: Has been reduced However, per Ortho will need definitive ORIF when medically stable Plan DVT prophylaxis: [facility] Admission and Anticipated Discharge Date Admission Date: June 12, 2022 Subjective patient seen and examined, now extubated, complains of right shoulder pain Review of Systems Review of Systems: All systems reviewed are negative, apart from the ones contained in the history. Physical Exam Physical Exam: Awake, alert, oriented HEENT--PERRL, EOMI, mucous membranes and oropharynx mildly dry Neck--supple. No JVD. No bruits. Thyroid normal, trachea midline, no adenopathy. Heart--normal S1 and S2. No murmurs, rubs or gallops. Lungs--Reduced air entry Abdomen--normal bowel sounds and soft. Mild epigastric and left sided abdominal pain Extremities--no cyanosis or clubbing. No edema. Dermatologic--normal skin turgor, normal color, no abnormal lymph nodes, no rash. Neurologic--cranial nerves II through XII grossly intact. Rheumatologic--normal range of motion. Psychiatric--unable to assess. Results & Data Results & Data ([facility]) Vital Signs (Past 12 Hours) Vital Signs Temp Pulse Pulse Resp BP BP Pulse Ox 06/15/22 11:00 72 20 169/107 H 94 06/15/22 11:38 99.3 F 06/15/22 10:00 63 16 154/100 H 95 06/15/22 09:00 71 24 154/103 H 93 06/15/22 08:01 99.7 F H 79 21 166/85 H 94 06/15/22 08:00 78 06/15/22 07:28 06/15/22 07:12 16 06/15/22 07:35 98.6 F 84 14 126/65 96 06/15/22 07:29 06/15/22 05:00 16 06/15/22 06:00 100.0 F H 60 16 117/57 L 94 06/15/22 05:30 100.2 F H 58 L 15 94 06/15/22 05:00 100.2 F H 61 16 117/62 94 06/15/22 04:45 100.2 F H 61 18 94 06/15/22 04:30 100.0 F H 64 16 93 06/15/22 04:15 100.0 F H 64 17 92 06/15/22 04:00 100.0 F H 66 20 93 06/15/22 04:00 128/74 06/15/22 03:45 100.0 F H 61 17 93 06/15/22 03:30 100.0 F H 64 18 93 06/15/22 03:15 100.0 F H 60 15 94 06/15/22 03:00 100.0 F H 61 15 94 06/15/22 03:00 119/74 06/15/22 02:45 100.0 F H 61 15 94 06/15/22 02:30 100.0 F H 60 15 95 06/15/22 02:15 100.0 F H 60 15 95 06/15/22 02:00 100.0 F H 60 15 94 06/15/22 02:00 110/65 06/15/22 01:45 100.0 F H 60 15 94 06/15/22 01:30 100.0 F H 60 15 94 06/15/22 01:15 100.0 F H 61 17 94 06/15/22 01:00 100.0 F H 60 17 94 06/15/22 01:00 109/64 06/15/22 00:45 100.0 F H 60 16 94 06/15/22 00:30 99.9 F H 58 L 15 94 06/15/22 00:15 99.9 F H 59 L 16 94 06/15/22 00:00 99.9 F H 59 L 16 94 06/15/22 00:00 104/59 L 06/15/22 04:00 06/15/22 00:00 06/14/22 23:54 66 16 94 O2 Del Method O2 Flow Rate FiO2 06/15/22 11:00 06/15/22 11:38 06/15/22 10:00 06/15/22 09:00 06/15/22 08:01 Nasal Cannula 4 06/15/22 08:00 06/15/22 07:28 30 06/15/22 07:12 30 06/15/22 07:35 Mechanical Vent 30 06/15/22 07:29 Mechanical Vent 30 06/15/22 05:00 30 06/15/22 06:00 Mechanical Vent 30 06/15/22 05:30 Mechanical Vent 30 06/15/22 05:00 Mechanical Vent 30 06/15/22 04:45 06/15/22 04:30 06/15/22 04:15 06/15/22 04:00 06/15/22 04:00 06/15/22 03:45 06/15/22 03:30 06/15/22 03:15 06/15/22 03:00 06/15/22 03:00 06/15/22 02:45 06/15/22 02:30 06/15/22 02:15 06/15/22 02:00 06/15/22 02:00 06/15/22 01:45 06/15/22 01:30 06/15/22 01:15 06/15/22 01:00 06/15/22 01:00 06/15/22 00:45 06/15/22 00:30 06/15/22 00:15 06/15/22 00:00 06/15/22 00:00 06/15/22 04:00 30 06/15/22 00:00 30 06/14/22 23:54 30 PG Care Time/CCT Total # of Minutes Spent Total Time Spent with Patient: Total time spent is greater than 50% in coordination of care (as documented) at patient's floor/unit and/or counseling patient: Coding Level of Care Code 56306 Subseq Hosp Care Lvl 2 Diagnoses Altered mental state R41.82 Endotracheally intubated Z97.8 Bacteremia R78.81 Hypertension I10 Dislocation of right shoulder joint S43.004A Time Spent (min) 35
[2022-06-15] MEDS ORDERED: INSULIN ASPART PER UNIT SC SCH (12:00)
[2022-06-15] MEDS: amLODIPine BESYLATE 5 MG TAB PO SCH (12:14)
--- NOTE | 2022-06-15 15:36 | Pharmacy Report ---
Pharmacy Vanc AUC Short Note - Date of Service June 15, 2022 - Assessment & Plan Assessment * 52 year old M receiving VANCOMYCIN + CEFTRIAXONE + AMPICILLIN + ACYCLOVIR for treatment of meningitis/encephalitis. * Pertinent microbiologic data includes: * CSF fluid: WBC 186, RBC 4000, protein 96.7, Glu 109 * CSF gram stain: many WBC but no organisms ID'd * CSF biofire panel negative * BLCX's: 1/2 growing GPC in clusters. * BLCX biofire: two CoN staph species ID'd: staph lugdunensis and staph epi, no methicillin resistance gene ID'd * anaplasma and babesia smears negative * multiple serologies pending: Lyme bands, e chaffeensis, q fever, rickettsia, typhus, CSF VDRL * Pharmacy is consulted to dose Vancomycin * Today is Day # 3 ABX therapy Plan Vancomycin * AUC/DARIAN is the preferred PK/PD target for vancomycin * AUC guided dosing is effective and associated with decreased risk of nephrotoxicity compared to traditional trough targets * Patient has been receiving 1250mg IV Q 8 hrs. * Trough level obtained prior to 4th maint dose = 9.3. Will escalate dose to 1500mg IV q 8 hrs in order to achieve target AUC/DARIAN of 400-600 mg/L.hr This new maint dose may be associated with a 7 % risk of nephrotoxicity * Will check trough w/ 3rd dose of new regimen Pharmacy will continue to follow and will adjust dose/frequency as necessary. Thank you.
[2022-06-15 17:53] LABS: Hemoglobin 13.6 g/dl (14.0-18.0)
[2022-06-15 18:31] LABS: Prothrombin Time 10.3 Seconds (9.0-12.0)
[2022-06-15] MEDS: VANCOMYCIN HCL 1,500 MG in SODIUM CHLORIDE 0.9% 500 ML IV SCH (20:46)
[2022-06-16] MEDS: AMPICILLIN 2,000 MG in SODIUM CHLOR 0.9% AD-VAN 100 ML IV SCH ×6 (01:34→23:25)
[2022-06-16] MEDS ORDERED: fentaNYL citrate 100 MCG/2 ML VIAL IV STA (03:09)
[2022-06-16] MEDS ORDERED: fentaNYL citrate 100 MCG/2 ML VIAL ONE (03:13)
[2022-06-16] MEDS: VANCOMYCIN HCL 1,500 MG in SODIUM CHLORIDE 0.9% 500 ML IV SCH ×2 (04:09→12:20)
[2022-06-16 04:17] LABS: Basophils # (auto) 0.06 K/uL (0-0.2); Basophils % (auto) 0.3 %; Eosinophils # (auto) 0.01 K/uL (0-0.50); Eosinophils % (auto) 0.1 %; Hematocrit (blood only) 36.9 % (40.1-51.0); Hemoglobin 12.7 g/dl (14.0-18.0); Immature Granulocytes # (auto) 0.51 K/uL (0.00-0.02); Immature Granulocytes % (auto) 2.8 %; Lymphocytes # (auto) 2.17 K/uL (1.2-3.4); Lymphocytes % (auto) 11.8 %; Mean Corpuscular Hemoglobin 30.3 pg (25.0-34.0); Mean Corpuscular Hgb Conc 34.4 g/dL (32.0-36.0); Mean Corpuscular Volume 88.1 fL (80.0-100.0); Monocytes # (auto) 1.61 K/uL (0.24-0.82); Monocytes % (auto) 8.8 %; Neutrophils # (auto) 13.99 K/uL (1.4-6.5); Neutrophils % (auto) 76.2 %; Platelet Count 241 K/uL (130-400); RDW Coefficient of Variation 13.1 % (11.5-14.5); Red Blood Count 4.19 M/uL (4.63-6.08); White Blood Count 18.35 K/ul (4.8-10.8)
[2022-06-16] MEDS: hydrALAZINE HCL 20 MG/ML VIAL IV PRN ×2 (04:32→09:31)
[2022-06-16 04:44] LABS: BUN Creatinine Ratio 27.9 (10-20); Calcium 8.4 mg/dl (8.5-10.1); Creatinine Clr Calc Pharmacy 192.1 ml/min; Est GFR (Non-African American) 115.6 ml/min; Phosphorus 2.1 mg/dl (2.5-4.9); Potassium 3.4 mmol/L (3.5-5.1)
[2022-06-16 05:14] LABS: Troponin I High Sensitivity 16.3 pg/ml (0-20)
[2022-06-16] MEDS: DEXTROSE 5% IV SCH ×3 (05:37→23:26)
[2022-06-16] MEDS: ACYCLOVIR SOD IV SCH ×3 (05:37→23:26)
[2022-06-16] MEDS ORDERED: POTASSIUM PHOS 3 MMOL/1 ML INFUSION IV STA (05:59)
[2022-06-16] MEDS ORDERED: LABETALOL HCL IV 5 MG/ML 20ML IV STA ×2 (06:10→12:57)
[2022-06-16] MEDS ORDERED: POTASSIUM PHOSPHATE 30 MMOL in SODIUM CHLORIDE 0.9% 500 ML IV ONE (06:30)
[2022-06-16] MEDS: ALBUT/IPRATROP 3MG/0.5MG NEB 3 ML VIAL NEB SCH ×3 (07:34→22:54)
[2022-06-16] MEDS: INSULIN ASPART PER UNIT SC SCH ×4 (07:51→21:11)
[2022-06-16] MEDS: cefTRIAXone SODIUM 2,000 MG in DEXTROSE 5% 50 ML IV SCH ×2 (08:05→21:14)
[2022-06-16] MEDS: PANTOprazole 40 MG in SYRINGE 0 ML IV SCH (08:11)
[2022-06-16] MEDS: methylPREDNISolone 40 MG in SYRINGE 0 ML IV SCH (08:11)
[2022-06-16] MEDS: amLODIPine BESYLATE 5 MG TAB PO SCH (08:13)
--- NOTE | 2022-06-16 08:44 | Urology Consultation ---
Date of Consultation June 16, 2022 Assessment & Plan (1) Urethral trauma: At this point his bladder is draining well with the De La Vega catheter in place. Due to the high likelihood of urethral trauma with the catheter removed while the balloon was inflated, his current catheter should stay in place for alesia roximately 1 week. We will perform cystoscopy at the time of catheter removal to ensure there is no ongoing urethral trauma/mucosal tearing. This will be coordinated as an outpatient. Recommendations: Maintain current De La Vega catheter Continue antibiotics per primary team Urology will arrange outpatient follow-up We will sign off for now, please call with any questions or concerns. History of Present Illness Reason for Consultation: Traumatic catheter removal Attending Physician: Rodrigo Garcia MD History of Present Illness This is a 52-year-old Egyptian-speaking male who presented to the hospital on 06/12/2022, unconscious with a GCS of 9. He was intubated in the emergency department and admitted to the ICU for management and further work-up. On 06/15/2022 he was becoming more alert. He had been extubated and at one point that day he grasped and removed his De La Vega catheter with the balloon still inflated. Urology was called as he had significant blood per urethra. I recommended the catheter be replaced to tamponade some of the bleeding and make sure that his urine continued to drain. This morning he is doing well, although he is only able to provide limited history. A De La Vega catheter was successfully replaced and is draining clear yellow urine. He denies any pain and he is not having any bleeding around the catheter. Allergies Allergy/AdvReac Type Severity Reaction Status Date / Time No Known Allergies Allergy Unverified 06/13/22 16:58 Home Medications Medication Instructions Recorded Confirmed Type No Known Home Medications 06/12/22 06/12/22 History Patient History Medical History No pertinent family history No pertinent past medical history Surgical History No pertinent past surgical history Social History Smoking Status: Current some day smoker Tobacco Type: Cigarettes and E-cigarettes / Vaping Hx Substance Use: Yes Communication Ability: Effective Communication Tools: IPad, Facial Expression and Physical Gestures Convention Manager Required: Yes marital status: Feels Safe at Home: No Assistive Devices: None Review of Systems Review of Systems: 14 point review of systems negative except for otherwise indicated. Physical Exam Constitutional: well developed and well nourished; no acute distress Eyes: + anicteric sclerae; pupils not irregular Respiratory: normal respiratory effort; no respiratory distress, does not use accessory muscles and no cough Cardiovascular: well perfused Gastrointestinal (Abdomen): Inspection/Auscultation: abdomen normal to inspection; abdomen not distended Musculoskeletal: Extremities: extremities normal to inspection Skin: normal turgor; no rashes and no lesions Neurologic: moves all extremities and awake Psychiatric: Orientation: alert and oriented x 3 Genitourinary: De La Vega catheter in place draining clear yellow urine. There is some dried blood at the urethral meatus but no active bleeding around the catheter. Results & Data ([facility]) Vital Signs (Past 12 Hours) Vital Signs Temp Pulse Pulse Resp BP Pulse Ox O2 Del Method 06/16/22 07:42 77 18 94 Room Air 06/16/22 06:30 89 12 97 06/16/22 06:15 86 14 97 06/16/22 06:03 87 17 97 06/16/22 06:03 193/95 H 06/16/22 06:01 194/112 H 06/16/22 06:01 89 30 H 95 06/16/22 06:00 86 29 H 96 06/16/22 05:45 84 18 96 06/16/22 05:30 85 12 96 06/16/22 05:15 88 24 94 06/16/22 05:00 88 15 95 06/16/22 05:00 150/91 H 06/16/22 04:45 86 38 H 96 06/16/22 04:30 81 20 96 Room Air 06/16/22 04:15 78 23 96 06/16/22 04:01 77 95 06/16/22 04:01 183/99 H 06/16/22 04:00 79 95 06/16/22 03:45 84 96 06/16/22 03:30 84 20 97 06/16/22 03:15 79 31 H 97 06/16/22 03:01 80 35 H 96 06/16/22 03:01 168/104 H 06/16/22 03:00 79 14 98 09/24/22 02:45 83 25 H 95 06/16/22 02:30 77 17 97 06/16/22 02:15 79 32 H 97 06/16/22 04:38 36.7 C 06/16/22 02:03 158/100 H 06/16/22 02:03 78 24 93 06/16/22 02:00 80 23 98 06/16/22 01:45 80 15 97 06/16/22 01:41 78 15 92 06/16/22 01:32 82 29 H 06/16/22 01:30 80 26 H 06/16/22 01:25 79 14 06/16/22 02:06 37.0 C 06/16/22 00:45 95 H 94 06/16/22 00:30 86 17 95 06/16/22 00:15 91 H 20 94 06/16/22 00:03 165/93 H 06/16/22 00:03 87 17 94 06/16/22 00:00 87 94 06/15/22 23:45 92 H 17 94 06/15/22 23:30 92 H 17 95 06/15/22 23:15 86 17 96 06/15/22 23:04 90 23 95 06/15/22 23:01 95 H 22 98 06/15/22 23:00 94 H 14 97 06/16/22 00:00 91 H 06/16/22 00:02 81 16 97 Room Air 06/15/22 22:45 91 H 16 96 06/15/22 22:30 82 17 96 06/15/22 22:15 88 17 95 06/15/22 22:00 90 16 96 06/15/22 22:00 163/95 H 06/15/22 21:45 94 H 96 06/15/22 21:30 91 H 29 H 06/15/22 21:15 92 H 33 H 96 06/15/22 21:04 85 96 06/15/22 21:02 81 95 06/15/22 21:00 84 95 06/15/22 20:55 80 34 H 93 06/15/22 20:55 173/95 H 06/15/22 20:54 79 20 93 06/15/22 20:45 87 29 H 93 06/15/22 23:00 Room Air 09/23/22 22:59 36.8 C PG Care Time/CCT Total # of Minutes Spent Total Time Spent with Patient: Total time spent is greater than 50% in coordination of care (as documented) at patient's floor/unit and/or counseling patient: Coding Level of Care Code 79047 Inpt Consult Level 3 Diagnoses Urethral trauma S37.30XA
--- NOTE | 2022-06-16 08:56 | Critical Care Progress Note ---
Date of Service June 16, 2022 Assessment & Plan (1) Endotracheally intubated: Plan: ICU Assessment and Plans Reason Critically Ill: 52yo Male with PMH chest pain HTN brought to ED by EMS found in AMS which progressed to reduced consciousness, admitted to ICU for AMS tachypnea and fever. Neuro - [facility] ICU: Negative AMS --> resolved -urine drug screen +marijuana, no response to naloxone -ammonia 33, no anion gap -Head CT and cervical spine CT unremarkable -CT Abd/Pelvis: Suboptimal study due to the motion and streak artifact. Acute t o subacute mild superior endplate compression fractures at T12 and L1. Hepatic steatosis. No bowel wall thickening or obstruction. Normal appendix. Cardiac - HTN -EKG Normal sinus rhythm. Possible Left atrial enlargement -echo ordered, dificult study given body habitus. Normal EF. Unable to assess valves for endocarditis -Started the patient on amlodipine and lisinopril Respiratory - Intubated --> extubated 06/15/2022 GI - Cardiac low-sodium diet Protonix 40mg IV Daily RENAL/LYTES - No significant electrolyte derangement. Replace lytes as needed - -- Traumatic removal of De La Vega by the patient on 06/15/2022 Hematuria following back A new catheter was placed in, hematuria has resolved H&H stable ENDO - Continue with ICU hypoglycemia protocol A1c 6 TSH 0.287, free t4 wnl HEME - Stable H&H. Will monitor for any drops in the setting of Heparin gtt ID - Concern for Meningitis -Max temp 39.9, WBC 19.4 downtrending -IV tylenol q8 -lactate procal wnl, normal prolactin -continue Rocephin for possible strep -continue Vancomycin for possible rocephin-resistant strep -continue Acyclovir for possible herpes -continue ampicillin for possible listeria peripheral smear negative tick panel 2+ lyme bands, Lyme Western blot negative overall negative lyme -UA neg -CSF culture negative to date -blood culture growing staph Lugu -CSF WBC 186, glu 109, TP 96.7, biofire neg -Brain MRI: Question subtle leptomeningeal enhancement along the cerebellar cortex. This could be seen with meningitis in the appropriate clinical setting. Bacteremia -serology + staph, staph epidermidis, staph lugdunensis -blood cultures gram + cocci in clusters, blood cultures repeated 06/13 --> negative to date INTEGUMENTARY - skin clean dry intact no rashes noted Anterior dislocation of right shoulder -reduced in ED, confirmed by shoulder XR -ortho consulted, noted fracture, repeat CT when stable, may repair in 2 weeks when stable -right arm in sling --Prophylaxis VTE: Heparin GI: Protonix Lines: Peripheral Diet: Cardiac low-sodium diet Plan: In/out: -4.1 L, urine output 7450 H&H is stable. Urine is clear in the catheter bag. Urology consult has been placed. Will await further recommendation to see when we can discontinue the De La Vega DC Solu-Medrol. CSF cultures negative to date. The possibility of patient having viral meningitis is high given the culture is negative I would like to continue with antibiotics, would recommend to get in touch with infectious disease regarding the duration and de-escalation of antibiotics Lisinopril added to amlodipine given the patient's high blood pressure. I think patient will need more blood pressure medication Potassium and phosphorus are being replaced Patient hemodynamically stable to be downgraded to medical floor Please note the above document was generated using voice recognition software. It may contain grammatical, syntax or spelling errors.Any formal questions or concerns about the content, text or information contained within the body of this dictation should be directly addressed to the provider for clarification. (2) Altered mental state: (3) Hypertension: Admission and Anticipated Discharge Date Admission Date: June 12, 2022 Subjective Patient seen and examined at bedside. No acute distress, no adverse events overnight. Patient did have a De La Vega catheter placed and again after he pulled it out by mistake with the balloon inflated He had hematuria but it has resolved since. Urine seems to be clear in the catheter Denies any chest pain, no shortness of breath, no headache, no blurry vision T-max 37.6 Fair appetite No nausea vomiting Review of Systems Review of Systems: All systems reviewed & are unremarkable except as noted in Subjective Physical Exam 2 Physical Exam: Constitutional: No acute distress HEENT: PERRLA, EOMI Respiratory system: Good air entry bilaterally, no wheeze, rhonchi, mild crackles bilateral lower lobes CVS: S1-S2 positive, no murmurs or gallops Abdomen: Soft, nontender, nondistended, positive bowel sounds x4, obese Extremities: +2 pulses bilaterally radialis/ dorsalis pedis, no cyanosis, no edema,right arm in sling Neuro: Awake alert oriented to self, place and time. Psych:Normal mood and affect G/U: Positive De La Vega Skin: no rashes, warm and dry Lymphatic: no cervical or axillary lymphadenopathy Results & Data Results & Data ([facility] [place]) Vital Signs (Past 12 Hours) Vital Signs Temp Pulse Pulse Resp BP Pulse Ox O2 Del Method 06/16/22 07:42 77 18 94 Room Air 06/16/22 06:30 89 12 97 06/16/22 06:15 86 14 97 06/16/22 06:03 87 17 97 06/16/22 06:03 193/95 H 06/16/22 06:01 194/112 H 06/16/22 06:01 89 30 H 95 06/16/22 06:00 86 29 H 96 06/16/22 05:45 84 18 96 06/16/22 05:30 85 12 96 06/16/22 05:15 88 24 94 06/16/22 05:00 88 15 95 06/16/22 05:00 150/91 H 06/16/22 04:45 86 38 H 96 06/16/22 04:30 81 20 96 Room Air 06/16/22 04:15 78 23 96 06/16/22 04:01 77 95 06/16/22 04:01 183/99 H 06/16/22 04:00 79 95 06/16/22 03:45 84 96 06/16/22 03:30 84 20 97 06/16/22 03:15 79 31 H 97 06/16/22 03:01 80 35 H 96 06/16/22 03:01 168/104 H 06/16/22 03:00 79 14 98 06/16/22 02:45 83 25 H 95 06/16/22 02:30 77 17 97 06/16/22 02:15 79 32 H 97 06/16/22 04:38 36.7 C 06/16/22 02:03 158/100 H 06/16/22 02:03 78 24 93 06/16/22 02:00 80 23 98 06/16/22 01:45 80 15 97 06/16/22 01:41 78 15 92 06/16/22 01:32 82 29 H 06/16/22 01:30 80 26 H 06/16/22 01:25 79 14 06/16/22 02:06 37.0 C 06/16/22 00:45 95 H 94 06/16/22 00:30 86 17 95 06/16/22 00:15 91 H 20 94 06/16/22 00:03 165/93 H 06/16/22 00:03 87 17 94 06/16/22 00:00 87 94 06/15/22 23:45 92 H 17 94 06/15/22 23:30 92 H 17 95 06/15/22 23:15 86 17 96 06/15/22 23:04 90 23 95 06/15/22 23:01 95 H 22 98 06/15/22 23:00 94 H 14 97 06/16/22 00:00 91 H 06/16/22 00:02 81 16 97 Room Air 06/15/22 22:45 91 H 16 96 06/15/22 22:30 82 17 96 06/15/22 22:15 88 17 95 06/15/22 22:00 90 16 96 06/15/22 22:00 163/95 H 06/15/22 21:45 94 H 96 06/15/22 21:30 91 H 29 H 06/15/22 21:15 92 H 33 H 96 06/15/22 21:04 85 96 06/15/22 21:02 81 95 06/15/22 21:00 84 95 06/15/22 20:55 80 34 H 93 06/15/22 20:55 173/95 H 06/15/22 20:54 79 20 93 06/15/22 23:00 Room Air 06/15/22 22:59 36.8 C Laboratory Results 06/16/22 03:44 06/16/22 03:44 Coding Level of Care Code 83584 Subs Hosp Care Lvl 3 Diagnoses Endotracheally intubated Z97.8 Altered mental state R41.82 Hypertension I10
[2022-06-16] MEDS ORDERED: lisinopril 20 MG TAB PO SCH (09:00)
[2022-06-16] MEDS ORDERED: STAT IV Infusion **Titration per Protocol STA (10:10)
[2022-06-16] MEDS ORDERED: lisinopril 20 MG TAB PO STA (10:12)
[2022-06-16] MEDS: niCARdipine 25 MG in SODIUM CHLORIDE 0.9% 240 ML IV SCH ×7 (10:35→22:21)
[2022-06-16] MEDS ORDERED: VANCOMYCIN LEVEL ONE (11:00)
[2022-06-16] MEDS: ACETAMINOPHEN 325 MG TAB PO PRN ×2 (11:43→21:12)
[2022-06-16] MEDS ORDERED: MIDAZOLAM HCL 1 MG/ML 2ML VIAL IM STA (11:54)
[2022-06-16] MEDS ORDERED: MIDAZOLAM HCL 1 MG/ML 2ML VIAL ONE (12:04)
--- NOTE | 2022-06-16 12:40 | Pharmacy Report ---
Pharmacy PK ABX Note - Date of Service June 16, 2022 - Assessment and Plan Assessment * 52 year old M receiving VANCOMYCIN + CEFTRIAXONE + AMPICILLIN + ACYCLOVIR for treatment of meningitis/encephalitis. * Pertinent microbiologic data includes: * CSF fluid: WBC 186, RBC 4000, protein 96.7, Glu 109 * CSF gram stain: many WBC but no organisms ID'd * CSF biofire panel negative * BLCX's: 1/2 growing GPC in clusters. * BLCX biofire: two CoN staph species ID'd: staph lugdunensis and staph epi, no methicillin resistance gene ID'd * anaplasma and babesia smears negative * multiple serologies pending: Lyme bands, e chaffeensis, q fever, rickettsia, typhus, CSF VDRL * Pharmacy is consulted to dose Vancomycin * Today is Day #5 ABX therapy Plan Vancomycin * Current regimen: 1500 mg IV every 8 hours * Trough level obtained 06/16/22 resulted as 9.7 mcg/mL. This is subtherapeutic. * Change to 1750 mg IV every 8 hours. Predicted AUC and trough at steady state: 530 mg/L.hr and 13.6 mcg/mL, respectively. * Repeat trough level ordered for: 06/17/22 Pharmacy will continue to follow and will adjust dose/frequency as necessary. Thank you. Pharmacy has transitioned to AUC monitoring for vancomycin. AUC/DARIAN is the preferred PK/PD target and is associated with decreased risk of nephrotoxicity compared to traditional trough targets.
--- NOTE | 2022-06-16 12:45 | Hospitalist Progress Note ---
Date of Service June 16, 2022 Assessment & Plan (1) Altered mental state: Plan: Now resolved -Patient has been extubated. Awake, alert oriented -Says he is from [facility] -Only complaint is right shoulder pain -Although does not remeber the events leading up to his hospitalization -CT scan of the head was done, we did not show any acute findings -CT C-spine did not show any fracture or dislocation -Chest x-ray did not show any acute pathology -CT abdomen showed evidence of T12/L1 compression fracture but otherwise normal -Toxicology was positive for marijuana, which his daughter corroborates that he takes -Lumbar puncture has been done, cultures pending - Family is coming from [place], DIL #[phone] Ifeanyi will be available if other phone number does not work. Family #[phone]. (2) Bacteremia: Plan: Source is unknown Initially on Vancomycin, has been discontinued Growing gram-positive cocci in clusters, pansensitive Continue Ampicillin, Ceftriaxone 2 D ECHO did not suggest any vegetations on the valves Consult ID (3) Meningitis: Plan: suspected meningitis MRI brain showed some questionable enhancement Initially started on broad spectrum anti biotics CSF cultures did not suggest bacterial meningitis, the rest of CSF studies pending Continue Ampicillin, Ceftriaxone and Acyclovir Consult ID (4) Hypertension: Plan: poorly controlled has been started on cardizem infusion Continue Lisinopril, will add clonidine (5) Dislocation of right shoulder joint: Plan: Has been reduced However, per Ortho will need definitive ORIF when medically stable (6) Endotracheally intubated: Plan: extubated, saturatin well on room air Plan DVT prophylaxis: SCDs Admission and Anticipated Discharge Date Admission Date: June 12, 2022 Subjective patient seen and examined, now awake and alert, still complaining of right shoulder pain Review of Systems Review of Systems: All systems reviewed are negative, apart from the ones contained in the history. Physical Exam Physical Exam: Awake, alert, oriented HEENT--PERRL, EOMI, mucous membranes and oropharynx mildly dry Neck--supple. No JVD. No bruits. Thyroid normal, trachea midline, no adenopathy. Heart--normal S1 and S2. No murmurs, rubs or gallops. Lungs--Reduced air entry Abdomen--normal bowel sounds and soft. Mild epigastric and left sided abdominal pain Extremities--no cyanosis or clubbing. No edema. Dermatologic--normal skin turgor, normal color, no abnormal lymph nodes, no rash. Neurologic--cranial nerves II through XII grossly intact. Rheumatologic--normal range of motion. Psychiatric--unable to assess. Results & Data Results & Data ([facility]) Vital Signs (Past 12 Hours) Vital Signs Temp Pulse Pulse Resp BP Pulse Ox O2 Del Method 06/16/22 11:01 91 H 26 H 206/104 H 95 06/16/22 10:46 86 212/108 H 06/16/22 10:01 90 18 217/100 H 06/16/22 09:00 79 22 193/103 H 93 06/16/22 08:01 81 26 H 173/105 H 91 06/16/22 07:01 79 24 150/92 H 94 06/16/22 07:42 77 18 94 Room Air 06/16/22 06:30 89 12 97 06/16/22 06:15 86 14 97 06/16/22 06:03 87 17 97 06/16/22 06:03 193/95 H 06/16/22 06:01 194/112 H 06/16/22 06:01 89 30 H 95 06/16/22 06:00 86 29 H 96 06/16/22 05:45 84 18 96 06/16/22 05:30 85 12 96 06/16/22 05:15 88 24 94 06/16/22 05:00 88 15 95 06/16/22 05:00 150/91 H 06/16/22 04:45 86 38 H 96 06/16/22 04:30 81 20 96 Room Air 06/16/22 04:15 78 23 96 06/16/22 04:01 77 95 06/16/22 04:01 183/99 H 06/16/22 04:00 79 95 06/16/22 03:45 84 96 06/16/22 03:30 84 20 97 06/16/22 03:15 79 31 H 97 06/16/22 03:01 80 35 H 96 06/16/22 03:01 168/104 H 06/16/22 03:00 79 14 98 06/16/22 02:45 83 25 H 95 06/16/22 02:30 77 17 97 06/16/22 02:15 79 32 H 97 06/16/22 04:38 98.1 F 06/16/22 02:03 158/100 H 06/16/22 02:03 78 24 93 06/16/22 02:00 80 23 98 06/16/22 01:45 80 15 97 06/16/22 01:41 78 15 92 06/16/22 01:32 82 29 H 06/16/22 01:30 80 26 H 06/16/22 01:25 79 14 06/16/22 02:06 98.6 F 06/16/22 00:45 95 H 94 PG Care Time/CCT Total # of Minutes Spent Total Time Spent with Patient: Total time spent is greater than 50% in coordination of care (as documented) at patient's floor/unit and/or counseling patient: Coding Level of Care Code 51946 Subseq Hosp Care Lvl 2 Diagnoses Altered mental state R41.82 Bacteremia R78.81 Meningitis G03.9 Hypertension I10 Dislocation of right shoulder joint S43.004A Endotracheally intubated Z97.8 Time Spent (min) 35
[2022-06-16] MEDS ORDERED: carvediloL 6.25 MG TAB PO ONE (13:56)
[2022-06-16] MEDS ORDERED: LABETALOL HCL IV 5 MG/ML 20ML IV PRN (15:17)
[2022-06-16] MEDS ORDERED: FUROSEMIDE INJ 20 MG/2 ML VIAL IV ONE ×2 (15:20→15:29)
[2022-06-16] MEDS ORDERED: ZOLPIDEM TARTRATE 5 MG TAB PO PRN (15:41)
[2022-06-16] MEDS ORDERED: MoRPHine SULFATE 2 MG/ML CARP IV STA (15:57)
--- NOTE | 2022-06-16 18:09 | Communication Note ---
Date of Service: June 16, 2022 Critical CARE addendum: Patient's blood pressure started to creep up going into systolic 200s. Blood pressure was checked in both arms right and left which showed persistent elevated blood pressure in the 190s and 200s systolic and diastolic being in the 110s. Patient was getting confused as well. He did get 40 mg of lisinopril 10 mg of amlodipine with no significant improvement in blood pressure. Patient was ultimately started on nicardipine drip. He was maxed out on nicardipine drip and still blood pressure stayed around 190. Labetalol pushes on top of nicardipine drip was started which did help If the patient's blood pressure continues to stay elevated then I will add esmolol drip on top of nicardipine Patient did get Coreg 6.25 mg p.o. pill. For the pain morphine 1 mg every hour as needed to be given Patient will benefit from having a family member stay in the room overnight as there is significant language barrier which does make delirious Family made aware regarding patient's condition Hospitalist also made aware regarding patient staying in the ICU I have personally spent 34 minutes of critical care time in the direct management of this patient. This is a life/limb threatening event. This includes time spent evaluating patient, direct bedside care, chart review, placing orders, interpretation of diagnostic studies, discussion with consultants, patient, and family members, as well as other required patient management activities. This time is exclusive of all separately billable procedures, and teaching time and separate from and in addition to any other critical care service time. Please note the above document was generated using voice recognition software. It may contain grammatical, syntax or spelling errors. Coding Level of Care Code Critical Care 1st 30-74 mins Time Spent (min) 34
[2022-06-16] MEDS: VANCOMYCIN HCL 1,750 MG in SODIUM CHLORIDE 0.9% 500 ML IV SCH (20:21)
--- NOTE | 2022-06-16 22:42 | Electrocardiogram Report ---
Test Reason : Blood Pressure : / mmHG Vent. Rate : 081 BPM Atrial Rate : 081 BPM P-R Int : 148 ms QRS Dur : 104 ms QT Int : 400 ms P-R-T Axes : 048 060 039 degrees QTc Int : 464 ms Poor data quality, interpretation may be adversely affected Normal sinus rhythm Normal ECG When compared with ECG of 12-JUN-2022 12:10, No significant change was found Confirmed by Mitch Candelaria ([id number]) on 06/16/2022 10:41:57 PM Referred By: REFERRED SELF Confirmed By:Mitch Candelaria
[2022-06-17] MEDS: niCARdipine 25 MG in SODIUM CHLORIDE 0.9% 240 ML IV SCH ×3 (00:39→04:16)
[2022-06-17] MEDS: AMPICILLIN 2,000 MG in SODIUM CHLOR 0.9% AD-VAN 100 ML IV SCH ×3 (02:19→10:24)
[2022-06-17] MEDS: VANCOMYCIN HCL 1,750 MG in SODIUM CHLORIDE 0.9% 500 ML IV SCH (04:18)
[2022-06-17 05:12] LABS: Basophils # (auto) 0.07 K/uL (0-0.2); Basophils % (auto) 0.4 %; Eosinophils # (auto) 0.09 K/uL (0-0.50); Eosinophils % (auto) 0.6 %; Hematocrit (blood only) 34.3 % (40.1-51.0); Hemoglobin 11.8 g/dl (14.0-18.0); Immature Granulocytes # (auto) 0.57 K/uL (0.00-0.02); Immature Granulocytes % (auto) 3.5 %; Lymphocytes # (auto) 2.12 K/uL (1.2-3.4); Mean Corpuscular Hemoglobin 30.8 pg (25.0-34.0); Mean Corpuscular Hgb Conc 34.4 g/dL (32.0-36.0); Mean Corpuscular Volume 89.6 fL (80.0-100.0); Mean Platelet Volume 9.8 fL (9.4-12.4); Monocytes # (auto) 1.22 K/uL (0.24-0.82); Monocytes % (auto) 7.5 %; Neutrophils # (auto) 12.26 K/uL (1.4-6.5); Platelet Count 226 K/uL (130-400); RDW Coefficient of Variation 13.4 % (11.5-14.5); RDW Standard Deviation 43.8 fL (36.4-46.3); Red Blood Count 3.83 M/uL (4.63-6.08); White Blood Count 16.33 K/ul (4.8-10.8)
[2022-06-17 05:45] LABS: BUN Creatinine Ratio 26.2 (10-20); Calcium 7.9 mg/dl (8.5-10.1); Creatinine Clr Calc Pharmacy 188.3 ml/min; Est GFR (Non-African American) 115.6 ml/min; Magnesium 1.8 mg/dl (1.7-2.4); Phosphorus 2.5 mg/dl (2.5-4.9); Potassium 3.7 mmol/L (3.5-5.1)
[2022-06-17] MEDS: DEXTROSE 5% IV SCH ×3 (05:53→22:45)
[2022-06-17] MEDS: ACYCLOVIR SOD IV SCH ×3 (05:53→22:45)
[2022-06-17] MEDS: MAGNESIUM SULFATE / D5W 1 GM/100 ML BAG IV SCH ×2 (07:01→08:37)
[2022-06-17] MEDS: POTASSIUM CHLORIDE / WTR 10 MEQ/100 ML PLCT IV SCH ×2 (07:01→08:35)
[2022-06-17] MEDS ORDERED: MoRPHine SULFATE 2 MG/ML CARP IV PRN (07:32)
[2022-06-17] MEDS: cefTRIAXone SODIUM 2,000 MG in DEXTROSE 5% 50 ML IV SCH ×2 (07:44→20:20)
[2022-06-17] MEDS: INSULIN ASPART PER UNIT SC SCH ×3 (07:45→16:38)
[2022-06-17] MEDS: PANTOprazole 40 MG in SYRINGE 0 ML IV SCH (07:45)
[2022-06-17] MEDS: ALBUT/IPRATROP 3MG/0.5MG NEB 3 ML VIAL NEB SCH ×3 (07:50→23:36)
[2022-06-17] MEDS: lisinopril 40 MG TAB PO SCH (08:45)
--- NOTE | 2022-06-17 09:41 | XRay Report ---
SINGLE VIEW CHEST CLINICAL HISTORY: Extubation. FINDINGS: An AP, portable, upright chest radiograph is compared to study dated 06/15/2022. The examina tion is degraded by portable technique and apical lordotic positioning. Endotracheal and enteric tube s have been removed. The heart is enlarged. The pulmonary vascularity is noncongested. Aeration of th e lungs has significantly improved from previous. No airspace consolidation or large pleural effusion is identified. No pneumothorax is seen. The bony thorax is grossly intact. IMPRESSION: 1. Endotracheal and enteric tubes have been removed. 2. Cardiomegaly without radiographic evidence of congestive failure. 3. The lungs are clear with improved aeration as compared to previous. ACT 112: Negative or not required by law. Electronically signed by: Giovanni Vásquez M.D. 06/17/2022 9:40 AM
--- NOTE | 2022-06-17 10:02 | Critical Care Progress Note ---
Date of Service June 17, 2022 Assessment & Plan (1) Endotracheally intubated: Plan: ICU Assessment and Plans Reason Critically Ill: 52yo Male with PMH chest pain HTN brought to ED by EMS found in AMS which progressed to reduced consciousness, admitted to ICU for AMS tachypnea and fever. Neuro - [facility] ICU: Negative AMS --> still having bouts of confusion -urine drug screen +marijuana, no response to naloxone -ammonia 33, no anion gap -Head CT and cervical spine CT unremarkable -CT Abd/Pelvis: Suboptimal study due to the motion and streak artifact. Acute to subacute mild superior endplate compression fractures at T12 and L1. Hepatic steatosis. No bowel wall thickening or obstruction. Normal appendix. Cardiac - HTN emergency Required nicardipine drip on 06/16/2022, able to be weaned off on the same night Lisinopril has been started Add medication as needed -2D echo: Difficulties study given body habitus. Normal EF. Unable to assess valves for endocarditis Respiratory - Intubated --> extubated 06/15/2022 Oxygenating well on room air GI - Cardiac low-sodium diet Protonix 40mg IV Daily RENAL/LYTES - No significant electrolyte derangement. Replace lytes as needed - -- Traumatic removal of De La Vega by the patient on 06/15/2022 Hematuria following back A new catheter was placed in, hematuria has resolved H&H stable As per urology continue with De La Vega catheter for 1 week ENDO - Continue with ICU hypoglycemia protocol A1c 6 TSH 0.287, free t4 wnl HEME - Stable H&H. Will monitor for any drops in the setting of Heparin gtt ID - Concern for Meningitis likely Viral -lactate procal wnl, normal prolactin -continue Rocephin for possible strep -Vanco and ampicillin DCed 06/17/22 -continue Acyclovir for possible herpes peripheral smear negative tick panel 2+ lyme bands, Lyme Western blot negative overall negative lyme -UA neg -CSF culture negative to date -blood culture growing staph Lugu -CSF WBC 186, glu 109, TP 96.7, biofire neg -Brain MRI: Question subtle leptomeningeal enhancement along the cerebellar cortex. This could be seen with meningitis in the appropriate clinical setting. Bacteremia -serology + staph, staph epidermidis, staph lugdunensis -blood cultures gram + cocci in clusters, blood cultures repeated 9/21 --> negative to date INTEGUMENTARY - skin clean dry intact no rashes noted Anterior dislocation of right shoulder -reduced in ED, confirmed by shoulder XR -ortho consulted, noted fracture, repeat CT when stable, may repair in 2 weeks when stable -right arm in sling --Prophylaxis VTE: Heparin GI: Protonix Lines: Peripheral Diet: Cardiac low-sodium diet Plan: In/out: +1.9 L, urine output 4900 mL Continue with De La Vega catheter for at least a week as per urology I will DC vancomycin and ampicillin today given no growth for more than 72 hours in the CSF. Continue with acyclovir and Rocephin for the time being Yesterday patient blood pressure was significantly elevated and he needed nicardipine drip as well as multiple rounds of labetalol. Nicardipine drip was able to be withdrawn overnight. Today the blood pressure is much better. I will continue with lisinopril 40 mg. If the blood pressure is still on the higher side then I would add Coreg 12.5 mg every 12 hours I have ordered metanephrines to be done as well Hypokalaemia and Hypomagnesemia being replaced. Case was discussed with Dr. Garcia Please note the above document was generated using voice recognition software. It may contain grammatical, syntax or spelling errors.Any formal questions or concerns about the content, text or information contained within the body of this dictation should be directly addressed to the provider for clarification. (2) Altered mental state: (3) Hypertension: Admission and Anticipated Discharge Date Admission Date: June 12, 2022 Subjective Patient seen and examined at bedside. NAD. BRADLEY overnight. Patient slept for only 2 hours. Was off nicardipine. SBP 150's. Did complain of some pain around the right shoulder. No N or V. No CP, No dizziness. no JACKSON. No blurry vision Review of Systems Review of Systems: All systems reviewed & are unremarkable except as noted in Subjective Physical Exam Physical Exam: Constitutional: No acute distress HEENT: PERRLA, EOMI, left eye conjunctival hemorrhage Respiratory system: Good air entry bilaterally, no wheeze, rhonchi, mild crackles bilateral lower lobes CVS: S1-S2 positive, no murmurs or gallops Abdomen: Soft, nontender, nondistended, positive bowel sounds x4, obese Extremities: +2 pulses bilaterally radialis/ dorsalis pedis, no cyanosis, no edema,right arm in sling Neuro: Awake alert oriented to self and place Psych:Normal mood and affect G/U: Positive De La Vega Skin: no rashes, warm and dry Lymphatic: no cervical or axillary lymphadenopathy Results & Data Results & Data ([facility]) Vital Signs (Past 12 Hours) Vital Signs Temp Pulse Pulse Resp BP Pulse Ox O2 Del Method 06/17/22 08:00 72 06/17/22 08:11 82 18 95 Room Air 06/17/22 06:30 72 21 Room Air 06/17/22 06:30 129/66 06/17/22 06:15 76 25 H 06/17/22 06:00 75 29 H 06/17/22 06:00 131/61 06/17/22 05:45 74 24 95 06/17/22 05:30 76 24 06/17/22 05:30 119/50 L 06/17/22 05:15 75 28 H 06/17/22 05:00 76 33 H 94 06/17/22 05:00 127/63 06/17/22 04:45 79 28 H 06/17/22 04:30 76 28 H 06/17/22 04:30 131/65 06/17/22 04:15 79 17 91 06/17/22 04:00 77 23 90 06/17/22 04:00 119/64 06/17/22 03:45 82 19 06/17/22 03:30 82 17 06/17/22 03:30 108/70 06/17/22 03:15 83 36 H 89 L 06/17/22 03:01 124/78 06/17/22 03:01 84 17 06/17/22 03:00 83 28 H 06/17/22 02:45 84 27 H 06/17/22 02:30 83 27 H 06/17/22 02:15 75 28 H 90 06/17/22 02:01 73 20 06/17/22 02:01 168/83 H 06/17/22 02:00 77 25 H 06/17/22 01:45 76 27 H 90 06/17/22 01:31 77 19 96 06/17/22 01:31 161/72 H 06/17/22 01:30 80 16 97 06/17/22 01:15 78 19 91 06/17/22 01:01 79 39 H 93 06/17/22 01:01 166/79 H 06/17/22 01:00 77 24 93 06/17/22 00:45 75 19 96 06/17/22 00:31 183/87 H 06/17/22 00:31 77 22 95 06/17/22 00:30 77 32 H 93 06/17/22 00:15 76 37 H 06/17/22 00:01 77 29 H 06/17/22 00:01 159/74 H 06/17/22 00:00 78 29 H 06/16/22 23:45 76 32 H 90 06/17/22 06:00 36.8 C 06/17/22 00:00 37.3 C 06/17/22 00:00 79 06/16/22 23:31 150/69 H 06/16/22 23:31 77 38 H 06/16/22 23:30 76 38 H 06/16/22 23:15 76 23 95 06/16/22 23:01 75 33 H 99 06/16/22 23:01 174/86 H 06/16/22 23:00 77 25 H 99 06/16/22 22:45 77 37 H 83 L 06/16/22 22:31 75 29 H 94 06/16/22 22:31 169/87 H 06/16/22 22:30 75 32 H 93 06/16/22 22:15 76 29 H 06/16/22 22:00 78 28 H 92 06/16/22 23:07 74 14 99 Room Air Laboratory Results 06/17/22 04:43 06/17/22 04:43 Coding Level of Care Code 15300 Subseq Hosp Care Lvl 3 Diagnoses Endotracheally intubated Z97.8 Altered mental state R41.82 Hypertension I10
[2022-06-17] MEDS ORDERED: VANCOMYCIN LEVEL ONE (11:30)
--- NOTE | 2022-06-17 12:49 | Hospitalist Progress Note ---
Date of Service June 17, 2022 Assessment & Plan (1) Altered mental state: Plan: Now resolved -Patient has been extubated. Awake, alert oriented -Says he is from [facility] -Only complaint is right shoulder pain -Although does not remember the events leading up to his hospitalization -CT scan of the head was done, we did not show any acute findings -CT C-spine did not show any fracture or dislocation -Chest x-ray did not show any acute pathology -CT abdomen showed evidence of T12/L1 compression fracture but otherwise normal -Toxicology was positive for marijuana, which his daughter corroborates that he takes -Lumbar puncture did not suggest bacterial meningitis - (2) Bacteremia: Plan: Source is unknown Initially on Vancomycin, has been discontinued Growing gram-positive cocci in clusters, pansensitive Continue Ampicillin, Ceftriaxone 2 D ECHO did not suggest any vegetations on the valves Consult ID (3) Meningitis: Plan: suspected meningitis MRI brain showed some questionable enhancement Initially started on broad spectrum anti biotics CSF cultures did not suggest bacterial meningitis, the rest of CSF studies pending Continue Ceftriaxone given positive blood culture and Acyclovir Consult ID (4) Hypertension: Plan: Now under better control Continue Lisinopril and Cravedilol (5) Dislocation of right shoulder joint: Plan: Has been reduced However, per Ortho will need definitive ORIF when medically stable (6) Urethral trauma: Plan: Due to traumatic removal of egan Hematuria has resolved per urology, egan should be left in for 1 week Plan DIL #[phone] Ifeanyi will be available if other phone number does not work. Family #[phone]. DVT prophylaxis: [facility] Admission and Anticipated Discharge Date Admission Date: June 12, 2022 Subjective patient seen and examined, now awake and alert, still complaining of right shoulder pain, daughter and by the bedside Review of Systems Review of Systems: All systems reviewed are negative, apart from the ones contained in the history. Physical Exam Physical Exam: Awake, alert, oriented HEENT--PERRL, EOMI, mucous membranes and oropharynx mildly dry Neck--supple. No JVD. No bruits. Thyroid normal, trachea midline, no adenopathy. Heart--normal S1 and S2. No murmurs, rubs or gallops. Lungs--Reduced air entry Abdomen--normal bowel sounds and soft. Mild epigastric and left sided abdominal pain Extremities--no cyanosis or clubbing. No edema. Dermatologic--normal skin turgor, normal color, no abnormal lymph nodes, no rash. Neurologic--cranial nerves II through XII grossly intact. Rheumatologic--normal range of motion. Psychiatric--unable to assess. Results & Data Results & Data ([facility]) Vital Signs (Past 12 Hours) Vital Signs Temp Pulse Pulse Resp BP Pulse Ox O2 Del Method 06/17/22 11:00 83 20 154/102 H 95 06/17/22 10:00 75 14 135/76 89 L 06/17/22 09:00 81 20 136/78 95 06/17/22 08:00 83 30 H 164/96 H 93 06/17/22 07:00 79 32 H 136/71 93 Room Air 06/17/22 08:00 98.6 F 06/17/22 08:00 72 06/17/22 08:11 82 18 95 Room Air 06/17/22 06:30 72 21 Room Air 06/17/22 06:30 129/66 06/17/22 06:15 76 25 H 06/17/22 06:00 75 29 H 06/17/22 06:00 131/61 06/17/22 05:45 74 24 95 06/17/22 05:30 76 24 06/17/22 05:30 119/50 L 06/17/22 05:15 75 28 H 06/17/22 05:00 76 33 H 94 06/17/22 05:00 127/63 06/17/22 04:45 79 28 H 06/17/22 04:30 76 28 H 06/17/22 04:30 131/65 06/17/22 04:15 79 17 91 06/17/22 04:00 77 23 90 06/17/22 04:00 119/64 06/17/22 03:45 82 19 06/17/22 03:30 82 17 06/17/22 03:30 108/70 06/17/22 03:15 83 36 H 89 L 06/17/22 03:01 124/78 06/17/22 03:01 84 17 06/17/22 03:00 83 28 H 06/17/22 02:45 84 27 H 06/17/22 02:30 83 27 H 06/17/22 02:15 75 28 H 90 06/17/22 02:01 73 20 06/17/22 02:01 168/83 H 06/17/22 02:00 77 25 H 06/17/22 01:45 76 27 H 90 06/17/22 01:31 77 19 96 06/17/22 01:31 161/72 H 06/17/22 01:30 80 16 97 06/17/22 01:15 78 19 91 06/17/22 01:01 79 39 H 93 06/17/22 01:01 166/79 H 06/17/22 01:00 77 24 93 06/17/22 00:45 75 19 96 06/17/22 06:00 98.2 F PG Care Time/CCT Total # of Minutes Spent Total Time Spent with Patient: Total time spent is greater than 50% in coordination of care (as documented) at patient's floor/unit and/or counseling patient: Coding Level of Care Code 04848 Subseq Hosp Care Lvl 2 Diagnoses Altered mental state R41.82 Bacteremia R78.81 Meningitis G03.9 Hypertension I10 Dislocation of right shoulder joint S43.004A Urethral trauma S37.30XA Time Spent (min) 35
[2022-06-17] MEDS: HEPARIN SOD 5,000 UNIT/0.5 ML VIAL SQ SCH ×2 (15:12→22:46)
[2022-06-17] MEDS ORDERED: Nursing to Pharmacy Communication SCH (16:45)
[2022-06-17 19:32] LABS: Q Fever IgG, Phase I NEGATIVE; Q Fever Phase I IgM Antibody NEGATIVE; Q Fever Phase II IgG Antibody NEGATIVE; Q Fever Phase II IgM Antibody NEGATIVE; R. typhi IgG Ab NOT DETECTED; R. typhi IgM Ab NOT DETECTED; RMSF IgG Ab NOT DETECTED; RMSF IgM Ab NOT DETECTED
[2022-06-18] MEDS: HEPARIN SOD 5,000 UNIT/0.5 ML VIAL SQ SCH ×3 (05:39→22:44)
[2022-06-18] MEDS: ACYCLOVIR SOD IV SCH ×3 (05:58→22:46)
[2022-06-18] MEDS: DEXTROSE 5% IV SCH ×3 (05:58→22:46)
[2022-06-18 06:08] LABS: Basophils % (auto) 0.6 %; Eosinophils # (auto) 0.22 K/uL (0-0.50); Eosinophils % (auto) 1.4 %; Hemoglobin 12.3 g/dl (14.0-18.0); Immature Granulocytes % (auto) 3.7 %; Lymphocytes # (auto) 2.45 K/uL (1.2-3.4); Lymphocytes % (auto) 15.1 %; Mean Corpuscular Hemoglobin 30.7 pg (25.0-34.0); Mean Corpuscular Hgb Conc 34.2 g/dL (32.0-36.0); Mean Corpuscular Volume 89.8 fL (80.0-100.0); Mean Platelet Volume 10.6 fL (9.4-12.4); Monocytes # (auto) 1.27 K/uL (0.24-0.82); Monocytes % (auto) 7.8 %; Neutrophils # (auto) 11.56 K/uL (1.4-6.5); Neutrophils % (auto) 71.4 %; Platelet Count 233 K/uL (130-400); RDW Coefficient of Variation 13.6 % (11.5-14.5); Red Blood Count 4.01 M/uL (4.63-6.08)
[2022-06-18 06:40] LABS: BUN Creatinine Ratio 23.9 (10-20); Calcium 8.3 mg/dl (8.5-10.1); Creatinine Clr Calc Pharmacy 164.2 ml/min; Est GFR (African American) 125.9 ml/min; Est GFR (Non-African American) 108.6 ml/min; Magnesium 2.1 mg/dl (1.7-2.4); Phosphorus 3.7 mg/dl (2.5-4.9)
[2022-06-18] MEDS: niCARdipine 25 MG in SODIUM CHLORIDE 0.9% 240 ML IV SCH ×2 (07:11→07:12)
[2022-06-18] MEDS: ALBUT/IPRATROP 3MG/0.5MG NEB 3 ML VIAL NEB SCH (07:38)
[2022-06-18] MEDS: lisinopril 40 MG TAB PO SCH (08:57)
[2022-06-18] MEDS: PANTOprazole 40 MG in SYRINGE 0 ML IV SCH (08:57)
[2022-06-18] MEDS: cefTRIAXone SODIUM 2,000 MG in DEXTROSE 5% 50 ML IV SCH ×2 (08:57→20:50)
[2022-06-18 09:08] LABS: Ehrlichia chaff DNA Bld Negative (Negative)
--- NOTE | 2022-06-18 09:30 | Critical Care Progress Note ---
Date of Service June 18, 2022 Assessment & Plan (1) Endotracheally intubated: Plan: ICU Assessment and Plans Reason Critically Ill: 52yo Male with PMH chest pain HTN brought to ED by EMS found in AMS which progressed to reduced consciousness, admitted to ICU for AMS tachypnea and fever. Neuro - [facility] ICU: Negative AMS --> improved -urine drug screen +marijuana, no response to naloxone -ammonia 33, no anion gap -Head CT and cervical spine CT unremarkable -CT Abd/Pelvis: Suboptimal study due to the motion and streak artifact. Acute to subacute mild superior endplate compression fractures at T12 and L1. Hepatic steatosis. No bowel wall thickening or obstruction. Normal appendix. Cardiac - HTN emergency: resolvd Required nicardipine drip on 06/16/2022, able to be weaned off on the same night Lisinopril has been started -2D echo: Difficulties study given body habitus. Normal EF. Respiratory - Intubated --> extubated 06/15/2022 Oxygenating well on room air GI - Cardiac low-sodium diet Protonix 40mg IV Daily RENAL/LYTES - No significant electrolyte derangement. Replace lytes as needed - -- Traumatic removal of De La Vega by the patient on 06/15/2022 Hematuria following back A new catheter was placed in, hematuria has resolved H&H stable As per urology continue with De La Vega catheter for 1 week ENDO - Continue with ICU hypoglycemia protocol A1c 6 TSH 0.287, free t4 wnl HEME - Stable H&H. ID - Concern for Meningitis likely Viral -lactate procal wnl, normal prolactin -continue Rocephin for possible strep -Vanco and ampicillin DCed 06/17/22 -continue Acyclovir for possible herpes peripheral smear negative tick panel 2+ lyme bands, Lyme Western blot negative overall negative lyme -UA neg -CSF culture negative to date -blood culture growing staph Lugu -CSF WBC 186, glu 109, TP 96.7, biofire neg -Brain MRI: Question subtle leptomeningeal enhancement along the cerebellar cortex. This could be seen with meningitis in the appropriate clinical setting. ID consult ordered by hospitalist Bacteremia -serology + staph, staph epidermidis, staph lugdunensis -blood cultures gram + cocci in clusters, blood cultures repeated 06/13 --> negative to date INTEGUMENTARY - skin clean dry intact no rashes noted Anterior dislocation of right shoulder -reduced in ED, confirmed by shoulder XR -ortho consulted, noted fracture, repeat CT when stable, may repair in 2 weeks when stable -right arm in sling --Prophylaxis VTE: Heparin GI: Protonix Lines: Peripheral Diet: Cardiac low-sodium diet stable to downgrade out of ICU (2) Altered mental state: (3) Hypertension: Admission and Anticipated Discharge Date Admission Date: June 12, 2022 Results & Data Results & Data ([facility]) Vital Signs (Past 12 Hours) Vital Signs Temp Pulse Pulse Resp BP Pulse Ox O2 Del Method 06/18/22 08:31 68 22 94 Room Air 06/18/22 08:00 76 27 H 98 Room Air 06/18/22 08:00 139/92 06/18/22 07:30 165/99 H 06/18/22 07:30 76 25 H 06/18/22 07:00 62 18 100 06/18/22 06:30 153/99 H 06/18/22 06:30 69 06/18/22 06:00 121/73 06/18/22 05:44 67 16 06/18/22 05:44 121/102 H 06/18/22 05:30 66 16 90 06/18/22 05:30 148/107 H 06/18/22 05:15 69 27 H 06/18/22 05:00 67 22 06/18/22 05:00 142/84 H 06/18/22 04:45 64 27 H 06/18/22 04:30 65 26 H 82 L 06/18/22 04:15 64 28 H 06/18/22 04:00 75 17 06/18/22 05:49 37.1 C 06/18/22 03:45 70 18 90 06/18/22 03:30 69 18 06/18/22 03:30 159/75 H 06/18/22 03:15 65 23 06/18/22 03:01 70 13 06/18/22 03:01 144/98 H 06/18/22 03:00 72 18 06/18/22 02:45 69 12 06/18/22 02:30 71 18 06/18/22 02:30 136/114 H 06/18/22 02:15 66 18 06/18/22 02:01 68 18 06/18/22 02:01 126/82 06/18/22 02:00 69 18 94 06/18/22 01:45 69 18 06/18/22 01:31 65 24 06/18/22 01:31 117/62 06/18/22 01:30 67 21 06/18/22 01:15 71 15 93 06/18/22 01:00 73 16 94 06/18/22 01:00 151/90 H 06/18/22 00:45 73 16 96 06/18/22 00:30 78 16 91 06/18/22 00:00 74 06/18/22 00:15 74 27 H 06/18/22 00:00 80 24 06/18/22 00:00 134/85 06/17/22 23:45 74 25 H 99 06/17/22 23:30 67 26 H 06/17/22 23:30 153/95 H 06/18/22 00:20 37.2 C 06/17/22 23:36 74 16 94 Room Air 06/17/22 23:29 Room Air 06/17/22 23:15 76 34 H 93 06/17/22 23:00 67 29 H 96 06/17/22 23:00 135/94 06/17/22 22:45 74 21 100 06/17/22 22:30 73 06/17/22 22:30 147/99 H 06/17/22 22:15 70 21 93 06/17/22 22:00 71 26 H 91 06/17/22 22:00 144/92 H 06/17/22 21:45 68 14 06/17/22 21:30 72 21 06/17/22 21:30 140/88 Coding Level of Care Code 90032 Subseq Hosp Care Lvl 1 Diagnoses Endotracheally intubated Z97.8 Altered mental state R41.82 Hypertension I10
--- NOTE | 2022-06-18 12:51 | Hospitalist Progress Note ---
Date of Service June 18, 2022 Assessment & Plan (1) Altered mental state: Plan: Now resolved -Patient has been extubated. 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 events leading up to his hospitalization -CT scan of the head was done, we did not show any acute findings -CT C-spine did not show any fracture or dislocation -Chest x-ray did not show any acute pathology -CT abdomen showed evidence of T12/L1 compression fracture but otherwise normal -Toxicology was positive for marijuana, which his daughter corroborates that he takes -Lumbar puncture did not suggest bacterial meningitis - (2) Bacteremia: Plan: Source is unknown Initially on Vancomycin, has been discontinued Growing gram-positive cocci in clusters, pansensitive Continue Ampicillin, Ceftriaxone 2 D ECHO did not suggest any vegetations on the valves Repeat cultures have been negative Consult ID (3) Meningitis: Plan: suspected meningitis MRI brain showed some questionable enhancement Initially started on broad spectrum anti biotics CSF cultures did not suggest bacterial meningitis, the rest of CSF studies pending Continue Ceftriaxone given positive blood culture and Acyclovir Consult ID (4) Hypertension: Plan: Now under better control Continue Lisinopril and Cravedilol (5) Dislocation of right shoulder joint: Plan: Has been reduced However, per Ortho will need definitive ORIF when medically stable (6) Urethral trauma: Plan: Due to traumatic removal of egan Hematuria has resolved per urology, egan should be left in for 1 week Plan [facility] #[phone] Ifeanyi will be available if other phone number does not work. Family #[phone]. DVT prophylaxis: SCDs Admission and Anticipated Discharge Date Admission Date: June 12, 2022 Subjective patient seen abd examined, son by the bed side, provided interpretation. 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 Physical Exam Physical Exam: Awake, alert, oriented HEENT--PERRL, EOMI, mucous membranes and oropharynx mildly dry Neck--supple. No JVD. No bruits. Thyroid normal, trachea midline, no adenopathy. Heart--normal S1 and S2. No murmurs, rubs or gallops. Lungs--Reduced air entry Abdomen--normal bowel sounds and soft. Mild epigastric and left sided abdominal pain Extremities--no cyanosis or clubbing. No edema. Dermatologic--normal skin turgor, normal color, no abnormal lymph nodes, no rash. Neurologic--cranial nerves II through XII grossly intact. Rheumatologic--normal range of motion. Psychiatric--unable to assess. Results & Data Results & Data ([facility]) Vital Signs (Past 12 Hours) Vital Signs Temp Pulse Pulse Resp BP Pulse Ox O2 Del Method 06/18/22 08:00 Room Air 06/18/22 08:31 68 22 94 Room Air 06/18/22 08:00 76 27 H 98 Room Air 06/18/22 08:00 139/92 06/18/22 07:30 165/99 H 06/18/22 07:30 76 25 H 06/18/22 07:00 62 18 100 06/18/22 06:30 153/99 H 06/18/22 06:30 69 06/18/22 06:00 121/73 06/18/22 05:44 67 16 06/18/22 05:44 121/102 H 06/18/22 05:30 66 16 90 06/18/22 05:30 148/107 H 06/18/22 05:15 69 27 H 06/18/22 05:00 67 22 06/18/22 05:00 142/84 H 06/18/22 04:45 64 27 H 06/18/22 04:30 65 26 H 82 L 06/18/22 04:15 64 28 H 06/18/22 04:00 75 17 06/18/22 05:49 98.8 F 06/18/22 03:45 70 18 90 06/18/22 03:30 69 18 06/18/22 03:30 159/75 H 06/18/22 03:15 65 23 06/18/22 03:01 70 13 06/18/22 03:01 144/98 H 06/18/22 03:00 72 18 06/18/22 02:45 69 12 06/18/22 02:30 71 18 06/18/22 02:30 136/114 H 06/18/22 02:15 66 18 06/18/22 02:01 68 18 06/18/22 02:01 126/82 06/18/22 02:00 69 18 94 06/18/22 01:45 69 18 06/18/22 01:31 65 24 06/18/22 01:31 117/62 06/18/22 01:30 67 21 06/18/22 01:15 71 15 93 06/18/22 01:00 73 16 94 06/18/22 01:00 151/90 H PG Care Time/CCT Total # of Minutes Spent Total Time Spent with Patient: Total time spent is greater than 50% in coordination of care (as documented) at patient's floor/unit and/or counseling patient: Coding Level of Care Code 69295 Subseq Hosp Care Lvl 2 Diagnoses Altered mental state R41.82 Bacteremia R78.81 Meningitis G03.9 Hypertension I10 Dislocation of right shoulder joint S43.004A Urethral trauma S37.30XA Time Spent (min) 35
[2022-06-18] MEDS: ACETAMINOPHEN 325 MG TAB PO PRN (20:49)
[2022-06-19] MEDS: HEPARIN SOD 5,000 UNIT/0.5 ML VIAL SQ SCH ×3 (05:38→21:36)
[2022-06-19] MEDS: ACYCLOVIR SOD IV SCH ×3 (05:38→21:40)
[2022-06-19] MEDS: DEXTROSE 5% IV SCH ×3 (05:38→21:40)
[2022-06-19 06:28] LABS: Basophils % (auto) 0.6 %; Eosinophils # (auto) 0.28 K/uL (0-0.50); Eosinophils % (auto) 1.7 %; Hematocrit (blood only) 36.8 % (40.1-51.0); Hemoglobin 12.8 g/dl (14.0-18.0); Immature Granulocytes % (auto) 4.8 %; Lymphocytes # (auto) 2.67 K/uL (1.2-3.4); Lymphocytes % (auto) 16.1 %; Mean Corpuscular Hemoglobin 31.2 pg (25.0-34.0); Mean Corpuscular Hgb Conc 34.8 g/dL (32.0-36.0); Mean Corpuscular Volume 89.8 fL (80.0-100.0); Mean Platelet Volume 9.8 fL (9.4-12.4); Monocytes # (auto) 1.29 K/uL (0.24-0.82); Monocytes % (auto) 7.8 %; Neutrophils # (auto) 11.46 K/uL (1.4-6.5); Platelet Count 297 K/uL (130-400); RDW Coefficient of Variation 13.8 % (11.5-14.5); RDW Standard Deviation 44.2 fL (36.4-46.3)
[2022-06-19 06:59] LABS: BUN Creatinine Ratio 25.4 (10-20); Calcium 8.4 mg/dl (8.5-10.1); Creatinine Clr Calc Pharmacy 161.4 ml/min; Est GFR (African American) 125.9 ml/min; Est GFR (Non-African American) 108.6 ml/min; Phosphorus 3.7 mg/dl (2.5-4.9); Potassium 4.1 mmol/L (3.5-5.1)
[2022-06-19] MEDS: PANTOprazole 40 MG in SYRINGE 0 ML IV SCH (09:17)
[2022-06-19] MEDS: cefTRIAXone SODIUM 2,000 MG in DEXTROSE 5% 50 ML IV SCH ×2 (09:17→20:11)
[2022-06-19] MEDS: lisinopril 40 MG TAB PO SCH (09:17)
--- NOTE | 2022-06-19 11:21 | Hospitalist Progress Note ---
Date of Service June 19, 2022 Assessment & Plan (1) Altered mental state: Plan: Now resolved -Patient has been extubated. 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 hospitalization -CT scan of the head was done, we did not show any acute findings -CT C-spine did not show any fracture or dislocation -Chest x-ray did not show any acute pathology -CT abdomen showed evidence of T12/L1 compression fracture but otherwise normal -Toxicology was positive for marijuana, which his daughter corroborates that he takes -Lumbar puncture did not suggest bacterial meningitis - (2) Bacteremia: Plan: Source is unknown Initially on Vancomycin, has been discontinued Growing gram-positive cocci in clusters, pansensitive Ampicillin, Ceftriaxone have been discontinued by ID Nafcillin has been started, will need it for 4 weeks per ID, appreciate recs 2 D ECHO did not suggest any vegetations on the valves Repeat cultures have been negative (3) Meningitis: Plan: suspected meningitis MRI brain showed some questionable enhancement Initially started on broad spectrum anti biotics CSF cultures did not suggest bacterial meningitis, the rest of CSF studies pending Continue Acyclovir for now until all the cultures have resulted Appreciate ID recs (4) Hypertension: Plan: Now under better control Continue Lisinopril and Cravedilol (5) Dislocation of right shoulder joint: Plan: Has been reduced However, per Ortho will need definitive ORIF when medically stable Patient will need at least 4 weeks of antibiotics before attempting repair He lives in [place], and may have to find a surgeon there after his antibiotics (6) Urethral trauma: Plan: Due to traumatic removal of egan Hematuria has resolved per urology, egan should be left in for 1 week 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 He needs antibiotics for 4 weeks and also needs his shoulder repaired after antibiotics He prefers to go back to [place]. Will consult case management to help in planning [facility] #[phone] Ifeanyi will be available if other phone number does not work. Family #[phone]. DVT prophylaxis: SCDs Admission and Anticipated Discharge Date Admission Date: June 12, 2022 Subjective patient seen abd examined, son by the bed side, provided interpretation. 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 Physical Exam Physical Exam: Awake, alert, oriented HEENT--PERRL, EOMI, mucous membranes and oropharynx mildly dry Neck--supple. No JVD. No bruits. Thyroid normal, trachea midline, no adenopathy. Heart--normal S1 and S2. No murmurs, rubs or gallops. Lungs--Reduced air entry Abdomen--normal bowel sounds and soft. Mild epigastric and left sided abdominal pain Extremities--no cyanosis or clubbing. No edema. Dermatologic--normal skin turgor, normal color, no abnormal lymph nodes, no rash. Neurologic--cranial nerves II through XII grossly intact. Rheumatologic--normal range of motion. Psychiatric--unable to assess. Results & Data Results & Data ([facility]) Vital Signs (Past 12 Hours) Vital Signs Temp Pulse Pulse Resp BP BP Pulse Ox 06/19/22 09:17 121/79 06/19/22 07:24 97.9 F 67 19 128/76 95 06/19/22 02:28 98.6 F 64 16 122/73 94 06/19/22 00:00 75 O2 Del Method 06/19/22 09:17 06/19/22 07:24 Room Air 06/19/22 02:28 Room Air 06/19/22 00:00 PG Care Time/CCT Total # of Minutes Spent Total Time Spent with Patient: Total time spent is greater than 50% in coordination of care (as documented) at patient's floor/unit and/or counseling patient: Coding Level of Care Code 25471 Subseq Hosp Care Lvl 2 Diagnoses Altered mental state R41.82 Bacteremia R78.81 Meningitis G03.9 Hypertension I10 Dislocation of right shoulder joint S43.004A Urethral trauma S37.30XA Time Spent (min) 35
[2022-06-20] MEDS: HEPARIN SOD 5,000 UNIT/0.5 ML VIAL SQ SCH ×3 (06:18→22:09)
[2022-06-20] MEDS: DEXTROSE 5% IV SCH ×3 (06:20→22:09)
[2022-06-20] MEDS: ACYCLOVIR SOD IV SCH ×3 (06:20→22:09)
[2022-06-20 08:14] LABS: Hematocrit (blood only) 37.6 % (40.1-51.0); Hemoglobin 13.1 g/dl (14.0-18.0); Mean Corpuscular Hemoglobin 31.1 pg (25.0-34.0); Mean Corpuscular Hgb Conc 34.8 g/dL (32.0-36.0); Mean Corpuscular Volume 89.3 fL (80.0-100.0); Mean Platelet Volume 9.3 fL (9.4-12.4); Platelet Count 333 K/uL (130-400); RDW Coefficient of Variation 14.1 % (11.5-14.5); RDW Standard Deviation 43.8 fL (36.4-46.3); Red Blood Count 4.21 M/uL (4.63-6.08); White Blood Count 15.42 K/ul (4.8-10.8)
[2022-06-20] MEDS: ACETAMINOPHEN 325 MG TAB PO PRN ×2 (08:25→13:23)
[2022-06-20] MEDS: lisinopril 40 MG TAB PO SCH (08:26)
[2022-06-20] MEDS: PANTOprazole 40 MG in SYRINGE 0 ML IV SCH (08:26)
[2022-06-20 08:39] LABS: BUN Creatinine Ratio 20.6 (10-20); Calcium 8.6 mg/dl (8.5-10.1); Creatinine Clr Calc Pharmacy 167.5 ml/min; Est GFR (African American) 128.2 ml/min; Est GFR (Non-African American) 110.6 ml/min; Potassium 4.2 mmol/L (3.5-5.1)
[2022-06-20] MEDS: cefTRIAXone SODIUM 2,000 MG in DEXTROSE 5% 50 ML IV SCH (08:49)
--- NOTE | 2022-06-20 11:04 | Hospitalist Progress Note ---
Date of Service June 20, 2022 Assessment & Plan (1) Altered mental state: Plan: Now resolved -CT scan of the head was done, we did not show any acute findings -CT C-spine did not show any fracture or dislocation -Chest x-ray did not show any acute pathology -CT abdomen showed evidence of T12/L1 compression fracture but otherwise normal -Toxicology was positive for marijuana, which his daughter corroborates that he takes -Lumbar puncture did not suggest bacterial meningitis - (2) Bacteremia: Plan: Source is unknown Initially on Vancomycin, has been discontinued Growing gram-positive cocci in clusters, pansensitive Ampicillin, Ceftriaxone have been discontinued by ID Nafcillin 1g Q6 H has been started, will need it for 4 weeks per ID, appreciate recs 2 D ECHO did not suggest any vegetations on the valves Repeat cultures have been negative (3) Meningitis: Plan: suspected meningitis MRI brain showed some questionable enhancement Initially started on broad spectrum anti biotics CSF cultures did not suggest bacterial meningitis, the rest of CSF studies pending Continue Acyclovir for now until all the cultures have resulted Appreciate ID recs (4) Hypertension: Plan: Now under better control Continue Lisinopril and Cravedilol (5) Dislocation of right shoulder joint: Plan: Has been reduced However, per Ortho will need definitive ORIF when medically stable Patient will need at least 4 weeks of antibiotics before attempting repair He lives in [place], and may have to find a surgeon there after his antibiotics (6) Urethral trauma: Plan: Due to traumatic removal of egan Hematuria has resolved per urology, egan should be left in for 1 week 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 He needs antibiotics for 4 weeks and also needs his shoulder repaired after antibiotics He prefers to go back to [place]. Will consult case management to help in planning [facility] #[phone] Amandajose e will be available if other phone number does not work. Family #[phone]. DVT prophylaxis: SCDs Admission and Anticipated Discharge Date Admission Date: June 12, 2022 Subjective patient seen abd examined, son by the bed side, provided interpretation. 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 Physical Exam Physical Exam: Awake, alert, oriented HEENT--PERRL, EOMI, mucous membranes and oropharynx mildly dry Neck--supple. No JVD. No bruits. Thyroid normal, trachea midline, no dandy nopathy. Heart--normal S1 and S2. No murmurs, rubs or gallops. Lungs--Reduced air entry Abdomen--normal bowel sounds and soft. Mild epigastric and left sided abdominal pain Extremities--no cyanosis or clubbing. No edema. Dermatologic--normal skin turgor, normal color, no abnormal lymph nodes, no rash. Neurologic--cranial nerves II through XII grossly intact. Rheumatologic--normal range of motion. Psychiatric--unable to assess. Results & Data Results & Data ([facility]) Vital Signs (Past 12 Hours) Vital Signs Temp Pulse Pulse Resp BP Pulse Ox O2 Del Method 06/20/22 07:50 98.1 F 69 19 143/81 H 96 Room Air 06/20/22 03:00 98.4 F 71 20 123/78 94 Room Air 06/20/22 00:00 77 06/19/22 23:06 98.4 F 73 18 114/66 94 Room Air PG Care Time/CCT Total # of Minutes Spent Total Time Spent with Patient: Total time spent is greater than 50% in coordination of care (as documented) at patient's floor/unit and/or counseling patient: Coding Level of Care Code 63902 Subseq Hosp Care Lvl 2 Diagnoses Altered mental state R41.82 Bacteremia R78.81 Meningitis G03.9 Hypertension I10 Dislocation of right shoulder joint S43.004A Urethral trauma S37.30XA Time Spent (min) 35
[2022-06-20] MEDS: NAFCILLIN SODIUM 1,000 MG in DEXTROSE 5% 100 ML IV SCH ×2 (13:20→18:22)
[2022-06-20] MEDS: PANTOprazole 40 MG TAB PO SCH (13:21)
[2022-06-20 19:47] LABS: Cryptococcal Antigen Not Detected (Not Detected); Source Serum
[2022-06-21] MEDS: NAFCILLIN SODIUM 1,000 MG in DEXTROSE 5% 100 ML IV SCH ×5 (00:36→21:47)
[2022-06-21 05:56] LABS: Hematocrit (blood only) 37.7 % (40.1-51.0); Hemoglobin 12.8 g/dl (14.0-18.0); Mean Corpuscular Volume 91.3 fL (80.0-100.0); Mean Platelet Volume 9.2 fL (9.4-12.4); Platelet Count 331 K/uL (130-400); RDW Coefficient of Variation 14.1 % (11.5-14.5); RDW Standard Deviation 44.1 fL (36.4-46.3); Red Blood Count 4.13 M/uL (4.63-6.08); White Blood Count 15.67 K/ul (4.8-10.8)
[2022-06-21] MEDS: ACYCLOVIR SOD IV SCH ×3 (06:11→21:47)
[2022-06-21] MEDS: DEXTROSE 5% IV SCH ×3 (06:11→21:47)
[2022-06-21] MEDS: HEPARIN SOD 5,000 UNIT/0.5 ML VIAL SQ SCH ×3 (06:12→21:47)
[2022-06-21 06:22] LABS: BUN Creatinine Ratio 18.7 (10-20); C Reactive Protein 2.74 mg/dl (0-0.5); Calcium 8.7 mg/dl (8.5-10.1); Creatinine Clr Calc Pharmacy 150.8 ml/min; Est GFR (African American) 123.1 ml/min; Est GFR (Non-African American) 106.2 ml/min; Potassium 4.1 mmol/L (3.5-5.1)
[2022-06-21] MEDS: ACETAMINOPHEN 325 MG TAB PO PRN ×2 (08:35→21:47)
[2022-06-21] MEDS: PANTOprazole 40 MG TAB PO SCH (08:36)
[2022-06-21] MEDS: lisinopril 40 MG TAB PO SCH (08:36)
--- NOTE | 2022-06-21 14:38 | Hospitalist Progress Note ---
Date of Service June 21, 2022 Assessment & Plan (1) Altered mental state: Plan: Now resolved -CT scan of the head was done, we did not show any acute findings -CT C-spine did not show any fracture or dislocation -Chest x-ray did not show any acute pathology -CT abdomen showed evidence of T12/L1 compression fracture but otherwise normal -Toxicology was positive for marijuana, which his daughter corroborates that he takes -Lumbar puncture did not suggest bacterial meningitis - (2) Bacteremia: Plan: Source is unknown Initially on Vancomycin, has been discontinued Growing gram-positive cocci in clusters, pansensitive Ampicillin, Ceftriaxone have been discontinued by ID Nafcillin 1g Q6 H has been started, will need it for 4 weeks per ID, appreciate recs 2 D ECHO did not suggest any vegetations on the valves Repeat cultures have been negative The IV antibiotics would present a challenge because patient lives in [place] and does not have insurance or PCP I spoke with ID and she said, we can do Zyvox in lieu of nafcillin, although nafcillin remains the choice number 1 SW is trying to set up a PCP in [place] (3) Meningitis: Plan: suspected meningitis MRI brain showed some questionable enhancement Initially started on broad spectrum anti biotics CSF cultures did not suggest bacterial meningitis, the rest of CSF studies pending Continue Acyclovir for now until all the cultures have resulted Appreciate ID recs (4) Hypertension: Plan: Now under better control Continue Lisinopril and Cravedilol (5) Dislocation of right shoulder joint: Plan: Has been reduced However, per Ortho will need definitive ORIF when medically stable Patient will need at least 4 weeks of antibiotics before attempting repair He lives in [place], and may have to find a surgeon there after his antibiotics (6) Urethral trauma: Plan: Due to traumatic removal of egan Hematuria has resolved per urology, egan should be left in for 1 week and then outpatient cystoscopy 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 He needs antibiotics for 4 weeks and also needs his shoulder repaired after antibiotics He prefers to go back to [place]. The IV antibiotics would present a challenge because patient lives in [place] and does not have insurance or PCP I spoke with ID and she said, we can do Zyvox in lieu of nafcillin, although nafcillin remains the choice number 1 SW is trying to set up a PCP in [place] DIL #[phone] Ifeanyi will be available if other phone number does not work. Family #[phone]. DVT prophylaxis: SCDs Admission and Anticipated Discharge Date Admission Date: June 12, 2022 Subjective patient seen abd examined, son by the bed side, provided interpretation. 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 Physical Exam Physical Exam: Awake, alert, oriented HEENT--PERRL, EOMI, mucous membranes and oropharynx mildly dry Neck--supple. No JVD. No bruits. Thyroid normal, trachea midline, no adenopathy. Heart--normal S1 and S2. No murmurs, rubs or gallops. Lungs--Reduced air entry Abdomen--normal bowel sounds and soft. Mild epigastric and left sided abdominal pain Extremities--no cyanosis or clubbing. No edema. Dermatologic--normal skin turgor, normal color, no abnormal lymph nodes, no rash. Neurologic--cranial nerves II through XII grossly intact. Rheumatologic--normal range of motion. Psychiatric--unable to assess. Results & Data Results & Data ([facility]) Vital Signs (Past 12 Hours) Vital Signs Temp Pulse Pulse Resp BP Pulse Ox O2 Del Method 06/21/22 12:49 99.0 F 73 18 132/73 94 Room Air 06/21/22 11:54 Room Air 06/21/22 08:00 67 06/21/22 08:36 98.8 F 71 17 131/63 94 Room Air 06/21/22 03:28 98.1 F 83 16 111/69 94 Room Air PG Care Time/CCT Total # of Minutes Spent Total Time Spent with Patient: Total time spent is greater than 50% in coordination of care (as documented) at patient's floor/unit and/or counseling patient: Coding Level of Care Code 64865 Subseq Hosp Care Lvl 2 Diagnoses Altered mental state R41.82 Bacteremia R78.81 Meningitis G03.9 Hypertension I10 Dislocation of right shoulder joint S43.004A Urethral trauma S37.30XA Time Spent (min) 35
[2022-06-22] MEDS: NAFCILLIN SODIUM 1,000 MG in DEXTROSE 5% 100 ML IV SCH ×2 (05:14→13:13)
[2022-06-22] MEDS: DEXTROSE 5% IV SCH (05:15)
[2022-06-22] MEDS: HEPARIN SOD 5,000 UNIT/0.5 ML VIAL SQ SCH ×2 (05:15→15:04)
[2022-06-22] MEDS: ACYCLOVIR SOD IV SCH (05:15)
[2022-06-22 07:52] LABS: Hematocrit (blood only) 37.8 % (40.1-51.0); Hemoglobin 12.9 g/dl (14.0-18.0); Mean Corpuscular Hemoglobin 31.5 pg (25.0-34.0); Mean Corpuscular Hgb Conc 34.1 g/dL (32.0-36.0); Mean Corpuscular Volume 92.2 fL (80.0-100.0); Mean Platelet Volume 9.8 fL (9.4-12.4); Platelet Count 340 K/uL (130-400); RDW Coefficient of Variation 14.6 % (11.5-14.5); RDW Standard Deviation 45.8 fL (36.4-46.3); White Blood Count 12.84 K/ul (4.8-10.8)
[2022-06-22 08:14] LABS: BUN Creatinine Ratio 18.8 (10-20); Calcium 8.6 mg/dl (8.5-10.1); Creatinine Clr Calc Pharmacy 164.7 ml/min; Est GFR (African American) 127.4 ml/min; Est GFR (Non-African American) 109.9 ml/min; Potassium 4.2 mmol/L (3.5-5.1)
[2022-06-22] MEDS: PANTOprazole 40 MG TAB PO SCH (10:06)
[2022-06-22] MEDS: lisinopril 40 MG TAB PO SCH (10:06)
--- NOTE | 2022-06-22 12:06 | Hospitalist Progress Note ---
Date of Service June 22, 2022 Assessment & Plan (1) Altered mental state: Plan: Now resolved -CT scan of the head was done, we did not show any acute findings -CT C-spine did not show any fracture or dislocation -Chest x-ray did not show any acute pathology -CT abdomen showed evidence of T12/L1 compression fracture but otherwise normal -Toxicology was positive for marijuana, which his daughter corroborates that he takes -Lumbar puncture did not suggest bacterial meningitis (2) Bacteremia: Plan: Source is unknown Initially on Vancomycin, has been discontinued Growing gram-positive cocci in clusters, pansensitive Ampicillin, Ceftriaxone have been discontinued by ID Nafcillin 1g Q6 H has been started, will need it for 4 weeks per ID, appreciate recs 2 D ECHO did not suggest any vegetations on the valves Repeat cultures have been negative The IV antibiotics would present a challenge because patient lives in [place] and does not have insurance or PCP I spoke with ID and she said, we can do Zyvox in lieu of nafcillin, although nafcillin remains the choice number 1 SW is trying to set up a PCP in [place] will discharge him on PO Zyvox for at least 2 weeks (3) Meningitis: Plan: suspected meningitis MRI brain showed some questionable enhancement Initially started on broad spectrum anti biotics CSF cultures did not suggest bacterial meningitis, the rest of CSF studies pending Continue Acyclovir for now until all the cultures have resulted Appreciate ID recs (4) Hypertension: Plan: Now under better control Continue Lisinopril and Cravedilol (5) Dislocation of right shoulder joint: Plan: Has been reduced However, per Ortho will need definitive ORIF when medically stable Patient will need at least 4 weeks of antibiotics before attempting repair He lives in [place], and may have to find a surgeon there after his antibiotics (6) Urethral trauma: Plan: Due to traumatic removal of egan Hematuria has resolved per urology, gean should be left in for 1 week and then outpatient cystoscopy 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 He needs antibiotics for 4 weeks and also needs his shoulder repaired after antibiotics He prefers to go back to [place]. The IV antibiotics would present a challenge because patient lives in [place] and does not have insurance or PCP I spoke with ID and she said, we can do Zyvox in lieu of nafcillin, although nafcillin remains the choice number 1 SW is trying to set up a PCP in [place] DIL #[phone] Ifeanyi will be available if other phone number does not work. Family #[phone]. DVT prophylaxis: SCDs Admission and Anticipated Discharge Date Admission Date: June 12, 2022 Subjective patient seen abd examined, son by the bed side, provided interpretation. 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 Physical Exam Physical Exam: Awake, alert, oriented HEENT--PERRL, EOMI, mucous membranes and oropharynx mildly dry Neck--supple. No JVD. No bruits. Thyroid normal, trachea midline, no adenopathy. Heart--normal S1 and S2. No murmurs, rubs or gallops. Lungs--Reduced air entry Abdomen--normal bowel sounds and soft. Mild epigastric and left sided abdominal pain Extremities--no cyanosis or clubbing. No edema. Dermatologic--normal skin turgor, normal color, no abnormal lymph nodes, no rash. Neurologic--cranial nerves II through XII grossly intact. Rheumatologic--normal range of motion. Psychiatric--unable to assess. Results & Data Results & Data ([facility]) Vital Signs (Past 12 Hours) Vital Signs Temp Pulse Pulse Resp BP BP Pulse Ox 06/22/22 11:22 98.6 F 65 18 155/79 H 95 06/22/22 08:00 66 06/22/22 07:01 97.5 F L 54 L 20 119/81 99 06/22/22 03:17 98.2 F 75 18 150/75 H 94 O2 Del Method 06/22/22 11:22 Room Air 06/22/22 08:00 06/22/22 07:01 Room Air 06/22/22 03:17 Room Air PG Care Time/CCT Total # of Minutes Spent Total Time Spent with Patient: Total time spent is greater than 50% in coordination of care (as documented) at patient's floor/unit and/or counseling patient: Coding Level of Care Code 81350 Subseq Hosp Care Lvl 2 Diagnoses Altered mental state R41.82 Bacteremia R78.81 Meningitis G03.9 Hypertension I10 Dislocation of right shoulder joint S43.004A Urethral trauma S37.30XA Time Spent (min) 35
[2022-06-22 15:01] LABS: Metanephrine, Plasma 38 pg/mL (<=57); Normetanephrine Plasma 73 pg/mL (<=148); Total Metanephrine Plasma 111 pg/mL (<=205)
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
--- NOTE | 2022-07-02 16:39 | Coding Query ---
PRESENT ON ADMISSION QUERY To promote full compliance with coding requirements relating to pateint care, physician participation is requested in all cases of peer counselor uncertainty. Please assist us with the question(s) below: Please place an X within the parenthesis (x). The following diagnosis(es) listed in this patient's medical record require physician assistance to determine if they were present on admission (POA) or not. Please advise for each diagnosis whether it was present on admission, not present on admission, or if it was clinically undetermined. 1. SEPSIS - (sepsis is not documented until the Discharge Summary and the bacteremia was documented starting on Critical Care PN 06/13 with blood cultures taken upon admission) ( ) Present On Admission ( ) Not Present On Admission (x ) Clinically Undetermined Thank you Elyse Trotter *Definition of the present on admission (POA)-Present on admission is defined as present at the time the order for inpatient admission occurs. Conditions that develop during an outpatient encounter prior to a written order for inpatient admission (including emergency department, observation, or outpatient surgery) are considered present on admission. AMANUEL
--- NOTE | 2022-07-02 16:43 | Coding Query ---
CODING QUERY To promote full compliance with coding requirements relating to patient care, provider participation is requested in all cases of prison teacher uncertainty. Please assist us with the question(s) below: Coding Question(s): Please specify the suspected Meningitis that was treated during this admission. ( ) most likely possible Viral Meningitis. Please specify further below: ( ) most likely HSV meningitis ( ) most likely other Viral Meningitis: Please Specify ( x ) most likely Unspecified Viral Meningitis ( ) most likely possible Bacterial Meningitis ( ) most likely possible Other Meningitis: Please Specify ( ) most likely possible Unspecified Meningitis Physician's Response(s): Thank you Elyse Trotter Principal Diagnosis: "that condition established after study, to be chiefly responsible for occasioning the admission of the patient to the hospital for care." Co-Existing Principal Diagnosis: "when two or more diagnoses equally meet the criteria for principal diagnosis as determined by the circumstances of admission, diagnostic work up, and/or therapy provided, and the Alphabetic Index, Tabular List, or another coding guideline does not provide sequencing direction, any one of the diagnoses may be sequenced first." "When the physician has documented what appears to be a current diagnosis in the body of the record, but has not included the diagnosis in the final diagnostic statement, the physician should be asked whether the diagnosis should be added." ([facility]oding [facility] 2 QTR90. p3-4) AMANUEL
--- NOTE | 2022-07-02 16:47 | Coding Query ---
CODING QUERY To promote full compliance with coding requirements relating to patient care, provider participation is requested in all cases of reimbursement manager uncertainty. Please assist us with the question(s) below: Coding Question(s): There is documentation of Altered Mental Status with the H&P documenting "Altered mental status. DDx includes toxic/drug-induced and infectious", and upon Discharge Summary it is not clear the most likely source of the Altered Mental Status. Please specify below, in your clinical opinion, the most likely source: (x ) AMS most likely due to Sepsis/bacteremia ( ) AMS most likely due to possible Meningitis ( ) AMS most likely due to Other: Please Specify ( ) AMS with Unknown most likely source Physician's Response(s): Thank you Elyse Trotter Principal Diagnosis: "that condition established after study, to be chiefly responsible for occasioning the admission of the patient to the hospital for care." Co-Existing Principal Diagnosis: "when two or more diagnoses equally meet the criteria for principal diagnosis as determined by the circumstances of admission, diagnostic work up, and/or therapy provided, and the Alphabetic Index, Tabular List, or another coding guideline does not provide sequencing direction, any one of the diagnoses may be sequenced first." "When the physician has documented what appears to be a current diagnosis in the body of the record, but has not included the diagnosis in the final diagnostic statement, the physician should be asked whether the diagnosis should be added." (Source Coding [facility] 2 QTR90. p3-4) AMANUEL
== END 2022-06-22 16:59 | disposition home or self-care (01) | DRG 75 ==
LOC: ED 12:04 → SUATTDRO 15:27 → 1E 15:27 → 2E 06-18 18:59